=== PATIENT | male | born 1980 | race Asian ===

== ENCOUNTER 2023-12-14 16:35 | Inpatient (IN) | payer OTHER, MEDICARE, SELFPAY ==
[2023-12-10 12:20] VITALS: BMI 27.8
[2023-12-10 12:58] LABS: % Basophils 0.4 % (0-2); % Eosinophils 5.1 % (0-6); % Immature Granulocytes 0.3 % (0-0.5); % Lymphocytes 21.5 % (20.5-51.1); % Monocytes 7.7 % (1.7-9.3); Absolute Eosinophils 0.4 10^3/uL (0-0.7); Absolute Lymphocytes 1.6 10^3/uL (1.2-3.4); Absolute Monocytes 0.6 10^3/uL (0.1-0.6); Hematocrit 27.9 % (39.0-52.0); Hemoglobin 9.3 g/dL (13.0-18.0); Mean Corp Hgb Conc. 33.3 g/dL (33.0-37.0); Mean Corpuscular Hgb 30.5 pg (27.0-31.0); Mean Corpuscular Volume 91.5 fL (80.0-94.0); Mean Platelet Volume 9.8 fL (7.4-10.4); Nucleated Red Blood Cells % 0 % (-); Platelet Count 126 10^3/uL (130-400); Red Blood Cell Count 3.05 10^6/uL (4.70-6.10); White Blood Cell Count 7.6 10^3/uL (4.8-10.8)
[2023-12-10 13:13] LABS: INR 1.16; PT 14.9 Sec (11.4-14.6)
[2023-12-10 13:39] LABS: ALT (SGPT) 23 U/L (0-50); AST (SGOT) 29 U/L (17-59); Albumin 4.3 g/dl (3.5-5.0); Alkaline Phosphatase 75 U/L (38-126); Blood Urea Nitrogen 45 mg/dl (9-20); Calcium 8.8 mg/dl (8.4-10.2); Carbon Dioxide 34 mmol/L (22-30); Chloride 93 mmol/L (98-107); Direct Bilirubin 0.4 mg/dl (0.0-0.4); Estimated Creatinine Clearance 11 ml/min; Glucose 148 mg/dl (70-99); Potassium 4.8 mmol/L (3.5-5.1); Sodium 139 mmol/L (135-145); Total Bilirubin 1.2 mg/dl (0.2-1.3); Total Protein 7.8 g/dl (6.3-8.2); eGFR 7.13
[2023-12-10 14:04] LABS: Urine Albumin 2+ (Neg - Trace); Urine Bilirubin Negative (Negative); Urine Character Clear (Clear); Urine Color Yellow; Urine Glucose Trace (Negative); Urine Ketone Negative (Negative); Urine Leukocyte Negative (Negative); Urine Nitrite Negative (Negative); Urine Occult Blood 1+ (Negative); Urine Urobilinogen Negative (Neg - 1+)
[2023-12-10 14:35] LABS: Urine Amorphous Seen
[2023-12-10 14:37] LABS: Urine Red Blood Cell 0-2 /HPF (0-2)
--- NOTE | 2023-12-10 15:32 | CM ---
spoke with pt in PAT's we discussed preop CABG teaching including sternal and driving restrictions, heis pre vindep, lives with his and 2 daughters (7,8) in an apt with 10 steps to enter. he denies any dme's. he goes to hemodialysis at
[facility] MWF @ 1045am. he has the cardiac educ book, soap and instructions. he is agreeable to a f/u visit form the ct transtional care nurse after dc. cm role explained and all questions answered. plan is for CABG 12/16.
[2023-12-11 09:11] LABS: Glycohemoglobin (HgbA1c) 6.1 % (4.0-5.6)
[2023-12-14] VITALS (10 sets, daily range): BP systolic 153–180; BP diastolic 84–102; BMI 27.6
--- NOTE | 2023-12-14 13:39 | ED.GENMED ---
History of Present Illness
<LYNETTE Shea - Last Filed: 12/14/23 14:50>
General
Chief Complaint: Fainting/Passed Out
Source: patient
Exam Limitations: none
Time Seen by Provider: 12/14/23 13:08
Nursing documentation reviewed up to this point in time: agreed with
Travel History
Have you had any contact with someone who has COVID-19?: No
Do you have any symptoms of coronavirus? Fever > 100 degrees, chills, cough, shortness of breath, sore throat, loss of taste or smell, muscle aches, or headache?: No
History of Present Illness
History of Present Illness:
Patient is a 43-year-old male with past medical history of diabetes(not currently being treated as his hemoglobin A1c was good last time., History of hypertension hyperlipidemia chronic kidney failure end-stage renal disease with dialysis Thursday
Thursday CAD with stents due for bypass surgery next week by Dr. Chacon presents today for evaluation of fall. Patient reports he was walking outside and had not eaten since yesterday afternoon and dropped to his knees. He felt weak. He
reports this is likely because he has not eaten. He denies actually syncope he denies hitting his head he scraped his knees.
Review of Systems
<LYNETTE Shea - Last Filed: 12/14/23 14:50>
Review of Systems
Allergies reviewed?: Yes
All Other Systems: ROS reviewed and negative except as documented in HPI and ROS
Constitutional: Reports no symptoms; Denies fever
Respiratory: Reports cough; Denies trouble breathing
Cardiac: Reports no symptoms
ABD/GI: Reports no symptoms; Denies nausea, vomiting, diarrhea or black stools
: Reports no symptoms
Musculoskeletal: Reports no symptoms
Skin: Reports other (scrape to knees )
Phy Exam
<LYNETTE Shea - Last Filed: 12/14/23 14:50>
General Physical Exam
General Presentation: no apparent distress
General age: appears stated age
General Skin: warm and dry
General Habitus: normal
General Mental: alert
General Hydration: appears well hydrated
Cardiovascular Exam
Cardiovascular Exam: regular rate/rhythm, no murmur and normal peripheral pulses
Pulmonary Exam
Pulmonary Exam: lungs clear and no respiratory distress
Gastrointestinal Exam
Gastrointestinal Exam: non tender, soft and other (brown stool heme neg )
Neurological Exam
Neurological Exam: alert and oriented x3
Musculoskeletal Exam
Musculoskeletal Exam: full ROM
Skin Exam
Skin Exam: normal color
Course
<LYNETTE Shea - Last Filed: 12/14/23 14:50>
Orders/Labs/Results
Orders:
Orders
12/14/23 11:57
Electrocardiogram (*1) Urgent
Reason for Study: Syncope
EKG- Treatment ONCE
12/14/23 13:55
Complete Blood Count/With Diff Urgent
Comprehensive Metabolic Panel Urgent
12/14/23 15:02
CR Chest Portable - 1 View Urgent
Comment:
Reason For Exam: sob
Reason Study Needs to be Portable: Patient Unstable
12/14/23 15:03
Cardiac Monitoring- Treatment ONCE
Dextrose 50%-Water [Dextrose 50% Syringe] 12.5 grams IV [id number] PRN
Dextrose 50%-Water [Dextrose 50% Syringe] 25 grams IV NOW STA
Insulin Human Regular [Novolin R] 5 units IV NOW STA
Sodium Bicarbonate 50 meq IV NOW STA
Sodium Zirconium Cyclosilicate [Lokelma] 5 gram PO NOW STA
12/14/23 15:09
NEPHROLOGY CONSULT Routine
Consulting Provider: Sameera Girard
Was physician already notified: Yes
12/14/23 15:12
Cardiothoracic Surgery Consult Routine
Consulting Provider: Sharan Chacon
Was physician already notified: Yes
12/14/23 17:35
Potassium Urgent
Comment: draw 2 hours after regular insulin IV administration
Abnormal Lab Results
12/14/23
13:55
RBC 2.77 L 10^6/uL
(4.70-6.10)
Hgb 8.2 L g/dL
(13.0-18.0)
Hct 25.2 L %
(39.0-52.0)
MCHC 32.5 L g/dL
(33.0-37.0)
RDW 15.3 H %
(11.5-14.5)
Plt Count 122 L 10^3/uL
(130-400)
Absolute Neuts (auto) 7.4 H 10^3/uL
(1.4-6.5)
Absolute Monos (auto) 0.8 H 10^3/uL
(0.1-0.6)
Neutrophils % 76.6 H %
(42.2-75.2)
Lymphocytes % 12.6 L %
(20.5-51.1)
Potassium 5.5 H mmol/L
(3.5-5.1)
BUN 98 H mg/dl
(9-20)
Creatinine 13.4 H* mg/dL
(0.7-1.3)
Glucose 130 H mg/dl
(70-99)
12/14/23 13:55
Vital Signs
Initial and Last Documented VS:
Initial Vital Signs
Temp Pulse Resp BP Pulse Ox
98.6 F 90 18 179/101 94
12/14/23 11:54 12/14/23 11:54 12/14/23 11:54 12/14/23 11:54 12/14/23 11:54
Last Documented Vital Signs
Temp Pulse Resp BP Pulse Ox
98.6 F 90 18 179/101 94
12/14/23 11:54 12/14/23 11:54 12/14/23 11:54 12/14/23 11:54 12/14/23 11:54
<Krishna Vicente, - Last Filed: 12/14/23 15:28>
Orders/Labs/Results
Orders:
Orders
12/14/23 11:57
Electrocardiogram (*1) Urgent
Reason for Study: Syncope
EKG- Treatment ONCE
12/14/23 13:55
Complete Blood Count/With Diff Urgent
Comprehensive Metabolic Panel Urgent
12/14/23 15:02
CR Chest Portable - 1 View Urgent
Comment:
Reason For Exam: sob
Reason Study Needs to be Portable: Patient Unstable
12/14/23 15:03
Cardiac Monitoring- Treatment ONCE
Dextrose 50%-Water [Dextrose 50% Syringe] 12.5 grams IV [id number] PRN
Dextrose 50%-Water [Dextrose 50% Syringe] 25 grams IV NOW STA
Insulin Human Regular [Novolin R] 5 units IV NOW STA
Sodium Bicarbonate 50 meq IV NOW STA
Sodium Zirconium Cyclosilicate [Lokelma] 5 gram PO NOW STA
12/14/23 15:09
NEPHROLOGY CONSULT Routine
Consulting Provider: Sameera Girard
Was physician already notified: Yes
12/14/23 15:12
Cardiothoracic Surgery Consult Routine
Consulting Provider: Sharan Chacon
Was physician already notified: Yes
12/14/23 17:35
Potassium Urgent
Comment: draw 2 hours after regular insulin IV administration
Abnormal Lab Results
12/14/23
13:55
RBC 2.77 L 10^6/uL
(4.70-6.10)
Hgb 8.2 L g/dL
(13.0-18.0)
Hct 25.2 L %
(39.0-52.0)
MCHC 32.5 L g/dL
(33.0-37.0)
RDW 15.3 H %
(11.5-14.5)
Plt Count 122 L 10^3/uL
(130-400)
Absolute Neuts (auto) 7.4 H 10^3/uL
(1.4-6.5)
Absolute Monos (auto) 0.8 H 10^3/uL
(0.1-0.6)
Neutrophils % 76.6 H %
(42.2-75.2)
Lymphocytes % 12.6 L %
(20.5-51.1)
Potassium 5.5 H mmol/L
(3.5-5.1)
BUN 98 H mg/dl
(9-20)
Creatinine 13.4 H* mg/dL
(0.7-1.3)
Glucose 130 H mg/dl
(70-99)
12/14/23 13:55
Vital Signs
Initial and Last Documented VS:
Initial Vital Signs
Temp Pulse Resp BP Pulse Ox
98.6 F 90 18 179/101 94
12/14/23 11:54 12/14/23 11:54 12/14/23 11:54 12/14/23 11:54 12/14/23 11:54
Last Documented Vital Signs
Temp Pulse Resp BP Pulse Ox
98.6 F 90 18 179/101 94
12/14/23 11:54 12/14/23 11:54 12/14/23 11:54 12/14/23 11:54 12/14/23 11:54
<LYNETTE Shea - Last Filed: 12/14/23 14:50>
MDM/Problems Addressed
MDM/Problems Addressed:
43 yr old male ESRD , CAD on hemodialysis was walking his dog today and fell to his knees. He felt weak. He believes it is from the fact that he did not eat since yesterday afternoon. He presents to the ER awake alert has no complaints except
that he is hungry. He is due for dialysis today. He reports that he previously was a diabetic but his hemoglobin A1c was around 5 and therefore they stopped his medication. He presents with a hemoglobin of 8.2. He recently had blood work December 09
as an outpatient and had a hemoglobin 9.3. This was done because he is scheduled to have bypass surgery next week. He denies any black or dark stools. On exam he has brown stool heme-negative. He has a normal white count of 9.7 is afebrile.
Potassium 5.5 BUN/creatinine obviously elevated 98 and 2.4. Glucose 130. He has abrasions to bilateral knees and reports tetanus is up-to-date. On exam he denies shortness of breath does have some x-ray wheezing and did go down to the high 80s on
room air though he denies shortness of breath. He denies any recent fevers but has had a mild cough recently. Will check chest x-ray
Chronic conditions affecting care:
Hemodialysis
<Krishna Vicente DO - Last Filed: 12/14/23 15:28>
*Critical Care Note
Total Time (30-74mins, 75-104mins- exclusive of procedures): 32
ED Attending Note
<LYNETTE Shea - Last Filed: 12/14/23 14:50>
-
Portions of this chart may have been created with voice recognition software.� Occasional wrong word or��sound alike� substitutions may have occurred due to the inherent limitations of voice recognition software.
<Krishna Vicente DO - Last Filed: 12/14/23 15:28>
ED Attending Note
Patient seen and examined by attending physician: Yes
I performed the substantive portion of visit, reviewed & personally made and approve the management plan that is documented in note by myself or ADEEL.: Yes
ED Attending Note:
Seen with INSTRUCTIONAL DESIGNER examined independently briefly 43-year male ESRD followed at [facility] scheduled for bypass surgery this at [facility] Dr. Chacon's outside walking passed out scratched his knees
Here he is currently ill-appearing, sats in the high 80s comes up on oxygen EKG noted potassium and labs noted chest x-ray pending believe however situation would be prudent to keep him here at [facility] message sent to hospitalist CT surgery and
nephrology
Discharge Plan
Departure
Patient Disposition: Admit
Date of Disposition: 12/14/23
Time of Disposition: 15:13
Admit to: Telemetry
Presentation/result/management discussed w/ accepting MD/DO: Hospitalist
Patient with high blood pressure during this ER visit?: Yes
Condition: Fair
Discharge Problem:
Syncope and collapse, Anemia in ESRD (end-stage renal disease), Hypoxemia
Prescriptions:
No Action
atorvastatin 40 mg Tablet
40 mg PO DAILY
carvedilol 25 mg Tablet
25 mg PO BID
Dialyvite 800 0.8 mg Tablet
1 tab PO DAILY
losartan 100 mg Tablet
100 mg PO DAILY
amoxicillin-pot clavulanate 875-125 mg Tablet
1 tab PO BID
cholecalciferol (vitamin D3) [Vitamin D3] 25 mcg (1,000 unit) Tablet
25 mcg PO DAILY
sevelamer carbonate 800 mg Tablet
800 mg PO TID
prasugrel 10 mg Tablet
10 mg PO DAILY
aspirin 81 mg Tablet,Delayed Release (/Ec)
81 mg PO DAILY
lidocaine-prilocaine 2.5-2.5 % Cream
1 applic TOPICAL DAILYPRN PRN (Reason: before hemodialysis)
Medical Marijuana
2 tab PO DAILYPRN PRN (Reason: mild pain)
Referrals:
eGrman Borrero MD [Family Provider] -
Interventions
Interventions:
*Risk Screen - Suicide Last Done: 12/14/23 11:54
*General Assessment Last Done: 12/14/23 11:54
*Neglect/Abuse Screening Last Done: 12/14/23 11:54
*ED COVID-19 Vaccine History Last Done: 12/14/23 11:54
Discharge Date and Time
Print Language: SLOVAK
[2023-12-14 14:24] LABS: % Basophils 0.3 % (0-2); % Eosinophils 1.5 % (0-6); % Immature Granulocytes 0.4 % (0-0.5); % Lymphocytes 12.6 % (20.5-51.1); % Monocytes 8.6 % (1.7-9.3); % Neutrophils 76.6 % (42.2-75.2); Absolute Eosinophils 0.2 10^3/uL (0-0.7); Absolute Lymphocytes 1.2 10^3/uL (1.2-3.4); Absolute Monocytes 0.8 10^3/uL (0.1-0.6); Absolute Neutrophils 7.4 10^3/uL (1.4-6.5); Hematocrit 25.2 % (39.0-52.0); Hemoglobin 8.2 g/dL (13.0-18.0); Mean Corp Hgb Conc. 32.5 g/dL (33.0-37.0); Mean Corpuscular Hgb 29.6 pg (27.0-31.0); Mean Platelet Volume 10.3 fL (7.4-10.4); Nucleated Red Blood Cells % 0 % (-); Platelet Count 122 10^3/uL (130-400); Red Blood Cell Count 2.77 10^6/uL (4.70-6.10); Red Cell Dist. Width 15.3 % (11.5-14.5); White Blood Cell Count 9.7 10^3/uL (4.8-10.8)
[2023-12-14 14:40] LABS: ALT (SGPT) 21 U/L (0-50); AST (SGOT) 27 U/L (17-59); Albumin 4.1 g/dl (3.5-5.0); Alkaline Phosphatase 76 U/L (38-126); Blood Urea Nitrogen 98 mg/dl (9-20); Calcium 9.1 mg/dl (8.4-10.2); Carbon Dioxide 23 mmol/L (22-30); Chloride 102 mmol/L (98-107); Glucose 130 mg/dl (70-99); Potassium 5.5 mmol/L (3.5-5.1); Sodium 140 mmol/L (135-145); Total Protein 7.5 g/dl (6.3-8.2); eGFR 4.31
[2023-12-14] MEDS: NOVOLIN R 5 UNITS IV (15:19)
[2023-12-14] MEDS: DEXTROSE 50% SYRINGE 25 GRAMS IV (15:20)
[2023-12-14] MEDS: SODIUM BICARBONATE 50 MEQ IV (15:24)
[2023-12-14] MEDS: LOKELMA 5 GRAM PO (15:24)
--- NOTE | 2023-12-14 15:30 | HPS.HSE ---
Family Physician
-
Family Physician: German Borrero MD
Chief Complaint
-
Dizziness, fall, knee abrasions, chest pain with productive yellow cough
History of Present Illness
43-year-old male states he was walking outside when he felt weak dropping to his knees where he sustained some abrasions. He reports he had not eaten since yesterday afternoon and felt it was due to this. He does report some chest pain with
coughing yesterday. He missed dialysis this a.m. at [facility] [place] for end-stage renal disease. He typically gets dialysis Thursday and Fridays. He has history of CAD with cardiac stents and is due for CABG on
12/17/[address] Chacon. The patient reports he has been under the care of a machine pecan picker at [place] for osteomyelitis of his left heel. He wanted to do debridement, but needed cardiac clearance first. He currently has a nickel sized wound to
the left heel with no active drainage no surrounding erythema. He reports he has been on Augmentin for the past 2 months but has not taken it in the last week and a half due to cost of it at the pharmacy. He is unsure of his cardiothoracic surgeon
is aware of his osteomyelitis to the heel. Patient denies headache, LOC, neck pain, palpitations, shortness breath, abdominal pain, nausea, vomit, diarrhea, urinary symptoms. He has medical history of CAD/cardiac stents, HTN, HLD, ESRD dialysis
Thursday, anemia of chronic disease/CKD, chronic thrombocytopenia, DM2�controlled, HLD, osteomyelitis left heel
Medical History
Past Medical History
Past Medical History: Reports Other
Additional Past Medical History:
CAD/cardiac stents
HTN,
HLD
ESRD dialysis Thursday
anemia of chronic disease/CKD
chronic thrombocytopenia
DM2�controlled
HLD
Osteomyelitis left heel
Past Surgical History: Reports Other
Additional Past Surgical History:
CAD with cardiac stents
Left forearm dialysis fistula
Left toe first and fifth amputation
bilateral cataract extraction
Social History
Tobacco: Non-smoker
Alcohol: None
Drug: None
Employment: Disabled
Family History
Family History: Not pertinent
Allergies / Home Medications
Allergies reflects when Allergies were last updated in [employer].
Home Medications with original date entered in [employer]
Allergy/Medication List:
Allergies
Allergy/AdvReac Type Severity Reaction Status Date / Time
vancomycin Allergy chills Verified 12/14/23 11:57
Home Medications
amoxicillin 875 mg-potassium clavulanate 125 mg tablet 1 tab PO BID 12/08/23
atorvastatin 40 mg tablet 40 mg PO DAILY 12/08/23
carvedilol 25 mg tablet 25 mg PO BID 12/08/23
cholecalciferol (vitamin D3) 25 mcg (1,000 unit) tablet (Vitamin D3) 25 mcg PO DAILY 12/08/23
losartan 100 mg tablet 100 mg PO DAILY 12/08/23
prasugrel 10 mg tablet 10 mg PO DAILY 12/08/23
sevelamer carbonate 800 mg tablet 800 mg PO TID 12/08/23
vitamin B complex-vitamin C-folic acid 0.8 mg tablet (Dialyvite 800) 1 tab PO DAILY 12/08/23
Medical Marijuana 2 tab PO DAILYPRN PRN mild pain 12/14/23
aspirin 81 mg tablet,delayed release 81 mg PO DAILY 12/14/23
lidocaine-prilocaine 2.5 %-2.5 % topical cream 1 applic topical DAILYPRN PRN before hemodialysis 12/14/23
Review of Systems
-
History Source: Patient
A 12 point ROS was completed and negative except as noted: Yes
Constitutional: Denies Fever or Chills
EENT: Denies Sore Throat or Runny Nose
Respiratory: Reports Cough (Productive yellow in color); Denies Trouble Breathing
Cardiac: Reports Chest Pain and Other (Near syncope with lightheadedness); Denies Diaphoresis or Palpitations
Abdomen/GI: Reports Nausea; Denies Abdominal Pain, Vomiting, Diarrhea, Constipated or Bloody Stools
: Denies Dysuria, Frequency, Flank Pain or Incontinence
Musculoskeletal: Reports Other (Chronic left heel open wound nondraining); Denies Joint Pain, Joint Swelling or Edema
Skin: Reports Other (Abrasions bilateral knees secondary to fall); Denies Itching or Rash
Neurological: Reports Dizzy and Weakness (Generalized); Denies Headache
Endocrine: Reports No Symptoms
Hematologic/Lymphatic: Reports No Symptoms
Psych: Reports Calm
Physical Exam
Vital Signs
Vital Signs
Temp Pulse Resp BP Pulse Ox
98.6 F 90 18 179/101 94
12/14/23 11:54 12/14/23 11:54 12/14/23 11:54 12/14/23 11:54 12/14/23 11:54
Physical Exam
General: Comfortable and Conversant; No Pain, Fever or Chills
HEENT: NormoCephalic, Anicteric, Moist mucous membranes, PERRLA, [place] Conjunctivae, No Ptosis and Neck Nontender
Respiratory: Clear; No Wheezes, Rales or Rhonchi
Cardiac: S1/S2 and Regular Rhythm; No Murmur, Rub, Gallop or Peripheral Edema
Breast: Deferred by me
GI: Non Tender, Non Distended, Normal Bowel Sounds and No Hepatosplenomegaly
Rectal: Deferred by Provider
Genito-urinary: Deferred by me
Musculoskeletal: No Clubbing, No Cyanosis and No Edema
Skin: Warm, Dry, Ulcers (Chronic left heel wound approximately 2.5 cm, dry, no drainage, negative surrounding erythema, history of chronic osteomyelitis in this area) and Other (Dialysis fistula left forearm with positive thrill); No Rash or Jaundice
Neuro: AO x 3, No Motor Deficits, Cranial Nerves Intact and No Sensory Deficits; No Slurred Speech, Tremors or Sedated
Psych: Calm
Laboratory Results
-
12/14/23 13:55
Laboratory Results
Total Bilirubin 1.0 mg/dl (0.2-1.3) 12/14/23 13:55
AST 27 U/L (17-59) 12/14/23 13:55
ALT 21 U/L (0-50) 12/14/23 13:55
Alkaline Phosphatase 76 U/L (38-126) 12/14/23 13:55
Impression/Plan
-
Impression/plan:
Admit to telemetry
#Acute near syncope unclear etiology
Abrasions bilateral knees
-Check orthostatics
-Check COVID swab
-PT/OT/case management
CXR: No acute disease of the chest. Mild cardiomegaly
#Chest pain
#Prolonged QTc
-Hold prolonged QTc agents
-Consult cardiology CBC - follows at [facility]
-Check troponins
EKG: NSR 90 bpm, QTc 455 MS
# Acute hyperkalemia secondary to missed dialysis
Patient given Lokelma 5 g in ER, finding an insulin IV with dextrose and bicarb
-Follow BMP
#Chronic osteomyelitis left heel
-Is on chronic Augmentin has not taken the last week and a half due to cost we will resume
-Patient follows with machine pecan picker at [place] was due for debridement but needed cardiac clearance first
-Consult wound care for left heel open wound
#HTN�benign
BP 179/101
-Continue carvedilol 25 mg p.o. twice daily with hold parameters, losartan 100 mg daily
-Will give Coreg 25 mg now
-IV hydralazine 5 mg every 6 as needed SBP>160
#ESRD on dialysis Thursday
Missed dialysis at [facility]
-Consult Nephro
-Follow BMP
-Continue sevelamer 800 mg 3 times daily
#Anemia chronic disease/CKD
Creatinine 8.2 was 9.3 on 12/10/2023
-Continue B complex, vitamin D supplement
#Chronic thrombocytopenia
PLT 122 appears baseline
-Follow CBC
#CAD/cardiac stents
-Patient due for CABG by Dr. Chacon next week he was made aware and will possibly be pushed to later date
-Continue carvedilol, aspirin, statin
-Continue Effient 10 mg daily
-Consult cardiothoracic surgery
#DM2-controlled
Will check A1c
#HLD
-Continue statin
DVT prophylaxis
Subcu heparin
Full code
--- NOTE | 2023-12-14 15:31 | W.PN.UPDATE ---
Update Note
Progress Note Update
I saw and examined the patient.
The CANDY STARCH MOLD PRINTER or PA's note was reviewed and I agree with the note.
Comment: 43-year-old male with past medical history of diabetes, CAD with stents due for bypass, hypertension, hyperlipidemia, ESRD on hemodialysis came to the hospital with near syncope and fall. Per patient he has not eaten since yesterday and
then dropped to his knees when he was walking his dog. Denies any chest pain, shortness of breath. He missed his dialysis today. Consult nephrology, CT surgery. Monitor for any arrhythmia.check trop. cardiology. will need HD. CXR without any
PNA.
General: No Apparent Distress and Obese
HEENT: PERRLA
Respiratory: Clear to Auscultation and Rales; Negative Wheezes
Cardiac: Regular Rhythm and S1/S2
GI: Soft and Nontender
Musculoskeletal: No Edema
Skin: Warm and Dry; Negative Rash
Neuro: AO x 3
Psych: Calm
I spent a total of 77 minutes with the patient or on the floor. More than 50% of this time involved counseling and coordination of care.
--- NOTE | 2023-12-14 16:00 | W.CON.NEPH ---
Consultation
-
Date/Time Consultation Requested: 12/14/2023 15:09
Date/Time Consultation Performed: 12/14/2023 4:00PM
Requesting Provider: Krishna Vicente
Performing Provider: Sameera Girard
Reason for Consultation: ESRD on HD
Medical History
-
Chief Complaint: ESRD on HD
History of Present Illness:
Mr. Parr is a 43YOM with PMH of CAD, HTN, DLD, ESRD on HD (MWF) anemia, thrombocytoepnia, T2DM, DLD who presents to the [facility] after a feeling of weakness.
He states he was walking his dog and fell down to his knees. He did not lose consciousness. He informed his dialysis unit who told him to present to the nearest ER. States that he feels fine, he is breathing well. Tries to be compliant with a renal
diet but not always.
He is due for CABG in [address] Chacon.
He dialyzes in [place]. He goes MWF. Performs through [facility]. No issues recently.
Past Medical History
CAD/cardiac stents, HTN, HLD, ESRD dialysis Thursday, anemia of chronic disease/CKD, chronic thrombocytopenia, DM2�controlled, HLD
Past Surgical History: Other
Social History
Tobacco: Non-Smoker
Alcohol: None
Drug: None
Personal:
Living: With Family
Family History
Family History: Not Pertinent
Allergies / Home Medications
Allergy/AdvReac Type Severity Reaction Status Date / Time
vancomycin Allergy chills Verified 12/14/23 11:57
�Medication �Instructions �Recorded �Confirmed �Type
amoxicillin 875 mg-potassium 1 tab PO BID 12/08/23 12/14/23 History
clavulanate 125 mg tablet
atorvastatin 40 mg tablet 40 mg PO DAILY 12/08/23 12/14/23 History
carvedilol 25 mg tablet 25 mg PO BID 12/08/23 12/14/23 History
cholecalciferol (vitamin D3) 25 25 mcg PO DAILY 12/08/23 12/14/23 History
mcg (1,000 unit) tablet (Vitamin
D3)
losartan 100 mg tablet 100 mg PO DAILY 12/08/23 12/14/23 History
prasugrel 10 mg tablet 10 mg PO DAILY 12/08/23 12/14/23 History
sevelamer carbonate 800 mg tablet 800 mg PO TID 12/08/23 12/14/23 History
vitamin B complex-vitamin C-folic 1 tab PO DAILY 12/08/23 12/14/23 History
acid 0.8 mg tablet (Dialyvite 800)
Medical Marijuana 2 tab PO DAILYPRN PRN mild pain 12/14/23 12/14/23 History
aspirin 81 mg tablet,delayed 81 mg PO DAILY 12/14/23 12/14/23 History
release
lidocaine-prilocaine 2.5 %-2.5 % 1 applic topical DAILYPRN PRN 12/14/23 12/14/23 History
topical cream before hemodialysis
Review of Systems
-
History Source: Patient
All other systems: Negative unless noted
Constitutional: Weight Gain
Physical Exam
Vital Signs
Vital Signs
Temp Pulse Resp BP Pulse Ox
98.6 F 90 18 179/101 94
12/14/23 11:54 12/14/23 11:54 12/14/23 11:54 12/14/23 11:54 12/14/23 11:54
Lab Results
WBC 9.7 10^3/uL (4.8-10.8) 12/14/23 13:55
RBC 2.77 10^6/uL (4.70-6.10) L 12/14/23 13:55
Hgb 8.2 g/dL (13.0-18.0) L 12/14/23 13:55
Hct 25.2 % (39.0-52.0) L 12/14/23 13:55
Plt Count 122 10^3/uL (130-400) L 12/14/23 13:55
Sodium 140 mmol/L (135-145) 12/14/23 13:55
Chloride 102 mmol/L (98-107) 12/14/23 13:55
Carbon Dioxide 23 mmol/L (22-30) 12/14/23 13:55
BUN 98 mg/dl (9-20) H 12/14/23 13:55
Creatinine 13.4 mg/dL (0.7-1.3) H* 12/14/23 13:55
eGFR 4.31 12/14/23 13:55
Glucose 130 mg/dl (70-99) H 12/14/23 13:55
Calcium 9.1 mg/dl (8.4-10.2) 12/14/23 13:55
Albumin 4.1 g/dl (3.5-5.0) 12/14/23 13:55
Physical Exam
General: AOx3, No Distress and Nontoxic
HEENT: PERRL, EOMI, Anicteric, Conjunctivae Clear, Ear/Nose Intact, Hearing Normal, Oropharynx Clear/Moist, Dentition Intact, Facial Symmetry, Neck Supple, Trachea Midline, No JVD and No Thyromegaly
Respiratory: Clear
Cardiac: S1/S2 and Regular Rate/Rhythm
Breast: N/A
Abdomen: Soft, Nontender, Nondistended and Normal Bowel Sounds
Rectal: Deferred by Provider
Genito-urinary: No Costovertebral Tender
Musculoskeletal: No Clubbing, No Cyanosis and No Edema
Skin: No Rash, Warm, Dry, No Clubbing, No Cyanosis, Normal Turgor and No Bruising
Neuro: Nonfocal/Grossly Intact
Hematologic/Lymphatic: No Cervical Lymphadenopathy
Psych: Mood/afflect pleasant, Insight/judgement good and Appropriate
Data Reviewed
-
Radiology: Image Personally Visualized and interpreted (no acute cardiopulmonary process)
Labs: Labs Reviewed by me and Discussed with Patient
Old Records: Reviewed
Assessment/Plan
-
Assessment:
ESRD on HD (~2 years, via [facility])
T2DM
HTN
CAD
osteomyelitis of heel
DLD
anemia
Plan:
- plan for HD tomorrow due to scheduling issues
- awaiting cardiothoracic consult
- plan for [facility] with HD
--- NOTE | 2023-12-14 16:09 | CON.CAR ---
Addendum entered and electronically signed by Wing Kendall MD 12/14/23 19:19:
I saw and examined the patient.
The ALL TERRAIN VEHICLE TECHNICIAN's note was reviewed and I agree with the note.
43-year-old male with a history of prior history of LAD stenting who was noted to have multivessel coronary artery disease on catheterization in October and is scheduled for coronary artery bypass grafting by Dr. Chacon. Patient's history is also
notable for end-stage renal disease on hemodialysis, hypertension, diabetes, hypercholesterolemia diabetic retinopathy diabetic neuropathy and a history of osteomyelitis patient was walking his dog and felt weak/lightheaded and had a drop to his
knees note he said he was able to get up quickly and then get back home. No complaints of chest pain or palpitations. No complaints of increased shortness of breath. Patient had not eaten today before the event. He also did not have his dialysis
today now currently comfortable. He states he has had a cough for weeks or months.
#Weakness/lightheadedness. Possible presyncopal episode exact etiology unclear multiple factors may contribute including the fact that he had nothing to eat and drink today. Possibility of arrhythmia is also a consideration or symptoms related to
exertional ischemia patient with known multivessel coronary disease.
-Monitor on telemetry
-Serial troponins
-Optimize treatment of anemia
# Multivessel coronary disease. Patient is scheduled for coronary artery bypass grafting.
- Consult CT surgery
- continue ASA-
- Prasugrel on hold for CABG - He says his last dose was 12/09/23
# ESRD. Few crackles at bases. Missed dialysis today. Plan for dialysis tomorrow. Monitor respiratory status.
Original Note:
Consultation
Consultation Request
Date/Time Consultation Requested: 12/14/2023 16:00
Date/Time Consultation Performed: 12/14/2023 16:10
Requesting Provider: LYNETTE Prince
Performing Provider: LYNETTE Knowles for Dr. Kendall
Reason for Consultation: CAD
Medical History
-
Chief Complaint: Syncope
History of Present Illness:
Mr. Lukasz Parr is an extremely pleasant 43 year old [place] male with past medical history of coronary artery disease status post mid LAD stent from 08/2022 and 05/2023, hypertension, diabetes type 2, dyslipidemia, diabetic neuropathy, diabetic
retinopathy, osteomyelitis to the heel, and end-stage renal disease on dialysis presents with presyncope. He had a sudden onset of weakness while walking his dog. He was unsure if it was related to not having anything to eat yet today. He missed
dialysis this morning. He was referred to the emergency department. He is not having any chest pain. He is not having any shortness of breath. He reports no loss of consciousness. He is not having any palpitations. His EKG is stable. His
troponin is pending.
Past Medical History
Past Medical History: CAD, HTN, Hypercholesterolemia, NIDDM and Renal Failure (ESRD on HD)
Social History
Tobacco: Former Smoker
Drug: Marijuana (medical)
Personal:
Living: With Family
Employment: Disabled
Family History
Family History: Reviewed & Not Pertinent
Allergies / Home Medications
Allergy/AdvReac Type Severity Reaction Status Date / Time
vancomycin Allergy chills Verified 12/14/23 11:57
�Medication �Instructions �Recorded �Confirmed �Type
amoxicillin 875 mg-potassium 1 tab PO BID 12/08/23 12/14/23 History
clavulanate 125 mg tablet
atorvastatin 40 mg tablet 40 mg PO DAILY 12/08/23 12/14/23 History
carvedilol 25 mg tablet 25 mg PO BID 12/08/23 12/14/23 History
cholecalciferol (vitamin D3) 25 25 mcg PO DAILY 12/08/23 12/14/23 History
mcg (1,000 unit) tablet (Vitamin
D3)
losartan 100 mg tablet 100 mg PO DAILY 12/08/23 12/14/23 History
prasugrel 10 mg tablet 10 mg PO DAILY 12/08/23 12/14/23 History
sevelamer carbonate 800 mg tablet 800 mg PO TID 12/08/23 12/14/23 History
vitamin B complex-vitamin C-folic 1 tab PO DAILY 12/08/23 12/14/23 History
acid 0.8 mg tablet (Dialyvite 800)
Medical Marijuana 2 tab PO DAILYPRN PRN mild pain 12/14/23 12/14/23 History
aspirin 81 mg tablet,delayed 81 mg PO DAILY 12/14/23 12/14/23 History
release
lidocaine-prilocaine 2.5 %-2.5 % 1 applic topical DAILYPRN PRN 12/14/23 12/14/23 History
topical cream before hemodialysis
Review of Systems
-
History Source: Patient
All other systems: Negative unless noted
Constitutional: Fatigue
EENT: No Symptoms
Respiratory: No Symptoms
Cardiac: No Symptoms
: No Symptoms
Musculoskeletal: No Symptoms
Skin: No Symptoms
Neurological: No Symptoms
Endocrine: No Symptoms
Hematologic/Lymphatic: No Symptoms
Physical Exam
Vital Signs
Temp Pulse Resp BP Pulse Ox
98.6 F 90 18 179/101 94
12/14/23 11:54 12/14/23 11:54 12/14/23 11:54 12/14/23 11:54 12/14/23 11:54
Lab Results
12/14/23 13:55
Physical Exam
General: Well Developed, Well Nourished, No Apparent Distress and Comfortable
HEENT: Normocephalic and Anicteric
Respiratory: Non Labored Respirations
Cardiac: S1/S2 and Regular Rhythm
Breast: Deferred by me
GI: Soft, Non Tender, Non Distended and Normal Bowel Sounds
Rectal: Deferred by Provider
Genito-urinary: No Costovertebral Tender
Musculoskeletal: No Clubbing, No Cyanosis and No Edema
Skin: Warm and Dry
Neuro: AO x 3
Psych: Calm
Impression / Plan
-
Pre syncope, weakness
-Troponin pending
-No LOC
-Follow telemetry
MVCAD
-Plans for CABG with Dr. Chacon on , 12/17/2023
-CT Surg consult
HTN, BP elevated, resume medical therapy
ESRD on HD, missed HD today, Nephrology following
HLD, continue statin
Type II DM, Hgba1c 6.1%
Anemia of chronic disease
Chronic thrombocytopenia
Osteomyelitis, some non-adherence to amoxicillin
Former smoker, continued cessation recommended
Data Reviewed
-
EKG: Report Reviewed by me (Sinus rhythm, rate 90)
Radiology: Report Reviewed by me (CXR: No acute disease of the chest. Mild cardiomegaly)
Labs: Labs Reviewed by me
Old Records: Reviewed
[2023-12-14] MEDS: COREG 25 MG PO (16:38)
[2023-12-14 16:47] LABS: COVID-19 Antigen Negative (Negative)
[2023-12-14 17:08] LABS: Magnesium 2.5 mg/dl (1.6-2.3); Phosphorus 4.3 mg/dl (2.5-4.5)
--- NOTE | 2023-12-14 18:15 | CONSULT.CT ---
Consultation
-
Date/Time Consultation Requested: 12/13
Date/Time Consultation Performed: 12/13
Performing Provider: Zandra Parra for Dr. Sharan Chacon
Reason for Consultation: pre-op for CABG, weak & missed HD treatment 12/13
Patient History
Physicians
Family Physician: Emil Smith
Outpatient Covered Button Maker: Dr Weiss ([facility])
Inpatient Covered Button Maker: [facility] Cardiology
History of Present Illness
Lukasz Parr is a 43-year-old -[place] male with known CAD an drior LAD stent, was scheduled for elective CABG on 12/17/[address] Sharan Chacon. Patient was admitted via the ED on 12/13 with weakness (reports last meal 12/12 lunch) and
fall causing him to miss regularly scheduled dialysis treatment today at [facility]. Patient denies syncope but has abrasions on B/L knees. Denies nausea/vomiting/abdominal pain as cause for not eating. Denies food insecurity. Denies
chest discomfort or shortness of breath. Initial troponin 1.1-serial troponin pending. ECG with NSR and no ST abnormalities.
Cath 11/26/23:
LAD: mid LAD stent stenosis>ALEX, distal D2 occ
CX: ok
RCA: sev mid RCA
Past Medical History
Past Medical History: CAD (s/p LAD stent 09/18 & 06/20), HTN, Hypercholesterolemia, NIDDM (with neuropathy and retinopathy (R eye injections [id number])-no meds as A1C 5-6 ), Renal Failure (CKD stage 5 on HD qM-W-F @ [facility]) and Other
(chronic left foot wound, anemia of chronic disease, chronic thrombocytopenia)
Past Surgical History
Past Surgical History: PCI/Stent (LAD 09/18 & 06/20, Left foot 1st & 2nd toe amputations)
Family History
Mother: at Age (60) and Cause of (DM, HTN)
Father: at Age (80) and Cause of (asthma, dementia)
Social History
Alcohol: Occasional
Drug: None and Marijuana (medical)
Tobacco: Former Smoker (1pk/yr; quit 2 years ago)
Personal:
Living: With Spouse
Employment: Disabled ([employer])
Allergies
Allergy/AdvReac Type Severity Reaction Status Date / Time
vancomycin Allergy chills Verified 12/14/23 11:57
Home Medications
�Medication �Instructions �Recorded �Confirmed �Type
amoxicillin 875 mg-potassium 1 tab PO BID 12/08/23 12/14/23 History
clavulanate 125 mg tablet
atorvastatin 40 mg tablet 40 mg PO DAILY 12/08/23 12/14/23 History
carvedilol 25 mg tablet 25 mg PO BID 12/08/23 12/14/23 History
cholecalciferol (vitamin D3) 25 25 mcg PO DAILY 12/08/23 12/14/23 History
mcg (1,000 unit) tablet (Vitamin
D3)
losartan 100 mg tablet 100 mg PO DAILY 12/08/23 12/14/23 History
prasugrel 10 mg tablet 10 mg PO DAILY 12/08/23 12/14/23 History
sevelamer carbonate 800 mg tablet 800 mg PO TID 12/08/23 12/14/23 History
vitamin B complex-vitamin C-folic 1 tab PO DAILY 12/08/23 12/14/23 History
acid 0.8 mg tablet (Dialyvite 800)
Medical Marijuana 2 tab PO DAILYPRN PRN mild pain 12/14/23 12/14/23 History
aspirin 81 mg tablet,delayed 81 mg PO DAILY 12/14/23 12/14/23 History
release
lidocaine-prilocaine 2.5 %-2.5 % 1 applic topical DAILYPRN PRN 12/14/23 12/14/23 History
topical cream before hemodialysis
Review of Systems
-
History Source: Patient
General: Reports No Symptoms
HEENT: Reports Visual Changes (chronic R eye blurriness)
Respiratory: Reports No Symptoms
Cardiac: Reports No Symptoms
Abdomen/GI: Reports No Symptoms
: Reports No Symptoms
Musculoskeletal: Reports No Symptoms
Skin: Reports No Symptoms
Neurological: Reports No Symptoms
Vascular: Reports No Symptoms
Physical Exam
Vital Signs
Temp 98.2 F 12/14/23 17:37
Temp route: Oral 12/14/23 17:37
Pulse 92 12/14/23 17:37
Resp Rate 16 12/14/23 17:37
Blood pressure 172/102 12/14/23 17:37
Blood pressure extremity used: Right upper arm 12/14/23 17:37
Position: Lying 12/14/23 17:37
MAP (cuff-Coral Monitor) 121 12/14/23 17:00
SaO2 93 12/14/23 17:37
Nasal Cannula flow liters per minute 2 12/14/23 17:37
Oxygen Mode of Delivery Room air 12/14/23 11:54
Can the patient verbally communicate their pain? Yes 12/14/23 17:20
Actual Weight 87.2 kg 12/14/23 15:07
Body Mass Index (BMI) 27.6 12/14/23 15:07
Labs
12/14/23 13:55
Troponin I 1.190 ng/ml H* 12/14/23 16:19
Exam
General: Well Developed, Well Nourished and No Apparent Distress
HEENT: Normocephalic, Anicteric, Moist Mucous Membranes and PERRLA
Respiratory: Clear
Cardiac: S1/S2 and Regular Rhythm
GI: Soft, Non Tender, Non Distended and Normal Bowel Sounds
Rectal: Deferred by Provider
Skin: Warm and Dry
Extremities: Pulses (+2/4 B/L) and Other (left heel chronic wound-dry; L forearm AV fistula w/palpable thrill)
Lymph: No Lymphadenopathy
Psych: Calm
Assessment / Plan
-
43-year-old male with two-vessel coronary disease, admitted with nonsyncopal fall and missed dialysis appointment today
-Trend serial troponin
- Plan for HD tomorrow per nephrology
- Follow-up on non-contrast CT chest from [facility]
- HOLD prasugrel x 72 hours prior to CABG
- routine pre-op diagnostics (B/L LE vein mapping)
- tentative CABG 12/16
Data Reviewed
-
EKG: Report Reviewed by me and Discussed with Physician
Orthopedic Cast Specialist: Report Reviewed by me and Discussed with Physician
Echo: Report Reviewed by me and Discussed with Physician
Radiology: Report Reviewed by me and Discussed with Physician
Labs: Labs Reviewed by me and Discussed with Physician
[2023-12-14] MEDS: RENVELA 800 MG PO (18:31)
[2023-12-14 20:26] LABS: Potassium 5.2 mmol/L (3.5-5.1)
[2023-12-14] MEDS: MELATONIN 5 MG PO (21:45)
[2023-12-14] MEDS: AUGMENTIN 875 MG/125 MG 1 TABLET PO (21:46)
[2023-12-14] MEDS: HEPARIN 5000 UNITS SC (21:49)
--- NOTE | 2023-12-14 22:58 | PTCARENOTE ---
Pt with a LUE restriction secondary to L forearm fistula. Order received from cardiology for b/l UE blood pressures. D/w ordering cardiology COMPETITIVE SHOPPER, order placed for 'okay to use LUE' for blood pressure this time only. LUE BP 165/96, RUE 166/95. Pt
remains with pink band to LUE.
[2023-12-15] VITALS (8 sets, daily range): BP systolic 134–199; BP diastolic 79–100; BMI 27.5
[2023-12-15 06:12] LABS: % Basophils 0.3 % (0-2); % Eosinophils 1.5 % (0-6); % Immature Granulocytes 0.3 % (0-0.5); % Lymphocytes 10.5 % (20.5-51.1); % Monocytes 6.5 % (1.7-9.3); % Neutrophils 80.9 % (42.2-75.2); Absolute Eosinophils 0.1 10^3/uL (0-0.7); Absolute Monocytes 0.6 10^3/uL (0.1-0.6); Absolute Neutrophils 7.7 10^3/uL (1.4-6.5); Hematocrit 25.8 % (39.0-52.0); Hemoglobin 8.4 g/dL (13.0-18.0); Mean Corp Hgb Conc. 32.6 g/dL (33.0-37.0); Mean Corpuscular Hgb 30.1 pg (27.0-31.0); Mean Corpuscular Volume 92.5 fL (80.0-94.0); Mean Platelet Volume 10.2 fL (7.4-10.4); Nucleated Red Blood Cells % 0 % (-); Platelet Count 120 10^3/uL (130-400); Red Blood Cell Count 2.79 10^6/uL (4.70-6.10); Red Cell Dist. Width 15.4 % (11.5-14.5); White Blood Cell Count 9.6 10^3/uL (4.8-10.8)
[2023-12-15 06:42] LABS: ALT (SGPT) 18 U/L (0-50); AST (SGOT) 28 U/L (17-59); Albumin 3.9 g/dl (3.5-5.0); Alkaline Phosphatase 73 U/L (38-126); Blood Urea Nitrogen 99 mg/dl (9-20); Carbon Dioxide 22 mmol/L (22-30); Chloride 101 mmol/L (98-107); Glucose 116 mg/dl (70-99); HDL Cholesterol 40 mg/dl; LDL Cholesterol, Calculated 41 mg/dl; Potassium 5.3 mmol/L (3.5-5.1); Sodium 140 mmol/L (135-145); Total Bilirubin 1.3 mg/dl (0.2-1.3); Total Cholesterol 103 mg/dl (50-199); Total Protein 7.4 g/dl (6.3-8.2); Triglyceride 112 mg/dl (10-149); Very Low Density Lipoprotein 22 mg/dl (0-30)
[2023-12-15 06:53] LABS: Estimated Creatinine Clearance 7 ml/min
[2023-12-15] MEDS: RENVELA PO (08:15)
[2023-12-15] MEDS: COREG PO (08:19)
--- NOTE | 2023-12-15 08:19 | PTCARENOTE ---
Addendum entered by Debbie Adamson RN 12/15/23 17:52:
3 kilos taken off pt during HD. pt still hypertensive this AM Nephrology and Md made aware. coreg stat order placed. pt follow up bp 137/79. pt with elevated troponin. MD made aware. pt started on heparin gtt this evening by this nurse with a
cosign. gtt started at 10ml/hr and pt given a bolus ordered prior to administration. See MAR for proper documentation. wound care completed by this nurse. pt to be transferred per Cardio prior to CABG on
Original Note:
AM derick held this AM for HD. pt receiving through LUE fistula at this time. started at 0700.
[2023-12-15] MEDS: HEPARIN SC (08:20)
[2023-12-15] MEDS: ASPIR LOW (ENTERIC COATED) 81 MG PO (08:21)
[2023-12-15] MEDS: AUGMENTIN 875 MG/125 MG 1 TABLET PO ×2 (08:21→20:24)
[2023-12-15] MEDS: NEPHROCAP 1 CAPSULE PO (08:21)
[2023-12-15] MEDS: LIPITOR 40 MG PO (08:22)
[2023-12-15] MEDS: VITAMIN D3 (cholecalciferol) 25 MCG PO (08:22)
[2023-12-15] MEDS: RETACRIT 10000 UNITS IV (09:13)
--- NOTE | 2023-12-15 10:43 | W.PN.NEPH.HD ---
Assessment
-
feeling well
planning for HD tomorrow per MWF schedule
CABG on Thrusday
Progress Note - Hemodialysis
-
Date of Service: December 15, 2023
Duration: 45 minutes and 3 hours
Potassium Bath: 3
Calcium Bath: 2.5
Opti-Dialyzer: 160
Ultrafiltration: Other
Blood Flow: 400
Dialysate Flow: 600
EPO: 10K
--- NOTE | 2023-12-15 10:47 | W.PN.CD ---
Addendum entered and electronically signed by Rudy Sharp MD 12/15/23 11:18:
I saw and examined the patient.
The ELECTROMEDICAL EQUIPMENT REPAIRER's note was reviewed and I agree with the note.
Comment: He is without complaint on HD. rrr no m/r/g, his lungs are CTA. Interestingly his Trop is rising. He is awaiting CAB and bp has been markedly elevated. Will get bp undercontrol, and then add hep gtt once improved. Will update echo. Will
follow.
Original Note:
Today's Communication / Plan
-
Echocardiogram
EKG
Trend troponin to peak
Consider heparin gtt with prasugrel hold when BP is closer to normotensive
Start standing hydralazine (PRN not being utilized)
Impression / Plan
-
BACKGROUND: 43 [place] male with past medical history of coronary artery disease status post mid LAD stent from 08/2022 and 05/2023, hypertension, diabetes type 2, dyslipidemia, diabetic neuropathy, diabetic retinopathy, osteomyelitis to the
heel, and end-stage renal disease on dialysis presents with presyncope.
Pre syncope, weakness
-No LOC
-Telemetry stable
Abnormal troponin, type unknown
-Non ishemic k[place] injury versus CAD versus HTN urgency with ESRD on HD
-Troponin being trended, currently 3.120
-EKG
-Echocardiogram
-Treat BP
MVCAD
-Plans for CABG with Dr. Chacon on , 12/17/2023
-Chest CT scheduled for tomorrow at [facility]
-CT Surg consult
HTN Urgency
-BP well above goal
-Hydralazine 25mg TID
ESRD on HD currently, missed HD yesterday, Nephrology following
HLD, continue statin, LDL 41
Type II DM, Hgba1c 6.1%
Anemia of chronic disease
Chronic thrombocytopenia
Osteomyelitis, some non-adherence to amoxicillin due to cost
Former smoker, continued cessation recommended
SUBJECTIVE:
Denies CP, SANTANA, and dizziness
Physical Exam
Vital Signs/Labs
Vital Signs
Temp Pulse Resp BP Pulse Ox
98.0 F 77 18 199/92 99
12/15/23 07:15 12/15/23 07:15 12/15/23 07:15 12/15/23 08:19 12/15/23 07:15
12/14/23 12/15/23 12/16/23
06:59 06:59 06:59
Actual Weight 86.999 kg
12/15/23 05:03
12/15/23 05:03
Magnesium 2.5 mg/dl (1.6-2.3) H 12/14/23 13:55
Triglycerides 112 mg/dl (10-149) 12/15/23 05:03
LDL Cholesterol, Calc 41 mg/dl 12/15/23 05:03
VLDL Cholesterol, Calc 22 mg/dl (0-30) 12/15/23 05:03
HDL Cholesterol 40 mg/dl 12/15/23 05:03
LAB Results
12/14/23 12/14/23 12/15/23
16:19 20:04 08:03
Troponin I 1.190 H* 2.070 H* D 3.120 H*
Physical Exam
Constitutional: No acute distress and Comfortable
EENT: Anicteric and Moist mucous membranes
Cardiovascular: Rhythm & rate is regular, Pedal edema is absent and S1S2 is normal
Respiratory: Respiratory effort normal and Lungs clear to auscul.
GI: Soft, Distention absent, Flat, Non tender and Normal bowel sounds
Neuro/Psych: AO x 3
Other: Skin (warm and dry)
Data Reviewed
-
Date of Service: December 15, 2023
EKG: Ordered by me
Echo: Ordered by me
Labs: Labs Reviewed by me and Labs Ordered by me
Old Records: Reviewed
[2023-12-15 11:10] LABS: Hepatitis B Surface Antigen Negative (Negative)
--- NOTE | 2023-12-15 11:13 | W.PN.HOSP.TC ---
Addendum entered and electronically signed by Michael Boyd MD 12/16/23 11:38:
General: No Apparent Distress
HEENT: PERRLA
Respiratory: Clear to Auscultation
Cardiac: Regular Rhythm and S1/S2
Musculoskeletal: No Edema
Neuro: AO x 3
Psych: Calm
Original Note:
Today's Communication/Plan
-
monitor vitals
see plan
HD today and tomorrow
trop elevated; trend
control BP better
agree with hep gtt once BP better per cardiology
echo
Assessment / Plan
Assessment / Plan
Acute near syncope
Abrasions bilateral knees
-orthostatics
-PT/OT/case management
CXR: No acute disease of the chest. Mild cardiomegaly
#Prolonged QTc
-Hold prolonged QTc agents
-Cardiology following- follows at [facility]
-trop uptrending; denies chest pain. likely NSTEMI. with known CAD, agree that would start IV heparin when BP better
check echo
#CAD/cardiac stents
-Patient due for CABG by Dr. Chacon 12/16
-Continue carvedilol, aspirin, statin
hold prasugrel per cards and CT surgery
cardiothoracic surgery following
# Acute hyperkalemia secondary to missed dialysis
-Follow BMP
#Chronic osteomyelitis left heel
-Is on chronic Augmentin has not taken the last week and a half due to cost we will resume
-Patient follows with hose sprayer at [place] was due for debridement but needed cardiac clearance first
-Consult wound care for left heel open wound
#Hypertensive emergency
start standing hydralazine
-Continue carvedilol 25 mg p.o. twice daily with hold parameters, losartan 100 mg daily
#ESRD on dialysis Thursday
Missed dialysis at [facility]
nephro following
HD nurse rec to hold BP meds pre HD
-Continue sevelamer 800 mg 3 times daily
#Anemia chronic disease 2/2 CKD
monitor
#Chronic thrombocytopenia
monitor
#DM2-controlled
check A1c 6.1
#HLD
-Continue statin
DVT prophylaxis
Subcu heparin
Full code
I spent a total of 52 minutes with the patient or on the floor. More than 50% of this time involved counseling and coordination of care.
Anticipated Discharge: > 48 hours
Subjective/Interval History
-
Date of Service: December 15, 2023
denies chest pain
Objective Data
-
Labs:
Laboratory Results
12/15/23
05:03
WBC 9.6
Hgb 8.4 L
Hct 25.8 L
Plt Count 120 L
Sodium 140
Potassium 5.3 H
Chloride 101
Carbon Dioxide 22
BUN 99 H
Creatinine 15.2 H*
Glucose 116 H
Calcium 9.0
Total Bilirubin 1.3
AST 28
ALT 18
Alkaline Phosphatase 73
Vital Signs:
Vital Signs
Temp Pulse Resp BP Pulse Ox
98.0 F 77 18 199/92 99
12/15/23 07:15 12/15/23 07:15 12/15/23 07:15 12/15/23 08:19 12/15/23 07:15
I&O
12/14/23 12/15/23 12/16/23
06:59 06:59 06:59
Intake Total 520 / 520
Balance 520 / 520
[2023-12-15] MEDS: COREG 25 MG PO ×2 (11:22→20:24)
[2023-12-15 11:27] LABS: Hepatitis B Surface Antibody Positive
[2023-12-15] MEDS: RENVELA 800 MG PO ×2 (13:43→16:11)
[2023-12-15] MEDS: APRESOLINE 25 MG PO ×2 (16:11→22:09)
[2023-12-15 16:23] LABS: APTT 35.6 Sec (23.4-35.0)
--- NOTE | 2023-12-15 16:26 | CM ---
Initial assessment completed with patient who lives with his in a 2nd floor apartment with no elevator, 12 steps to enter, 1 step to enter building. Patient does not have any DME or in-home services. 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
No history of psychiatric hospitalizations. He has been on HD at [facility] since February 2022 and has a -W- schedule. Patient has a L heel ulcer with osteo. He sees a customer service rep and was to have a debridement. wanted cardiac
clearance which resulted in scheduling a CABG for 12/17/23. Cardiac CM also following patient. Patient was taken off his PO diabetic medicine approximately 6 months ago because his A1C was 5.8. In ER patient said he fell to his knees because he was
lightheaded from not eating since the day before. When questioned, patient said he did not eat because he could not stop coughing. He denies having difficulty buying food. In fact he said, absolutely not. [facility]acy is [facility] in [place] and
PCP is Dr. German Borrero. Discharge Plan of Care: TBD based on S/P CABG.
[2023-12-15] MEDS: HEPARIN 25000 UNITS/250 ML IV (17:03)
[2023-12-15] MEDS: HEPARIN 4000 UNITS IV (17:04)
[2023-12-15] MEDS: LIPITOR PO (17:07)
[2023-12-15] MEDS: MELATONIN 5 MG PO (22:10)
[2023-12-15 22:43] LABS: APTT 43.1 Sec (23.4-35.0)
[2023-12-16] VITALS (9 sets, daily range): BP systolic 107–164; BP diastolic 67–82; BMI 26.4
--- NOTE | 2023-12-16 03:57 | DOWNTIME ---
There was a [employer] Client Military Personnel Specialist Downtime on 12/16/2023 from 0100 to 12/16/2023 at 0337. Downtime documentation of patient's care, including medication administrations, has been reconciled in the electronic record per guidelines. Refer to the
patient's paper chart under the miscellaneous tab to see printed paper medication records and downtime forms.
--- NOTE | 2023-12-16 06:37 | W.PN.UPDATE ---
Update Note
Progress Note Update
patient with MVCAD, NSTEMI
-hemodynamically stable
-planned for HD today
-subesquently planned for CABG tomorrow, 12/[address] Chacon
Vital Signs / Labs
-
Vital Signs and Labs:
Temp Pulse Resp BP Pulse Ox
98.0 F 69 19 149/79 95
12/16/23 03:27 12/16/23 03:27 12/16/23 03:27 12/16/23 03:27 12/16/23 03:27
12/10/23 12/10/23 12/15/23
12:33 13:39 05:03
RBC 3.05 L 2.79 L
Hgb 9.3 L 8.4 L
Hct 27.9 L 25.8 L
MCHC 32.6 L
RDW 15.0 H 15.4 H
Plt Count 126 L 120 L
Absolute Neuts (auto) 7.7 H
Absolute Lymphs (auto) 1.0 L
Neutrophils % 80.9 H
Lymphocytes % 10.5 L
PT 14.9 H
APTT
Potassium 5.3 H
Chloride 93 L
Carbon Dioxide 34 H
BUN 45 H 99 H
Creatinine 8.8 H* 15.2 H*
Glucose 148 H 116 H
Hemoglobin A1c 6.1 H
Troponin I
Ur Occult Blood Reflex 1+ A
Urine Glucose Trace A
Urine Albumin (Reflex) 2+ A
12/15/23 12/15/23 12/15/23
08:03 13:55 16:03
RBC
Hgb
Hct
MCHC
RDW
Plt Count
Absolute Neuts (auto)
Absolute Lymphs (auto)
Neutrophils %
Lymphocytes %
PT
APTT 35.6 H
Potassium
Chloride
Carbon Dioxide
BUN
Creatinine
Glucose
Hemoglobin A1c
Troponin I 3.120 H* 3.720 H*
Ur Occult Blood Reflex
Urine Glucose
Urine Albumin (Reflex)
12/15/23
22:25
RBC
Hgb
Hct
MCHC
RDW
Plt Count
Absolute Neuts (auto)
Absolute Lymphs (auto)
Neutrophils %
Lymphocytes %
PT
APTT 43.1 H
Potassium
Chloride
Carbon Dioxide
BUN
Creatinine
Glucose
Hemoglobin A1c
Troponin I 2.950 H*
Ur Occult Blood Reflex
Urine Glucose
Urine Albumin (Reflex)
[2023-12-16 07:00] LABS: % Basophils 0.6 % (0-2); % Eosinophils 5.9 % (0-6); % Immature Granulocytes 0.4 % (0-0.5); % Lymphocytes 22.6 % (20.5-51.1); % Monocytes 10.1 % (1.7-9.3); % Neutrophils 60.4 % (42.2-75.2); Absolute Eosinophils 0.4 10^3/uL (0-0.7); Absolute Lymphocytes 1.5 10^3/uL (1.2-3.4); Absolute Monocytes 0.7 10^3/uL (0.1-0.6); Absolute Neutrophils 4.1 10^3/uL (1.4-6.5); Hematocrit 26.7 % (39.0-52.0); Mean Corp Hgb Conc. 33.7 g/dL (33.0-37.0); Mean Corpuscular Hgb 30.2 pg (27.0-31.0); Mean Corpuscular Volume 89.6 fL (80.0-94.0); Mean Platelet Volume 10.4 fL (7.4-10.4); Nucleated Red Blood Cells % 0 % (-); Platelet Count 168 10^3/uL (130-400); Red Blood Cell Count 2.98 10^6/uL (4.70-6.10); Red Cell Dist. Width 15.4 % (11.5-14.5); White Blood Cell Count 6.8 10^3/uL (4.8-10.8)
[2023-12-16 07:10] LABS: APTT 45.9 Sec (23.4-35.0)
[2023-12-16 07:35] LABS: ALT (SGPT) 17 U/L (0-50); AST (SGOT) 26 U/L (17-59); Albumin 3.9 g/dl (3.5-5.0); Alkaline Phosphatase 72 U/L (38-126); Blood Urea Nitrogen 52 mg/dl (9-20); Calcium 8.9 mg/dl (8.4-10.2); Carbon Dioxide 27 mmol/L (22-30); Chloride 95 mmol/L (98-107); Estimated Creatinine Clearance 10 ml/min; Glucose 112 mg/dl (70-99); Potassium 4.4 mmol/L (3.5-5.1); Sodium 136 mmol/L (135-145); Total Bilirubin 1.9 mg/dl (0.2-1.3); Total Protein 7.3 g/dl (6.3-8.2); eGFR 6.35
[2023-12-16] MEDS: EMLA CREAM 5 GRAM TOPICAL (07:56)
[2023-12-16] MEDS: RENVELA PO (08:59)
--- NOTE | 2023-12-16 09:30 | W.PN.CD ---
Addendum entered and electronically signed by Wing Kendall MD 12/16/23 13:28:
I saw and examined the patient.
The ASSISTANT PROFESSOR OF BIOLOGY's note was reviewed and I agree with the note.
Comfortable and hemodynamically stable while getting HD. No CP. troponin trending down.
continue current therapy . CABG as scheduled
Original Note:
Today's Communication / Plan
-
-continue hydralazine and monitor BP's
-continue heparin drip
-plan is for surgery tomorrow
Impression / Plan
-
BACKGROUND: 43 [place] male with past medical history of coronary artery disease status post mid LAD stent from 08/2022 and 05/2023, hypertension, diabetes type 2, dyslipidemia, diabetic neuropathy, diabetic retinopathy, osteomyelitis to the
heel, and end-stage renal disease on dialysis presents with presyncope.
Pre syncope, weakness
-No LOC
-Telemetry stable
Abnormal troponin, type unknown:
-echo 12/15/23: Normal biventricular size and systolic function without regional wall motion abnormality. Asymmetric left ventricular hypertrophy. LVPW measuring 1.5 cm. No significant valvular disease. Moderate pulmonary hypertension.
-Non ischemic [place] injury versus CAD versus HTN urgency with ESRD on HD
-Troponin peak 3.120
-continue heparin drip
MVCAD:
-Plans for CABG with Dr. Chacon on , 12/17/2023
HTN Urgency:
-improved today
-continue Coreg. Hydralazine added- can increase as indicated.
ESRD on HD currently- Nephrology following
HLD, continue statin, LDL 41
Type II DM, Hgba1c 6.1%
Anemia of chronic disease
Chronic thrombocytopenia
Osteomyelitis, some non-adherence to amoxicillin due to cost
Former smoker, continued cessation recommended
SUBJECTIVE:
Feels well. Denies any CP or SOB.
Physical Exam
Vital Signs/Labs
Vital Signs
Temp Pulse Resp BP Pulse Ox
97.8 F 72 14 152/82 96
12/16/23 07:15 12/16/23 07:15 12/16/23 07:15 12/16/23 07:15 12/16/23 07:15
12/15/23 12/16/23 12/17/23
06:59 06:59 06:59
Actual Weight 86.999 kg 83.506 kg
12/16/23 05:50
12/16/23 05:50
PT 14.9 Sec (11.4-14.6) H 12/10/23 12:33
INR 1.16 12/10/23 12:33
APTT 45.9 Sec (23.4-35.0) H 12/16/23 05:50
Magnesium 2.5 mg/dl (1.6-2.3) H 12/14/23 13:55
Triglycerides 112 mg/dl (10-149) 12/15/23 05:03
LDL Cholesterol, Calc 41 mg/dl 12/15/23 05:03
VLDL Cholesterol, Calc 22 mg/dl (0-30) 12/15/23 05:03
HDL Cholesterol 40 mg/dl 12/15/23 05:03
LAB Results
12/14/23 12/14/23 12/15/23
16:19 20:04 08:03
Troponin I 1.190 H* 2.070 H* D 3.120 H*
12/15/23 12/15/23
13:55 22:25
Troponin I 3.720 H* 2.950 H*
Physical Exam
Constitutional: No acute distress
EENT: Anicteric
Cardiovascular: Rhythm & rate is regular
Respiratory: Respiratory effort normal and Lungs clear to auscul.
Neuro/Psych: AO x 3
Other: Skin (warm and dry)
Data Reviewed
-
Date of Service: December 16, 2023
EKG: Other (tele SR)
Labs: Labs Reviewed by me
[2023-12-16] MEDS: NEPHROCAP PO (09:35)
[2023-12-16] MEDS: AUGMENTIN 875 MG/125 MG 1 TABLET PO ×2 (09:36→21:00)
[2023-12-16] MEDS: ASPIR LOW (ENTERIC COATED) 81 MG PO (09:36)
[2023-12-16] MEDS: VITAMIN D3 (cholecalciferol) 25 MCG PO (09:36)
[2023-12-16] MEDS: COREG 25 MG PO ×2 (09:41→21:01)
--- NOTE | 2023-12-16 09:46 | WOUNDNOTE ---
BREN RN note: Patient admitted with syncope/collapse and hypoxemia.
See H&P for complete history.
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
Wound Location and type/assessment: Patient admitted with: Chronic L heel callus with crack in center, 0.2cm depth, no drainage, odor or signs of infection. Patient states he follows with a Animal Nutrition Consultant q few weeks and has callus shaved down. +
palpable pedal pulses. Wears sketchers sneakers, not diabetic shoes. Patient had fallen down on knees during collapse at home. Superficial abrasions on knees, clean base. Currently getting dialysis, nurse Debbie confirms that sacrum is intact. R
foot and heel intact, pillow in use under calves.
Appetite: Good.
Pressure redistribution devices in place: On Versa care air, ad janeth. Pillow under calves.
Plan: Silicone foam to L lateral heel. Adhesive foam to protect R heel. Honey gel dressing to knees q other day.
Will confirm orders with hospitalist and updated nurse Lewis. Updated care plan and will follow as needed.
Note to case management of equipment requested for discharge: None.
Recommend follow up with Animal Nutrition Consultant.
--- NOTE | 2023-12-16 09:47 | W.PN.NEPH.HD ---
Assessment
-
Patient seen on dialysis, no complaints
Systolic blood pressure 199
A.m. carvedilol to be provided, of note patient is normally hypertensive pre-HD at outpatient unit per patient
UF 2 kg
For CABG procedure in a.m.
Progress Note - Hemodialysis
-
Date of Service: December 16, 2023
Duration: 30 minutes and 3 hours
Potassium Bath: 2
Calcium Bath: 2.5
Opti-Dialyzer: 160
Ultrafiltration: Other (2 kg)
Blood Flow: 400
Dialysate Flow: 600
Heparin: On heparin drip
EPO: 2000
[2023-12-16] MEDS: APRESOLINE PO (09:48)
--- NOTE | 2023-12-16 11:14 | PN.CDI ---
CDI
- -
CDI:
Physician Documentation Request
Admit Date: 12/14/23 16:35
Dear Doctor Oliver,
Patient presented to ED after near syncopal episode. Pt is scheduled for cagb 12/16 . Patient has recently missed his HD.
12/14 cardiology notes 'trop is rising' and refers to the hypertension as 'hypertensive urgency'
12/14 hospitalist note list a diagnosis of 'hypertensive emergency, start standing hydralazine...'
Some of the samples of the recorded Blood pressures:
Selected Entries
12/14/23
11:54 12/14/23
15:00 12/14/23
17:00
Blood pressure 179/101 180/97 179/97
12/14/23
17:37 12/15/23
07:15 12/15/23
11:22
Blood pressure 172/102 199/92 214/102
12/15/23
13:41 12/16/23
09:41
Blood pressure 181/100 199/105
In an attempt to clarify potentially conflicting documentation, please clarify the hypertension:
Hypertensive Urgency - B/P is severely elevated (systolic > or = to 180 or diastolic > or = to 110) but there is no associated organ damage. Symptoms may include: headache, shortness of breath, nosebleeds, severe anxiety. Treatment usually consists
of addition to or adjusting of oral medications and does not generally necessitate hospitalization.
Hypertensive Emergency - B/P is severely elevated (systolic > or = to 180 or diastolic > or = to 110) but can occur at lower levels especially in patients who did not previously have high B/P. There is usually associated organ damage. Symptoms may
include: memory loss, LOC, CVA, FL, angina, renal failure, pulmonary edema. Generally requires more aggressive treatment and a hospitalization.
Other (please specify)
Use of terms such as suspected, likely, concern for, or probable (associated with a specific diagnosis that is being evaluated, monitored, or treated as if it exists) are acceptable and can be coded in the inpatient setting, when documented at the
time of discharge.
Thank you,
Merced Rodriguez RN, BSN
CDI Specialist
tiger text
Please use your independent medical judgment in providing your response.
[2023-12-16] MEDS: RETACRIT 10000 UNITS IV (11:25)
--- NOTE | 2023-12-16 11:27 | W.PN.HOSP.TC ---
Today's Communication/Plan
-
monitor vitals
see plan
another HD today
plan for CABG tomorrow
monitor hgb
Assessment / Plan
Assessment / Plan
Acute near syncope
Abrasions bilateral knees
-orthostatics
-PT/OT/case management
CXR: No acute disease of the chest. Mild cardiomegaly
#Prolonged QTc
-Hold prolonged QTc agents
-Cardiology following- follows at [facility]
-trop uptrending; unknown type. denies chest pain. Could be CAD or nonischemic myocardial injury or hypertensive urgency with underlying ESRD on hemodialysis
echo noted
#CAD/cardiac stents
-Patient due for CABG by Dr. Chacon 12/16
-Continue carvedilol, aspirin, statin
hold prasugrel per cards and CT surgery
cardiothoracic surgery following; plan for CABG 12/16
# Acute hyperkalemia secondary to missed dialysis
-Follow BMP
#Chronic osteomyelitis left heel
-Is on chronic Augmentin has not taken the last week and a half due to cost we will resume
-Patient follows with associate editor at [place] was due for debridement but needed cardiac clearance first
-wound care for left heel open wound
#Hypertensive urgency
cw standing hydralazine
-Continue carvedilol 25 mg p.o. twice daily with hold parameters, losartan 100 mg daily
#ESRD on dialysis Thursday
Missed dialysis at [facility]
nephro following
-Continue sevelamer 800 mg 3 times daily
another HD session 12/15
#Anemia chronic disease 2/2 CKD
monitor
#Chronic thrombocytopenia
monitor
#DM2-controlled
check A1c 6.1
#HLD
-Continue statin
DVT prophylaxis
Subcu heparin
Full code
General: No Apparent Distress and Obese
HEENT: PERRLA
Respiratory: Clear to Auscultation and Rales; Negative Wheezes
Cardiac: Regular Rhythm and S1/S2
GI: Soft and Nontender
Musculoskeletal: No Edema
Skin: Warm and Dry; Negative Rash
Neuro: AO x 3
Psych: Calm
Anticipated Discharge: > 48 hours
Subjective/Interval History
-
Date of Service: December 16, 2023
denies pain
Objective Data
-
Labs:
Laboratory Results
12/16/23 12/16/23
05:50 13:45
WBC 6.8
Hgb 9.0 L
Hct 26.7 L
Plt Count 168 D
APTT 45.9 H Pending
Sodium 136
Potassium 4.4
Chloride 95 L
Carbon Dioxide 27
BUN 52 H
Creatinine 9.7 H*
Glucose 112 H
Calcium 8.9
Total Bilirubin 1.9 H
AST 26
ALT 17
Alkaline Phosphatase 72
Vital Signs:
Vital Signs
Temp Pulse Resp BP Pulse Ox
97.8 F 72 14 199/105 96
12/16/23 07:15 12/16/23 07:15 12/16/23 07:15 12/16/23 09:41 12/16/23 07:15
I&O
12/15/23 12/16/23 12/17/23
06:59 06:59 06:59
Intake Total 520 / 520 590 / 590
Balance 520 / 520 590 / 590
[2023-12-16] MEDS: HEPARIN 25000 UNITS/250 ML IV (13:54)
[2023-12-16] MEDS: RENVELA 800 MG PO ×2 (13:56→16:56)
[2023-12-16 15:05] LABS: APTT 51.5 Sec (23.4-35.0)
[2023-12-16] MEDS: APRESOLINE 25 MG PO ×2 (16:56→23:27)
[2023-12-16] MEDS: LIPITOR 40 MG PO (17:00)
--- NOTE | 2023-12-16 19:30 | PTCARENOTE ---
Patient ordered tx to IVU level of care, report called and given to Dusty KAUR. Patient and all belongings transferred via wheelchair to room 2263.
[2023-12-16] MEDS: MELATONIN 3 MG PO (23:26)
[2023-12-17] VITALS (19 sets, daily range): BP systolic 80–162; BP diastolic 52–82; BMI 25.6
[2023-12-17 00:33] LABS: Glucose - Point of Care 174 mg/dl (70-99)
--- NOTE | 2023-12-17 00:55 | PTCARENOTE ---
Assumed care of patient at 1930. Patient transferred from to CVICU for preop prep for CABG in AM. Patient is AOx4, follows commands appropriately, assistx1 in room. Lung sounds are clear and equal bilaterally patient is on RA with saO2 at 97%.
Heart sounds have a regular rate and rhythm. Patient has normal palpable pulses and no edema is noted. Patient has active BS throughout all four quadrants and voids without difficulty, but reports oliguria 2/2 HD. Patient has bilateral knee
abrasions with dressings that is CDI. A L heel diabetic wound reportedly with OM that has a dressing that is CDI. A R AC 18G PIV through which patient is receiving heparin gtt. Education provided to patient regarding preop procedures to which they
verbalized understanding. Patient is stable.
[2023-12-17 04:20] LABS: % Basophils 0.7 % (0-2); % Immature Granulocytes 0.3 % (0-0.5); % Lymphocytes 21.2 % (20.5-51.1); % Monocytes 12.6 % (1.7-9.3); % Neutrophils 60.2 % (42.2-75.2); Absolute Basophils 0.1 10^3/uL (0-0.2); Absolute Eosinophils 0.4 10^3/uL (0-0.7); Absolute Lymphocytes 1.6 10^3/uL (1.2-3.4); Absolute Neutrophils 4.5 10^3/uL (1.4-6.5); Hematocrit 26.4 % (39.0-52.0); Hemoglobin 8.9 g/dL (13.0-18.0); Mean Corp Hgb Conc. 33.7 g/dL (33.0-37.0); Mean Corpuscular Hgb 30.2 pg (27.0-31.0); Mean Corpuscular Volume 89.5 fL (80.0-94.0); Mean Platelet Volume 9.4 fL (7.4-10.4); Nucleated Red Blood Cells % 0.3 % (-); Platelet Count 176 10^3/uL (130-400); Red Blood Cell Count 2.95 10^6/uL (4.70-6.10); Red Cell Dist. Width 15.6 % (11.5-14.5); White Blood Cell Count 7.5 10^3/uL (4.8-10.8)
[2023-12-17 04:43] LABS: APTT 67.2 Sec (23.4-35.0)
[2023-12-17 04:58] LABS: ALT (SGPT) 17 U/L (0-50); AST (SGOT) 26 U/L (17-59); Albumin 3.8 g/dl (3.5-5.0); Alkaline Phosphatase 63 U/L (38-126); Blood Urea Nitrogen 31 mg/dl (9-20); Calcium 8.8 mg/dl (8.4-10.2); Carbon Dioxide 29 mmol/L (22-30); Chloride 96 mmol/L (98-107); Estimated Creatinine Clearance 13 ml/min; Glucose 123 mg/dl (70-99); Potassium 4.1 mmol/L (3.5-5.1); Sodium 137 mmol/L (135-145); Total Protein 7.4 g/dl (6.3-8.2); eGFR 8.78
[2023-12-17] MEDS: MAGNESIUM OXIDE 500 MG PO (05:32)
[2023-12-17] MEDS: LOPRESSOR 25 MG PO (05:32)
[2023-12-17] MEDS: PROTONIX 40 MG PO (05:33)
[2023-12-17] MEDS: BACTROBAN 2% OINTMENT 1 APPLIC NASAL ×2 (05:33→21:10)
--- NOTE | 2023-12-17 05:59 | W.PN.UPDATE ---
Update Note
Progress Note Update
43yr Male scheduled for cabg today with Dr Chacon.
received HD yesterday as planned.
vital signs & labs appropriate
Vital Signs / Labs
-
Vital Signs and Labs:
Temp Pulse Resp BP Pulse Ox
98.4 F 71 18 162/82 97
12/16/23 23:00 12/17/23 05:32 12/16/23 19:54 12/17/23 05:32 12/16/23 23:00
12/17/23 04:11
12/17/23 04:11
12/16/23 12/16/23 12/16/23
05:50 09:56 11:31
RBC 2.98 L
Hgb 9.0 L
Hct 26.7 L
RDW 15.4 H
Absolute Monos (auto) 0.7 H
Monocytes % 10.1 H
APTT 45.9 H
Chloride 95 L
BUN 52 H
Creatinine 9.7 H*
Glucose 112 H
Total Bilirubin 1.9 H
POC Glucose
Crossmatch IS Only See Detail See Detail
12/16/23 12/16/23 12/17/23
14:44 21:17 00:31
RBC
Hgb
Hct
RDW
Absolute Monos (auto)
Monocytes %
APTT 51.5 H 58.0 H
Chloride
BUN
Creatinine
Glucose
Total Bilirubin
POC Glucose 174 H
Crossmatch IS Only
12/17/23
04:11
RBC 2.95 L
Hgb 8.9 L
Hct 26.4 L
RDW 15.6 H
Absolute Monos (auto) 1.0 H
Monocytes % 12.6 H
APTT 67.2 H
Chloride 96 L
BUN 31 H
Creatinine 7.4 H*
Glucose 123 H
Total Bilirubin 2.0 H
POC Glucose
Crossmatch IS Only
--- NOTE | 2023-12-17 07:25 | PTCARENOTE ---
Patient stable overnight. VSS. NPO PMN. CHG bathsx2 and CHG wipes for prep. Linens changed. Education provided. AM labs obtained. Heparin gtt discontinued at approx 0630. Patient transferred to CVOR at approx 0635 for surgery.
[2023-12-17 07:28] LABS: Urine Albumin 3+ (Neg - Trace); Urine Bilirubin Negative (Negative); Urine Character Clear (Clear); Urine Color Yellow; Urine Glucose Trace (Negative); Urine Ketone Negative (Negative); Urine Leukocyte Trace (Negative); Urine Nitrite Negative (Negative); Urine Occult Blood 1+ (Negative); Urine Specific Gravity 1.005 (<1.030); Urine Urobilinogen Negative (Neg - 1+)
[2023-12-17 07:40] LABS: ACT+ - POC 104 Seconds (82-134)
[2023-12-17 07:44] LABS: B.E. - POC 3.2 mmol/L; Glucose - POC 134 mg/dl (65-99); HCO3 - POC 27 mmol/L (21-29); Hematocrit - POC 28 % PCV (42-52); Hemodilution- POC No; Hemoglobin Calculated - POC 9.4; Ionized Calcium - POC 1.14 mmol/L (1.12-1.27); O2 Saturation %Calculated-POC 98.6 5 (92-96); PCO2 - POC 34 mmHg (35-45); PO2 - POC 108 mmHg (80-100); POC Comment BASELINE; Sodium - POC 137 mmol/L (135-145); pH - POC 7.49 (7.35-7.45)
[2023-12-17 07:57] LABS: Urine Urothelial Cell 0-2 /LPF (FEW)
[2023-12-17 08:01] LABS: Urine Amorphous Seen; Urine Bacteria Few (Negative)
--- NOTE | 2023-12-17 08:11 | CM ---
Reviewed chart. Mr. Parr is in the operating room today. Prior to admission he resides with his spouse and two daughters in an apartment with ten steps to enter. Prior to admission he was independent with ambulation and adls. He does not have any
DME in the home. He goes to outpatient Dialysis [facility] - at 10:45 a.m. Medical work-up in progress. The discharge plan is to return home with his spouse, outpatient dialysis at [facility] and a home visit by the
Cardiothoracic Transitional Care Nurse when medically stable.
[2023-12-17 09:28] LABS: ACT+ - POC 513 Seconds (82-134)
[2023-12-17 10:01] LABS: B.E. - POC 9.1 mmol/L; Glucose - POC 111 mg/dl (65-99); HCO3 - POC 32 mmol/L (21-29); Hematocrit - POC 23 % PCV (42-52); Hemodilution- POC Yes; Hemoglobin Calculated - POC 7.7; Ionized Calcium - POC 1.03 mmol/L (1.12-1.27); O2 Saturation %Calculated-POC 99.8 5 (92-96); PCO2 - POC 37 mmHg (35-45); PO2 - POC 210 mmHg (80-100); POC Comment CPB; Potassium - POC 4.3 mmol/L (3.6-5.0); Sodium - POC 138 mmol/L (135-145); pH - POC 7.55 (7.35-7.45)
[2023-12-17 10:03] LABS: ACT+ - POC 539 Seconds (82-134)
--- NOTE | 2023-12-17 10:14 | W.PN.UPDATE ---
Update Note
Progress Note Update
Patient underwent CABG. Patient is now on CT surgery service. Will sign off. Please call if any questions.
[2023-12-17 10:32] LABS: Glucose - POC 93 mg/dl (65-99); HCO3 - POC 30 mmol/L (21-29); Hematocrit - POC 27 % PCV (42-52); Hemodilution- POC Yes; Hemoglobin Calculated - POC 9.1; Ionized Calcium - POC 1.11 mmol/L (1.12-1.27); O2 Saturation %Calculated-POC 99.9 5 (92-96); PCO2 - POC 44 mmHg (35-45); PO2 - POC 275 mmHg (80-100); POC Comment CPB; Potassium - POC 3.8 mmol/L (3.6-5.0); Sodium - POC 138 mmol/L (135-145); pH - POC 7.44 (7.35-7.45)
[2023-12-17 10:34] LABS: ACT+ - POC 509 Seconds (82-134)
--- NOTE | 2023-12-17 10:57 | CON.INTV ---
Consultation
Consultation Request
Date/Time Consultation Requested: 12-17-23
Date/Time Consultation Performed: 12-17-23
Requesting Provider: Dr Chacon
Performing Provider: Dr Morrison
Reason for Consultation: S/p CABG MV
Medical History
-
Chief Complaint: s/p CABG MV
History of Present Illness:
Mr Lukasz MCARTHUR is a 43/M adm 12-13 (first adm) for presyncopal event on DOA
Known h/o LAD stenting August and May 2023, MVD on [facility] October 2023, followed by cards and CTSx, already scheduled for CABG 12-16 (hold prasugrel as outpatient).
On DOA, while walking his dog felt weak and lightheaded and fell to his knees but was able to quickly stand up and returned home, denied CP/palpitation/SANTANA, missed schedule HD, rec to come to ER. On adm, hemodyn and resp bardales stable, troponins
trended up.
Seen by Cards and CTSx, prepared for CABG
Seen at CVICU after surgery, well synchronized to SIMV, sedated
Past Medical History
Past Medical History: Other (see A&P for PMH/PSH)
Social History
Tobacco: Former Smoker
Alcohol: None
Drug: Marijuana (medical)
Personal:
Living: With Family
Employment: Disabled
Family History
Family History: Reviewed & Not Pertinent
Allergies / Home Medications
Allergies
Allergy/AdvReac Type Severity Reaction Status Date / Time
vancomycin Allergy chills Verified 12/14/23 11:57
Home Medications
�Medication �Instructions �Recorded �Confirmed �Last Taken �Type
amoxicillin 875 mg-potassium 1 tab PO BID Infection 12/08/23 12/08/23 Unknown History
clavulanate 125 mg tablet
atorvastatin 40 mg tablet 40 mg PO DAILY High Cholesterol 12/08/23 12/08/23 Unknown History
carvedilol 25 mg tablet 25 mg PO BID Blood Pressure 12/08/23 12/08/23 Unknown History
cholecalciferol (vitamin D3) 25 25 mcg PO DAILY Supplement 12/08/23 12/08/23 Unknown History
mcg (1,000 unit) tablet (Vitamin
D3)
losartan 100 mg tablet 100 mg PO DAILY Blood Pressure 12/08/23 12/08/23 Unknown History
prasugrel 10 mg tablet 10 mg PO DAILY Blood Clot 12/08/23 12/08/23 Unknown History
Prevention/Tx
sevelamer carbonate 800 mg tablet 800 mg PO TID REDUCE PHOSPHATE 12/08/23 12/08/23 Unknown History
vitamin B complex-vitamin C-folic 1 tab PO DAILY Supplement 12/08/23 12/08/23 Unknown History
acid 0.8 mg tablet (Dialyvite 800)
Medical Marijuana 2 tab PO DAILYPRN PRN mild pain 12/14/23 12/14/23 Unknown History
aspirin 81 mg tablet,delayed 81 mg PO DAILY Blood Clot 12/14/23 12/14/23 12/13/23 History
release Prevention/Tx
lidocaine-prilocaine 2.5 %-2.5 % 1 applic topical DAILYPRN PRN 12/14/23 12/14/23 12/14/23 History
topical cream before hemodialysis
Review of Systems
-
Unable to Obtain full review of systems at this time due to: Patient Intubation
Vitals / Labs / Diagnostic Testing
Vital Signs
Temp Pulse Resp BP Pulse Ox
98.4 F 71 18 162/82 97
12/16/23 23:00 12/17/23 05:32 12/16/23 19:54 12/17/23 05:32 12/16/23 23:00
Lab Data
12/17/23 04:11
12/17/23 04:11
Laboratory Results
12/16/23 12/16/23 12/16/23
14:44 20:54 21:17
APTT 51.5 H Cancelled 58.0 H
12/17/23
04:11
APTT 67.2 H
Microbiology
12/10/23 12:33 Nose MRSA Screen - Final
Staph aureus MRSA
Diagnostic Testing:
Physical Exam
-
HEENT: Normocephalic and Moist Mucous Membranes
Cardiovascular: Regular Rhythm and Peripheral Edema (n)
Respiratory: Clear and Non-Labored Respirations
GI: Soft and Non Distended
Neurology: Other (sedated)
Skin: Warm
General: Respiratory Distress (n)
Assessment
-
Assessment:
Mr Lukasz MCARTHUR is a 43/M adm 12-13 (first adm) with presyncopal event. Known h/o LAD stenting August and May 2023, MVD on C October 2023, followed by cards and CTSx, already scheduled for CABG 12-16 (hold prasugrel as outpatient). On DOA, while
walking his dog felt weak and lightheaded and fell to his knees but was able to quickly stand up and returned home, denied CP/palpitation/SANTANA, missed schedule HD, rec to come to ER. On adm, hemody and resp bardales stable, troponins trended up. Seen by
Cards and CTSx, prepared for CABG
Impression:
Multivessel CAD
S/p CABG
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
CAD as mentioned above
HTN
HLD
NIDDM
Chronic L heel OM, on chronic augmentin
ESRD on HD MWF
Former Smoker
Plan:
Ventilator settings reviewed
SIMV: 14-550-5-0.4 (POx 97%)
FiO2 will be weaned
Minute ventilation will be adjusted
Arterial blood gases will be monitored
Spontaneous breathing trial will be attempted with hopeful extubation after anesthesia/sedation wear off
Pulmonary artery catheter parameters will be followed
Pressors/antihypertensive/inotropes/diuretics will be provided as needed
Monitor chest tube output
Monitor hemoglobin
Monitor platelet count and coags
Transfuse blood product if needed
CT surgery following chest tubes
Monitor blood sugar
Insulin drip per protocol
Former smoker:
Not on home O2 or BDs
No h/o chronic resp symptoms
Pre CABG CT s/c - with trace mosaic pattern and small R ant basilar inflammatory change: no need for further work up at this juncture. No indication for atbs or systemic CS for pulm reasons
Aspiration precautions
VAP prevention protocol
DVT prophylaxis
Early nutrition
Early mobilization
Critical care time: 35 min
[2023-12-17 11:00] LABS: B.E. - POC 4.5 mmol/L; Glucose - POC 101 mg/dl (65-99); HCO3 - POC 29 mmol/L (21-29); Hematocrit - POC 27 % PCV (42-52); Hemodilution- POC Yes; Hemoglobin Calculated - POC 9.2; Ionized Calcium - POC 1.08 mmol/L (1.12-1.27); O2 Saturation %Calculated-POC 99.9 5 (92-96); PCO2 - POC 41 mmHg (35-45); PO2 - POC 264 mmHg (80-100); POC Comment WARM; Potassium - POC 4.5 mmol/L (3.6-5.0); Sodium - POC 138 mmol/L (135-145); pH - POC 7.45 (7.35-7.45)
[2023-12-17 11:05] LABS: ACT+ - POC 543 Seconds (82-134)
[2023-12-17 11:26] LABS: ACT+ - POC 494 Seconds (82-134)
[2023-12-17 11:41] LABS: ACT+ - POC 109 Seconds (82-134)
[2023-12-17 11:47] LABS: B.E. - POC 2.1 mmol/L; Glucose - POC 120 mg/dl (65-99); HCO3 - POC 27 mmol/L (21-29); Hematocrit - POC 24 % PCV (42-52); Hemodilution- POC Yes; Hemoglobin Calculated - POC 8.1; Ionized Calcium - POC 1.32 mmol/L (1.12-1.27); PCO2 - POC 41 mmHg (35-45); PO2 - POC 396 mmHg (80-100); POC Comment POST; Potassium - POC 3.7 mmol/L (3.6-5.0); Sodium - POC 140 mmol/L (135-145); pH - POC 7.43 (7.35-7.45)
[2023-12-17] MEDS: COREG PO (12:34)
[2023-12-17] MEDS: AUGMENTIN 875 MG/125 MG PO (12:34)
[2023-12-17] MEDS: APRESOLINE PO (12:34)
[2023-12-17] MEDS: RENVELA PO ×2 (12:34)
[2023-12-17] MEDS: ASPIR LOW (ENTERIC COATED) PO (12:34)
[2023-12-17] MEDS: NEPHROCAP PO (12:35)
[2023-12-17] MEDS: VITAMIN D3 (cholecalciferol) PO (12:35)
--- NOTE | 2023-12-17 12:36 | W.CVOR.SURPR ---
CVOR Surgeon Immed Pre Op
-
I have examined this patient prior to performance of the scheduled procedure.
The patient's condition is unchanged from the time of the dictated/written History and
Physical and the patient is able to undergo the scheduled procedure.
--- NOTE | 2023-12-17 12:36 | W.IMMPOSTOP ---
Addendum entered and electronically signed by Sharan Chacon MD 12/17/23 14:39:
[id number]
Original Note:
Surgical Immed Post Op Note
-
CARDIAC SURGERY OPERATIVE NOTE:
Preoperative Dx:
MVCAD
Postoperative Dx:
Same
Procedures:
1) Median sternotomy
2) Takedown of JASON
3) Endoscopic harvest/prep of LLE GSV
4) CABG x 3 (JASON to LAD, GSV to D, GSV to RPDA)
Surgeon:
Sharan Chacon M.D.
Assistants:
Sherry OchoaACatie-Medina; first grade teacher
Ren Chris PCatieA.-CCatie; endoscopic harvest/prep of LLE GSV
Anesthesia:
Hardik Almendarez M.D. and Amelia C.R.N.A.
Perfusion:
Amanda Burrell, C.C.P.; XC: 69min, CPB: 102min
Transfusion:
1U PRBC
Findings:
1) JASON was healthy appearing artery w/ brisk blood flow; ELD 2.5mm
2) GSV was healthy appearing conduit w/ ELD 3.5mm
3) LAD was visible on the epicardial surface, dense scattered calcifications, ELD 2.75mm
4) D was visible on the epicardial suface, very dense calcifications necessitating distal anastomosis, ELD 1.25mm
5) Prior OM stent was visible, upper branch of OM was evaluated, but was a profoundly small branch not amenable to bypass
6) PDA was visible on the epicardial surface, dense scattered calcificaitons, ELD 2.75mm
7) Excellent flow through JASON and GSV to PDA
8) Marginal flow through GSV to D [expected given small coronary target w/ limited runoff]
9) Normal biventricular function w/o RWMA
Implants:
CT x 4 (B/L pleural, inferior mediastinal, superior mediastinal)
Sternal wires x 7
Sternal 'X' plate w/ 8 - 16mm screws and sternal 'square' plate w/ 4 - 12mm screws
Complications:
None
Condition:
Stable/guarded to CVICU
70 sinus w/ isoelectric STs; 125/75; 33/19; CVP 13; CO/CI: 4.6/2.3
GTTS: levophed 4, precedex 0.5, insulin 0.5
[2023-12-17 13:05] LABS: Glucose - Point of Care 128 mg/dl (70-99)
[2023-12-17 13:22] LABS: Hematocrit 24.9 % (39.0-52.0); Hemoglobin 8.3 g/dL (13.0-18.0); Platelet Count 114 10^3/uL (130-400)
[2023-12-17 13:25] LABS: B.E. 2.5 mmol/L; HCO3 25.9 mmol/L (21-28); Ionized Calcium 1.17 mMOL/L (1.15-1.33); O2 Saturation % 98.3 % (94-98); PCO2 34 mmHg (35-48); PO2 166 mmHg (83-108); Potassium 3.9 mMOL/L (3.5-5.1); Sodium 135 mMOL/L (136-145); pH 7.49 (7.35-7.45)
[2023-12-17 13:32] LABS: APTT 33.7 Sec (23.4-35.0); INR 1.52; O2 Therapy vent; PT 18.4 Sec (11.4-14.6)
--- NOTE | 2023-12-17 13:32 | PTCARENOTE ---
assumed care of pt from CVOR into 2263, sinus rhythm on tele, w HR 75 bpm, right radial michael leveled and zeroed, BP 100/55 (70) + peripheral pulses, no edema noted. Lungs diminished, #8 ETT/ 22cm at right lip, pox 100% on SIMV 60%, 16, 550, +5
PEEP. RR decreased to 14 and Fi02 decreased to 40% based on ABG result. Right IJ cordis w swan floated to 45, CO 4.52 CI 2.27 CVP 8 PAP 30/14. CT x4 w minimal amount of drainage, berger draining scant yellow. CPOT 0 RASS -3. Pt did wake up, remained
calm, followed simple commands, fell back asleep. Routine post op labs, ekg and cxr completed.
DRIPS: Precedex 0.5 mcg/kg/hr
Insulin titrated per glycemic protocol
[2023-12-17 14:09] LABS: Blood Urea Nitrogen 30 mg/dl (9-20); Estimated Creatinine Clearance 13 ml/min; Glucose 121 mg/dl (70-99); Magnesium 2.8 mg/dl (1.6-2.3)
[2023-12-17 14:11] LABS: Glucose - Point of Care 141 mg/dl (70-99)
[2023-12-17] MEDS: CALCIUM CHLORIDE 10% SYRINGE 50 MG IV (14:13)
[2023-12-17] MEDS: CALCIUM CHLORIDE 10% SYRINGE 50 ML IV (14:13)
[2023-12-17] MEDS: NSS 500 IV (14:14)
[2023-12-17] MEDS: ANCEF 10 IV ×2 (14:14)
[2023-12-17] MEDS: TYLENOL PO (14:15)
--- NOTE | 2023-12-17 14:53 | PTCARENOTE ---
family at bedside, updated
--- NOTE | 2023-12-17 14:56 | W.PN.CD ---
Addendum entered and electronically signed by Wing Kendall MD 12/17/23 17:42:
I saw and examined the patient.
The SHINGLE WEAVER's note was reviewed and I agree with the note.
Patient is postop. Extubated. Remains on Levophed. In sinus rhythm.
Continue postop care as directed by CT surgery
Wean pressors as per protocol
Original Note:
Today's Communication / Plan
-
Close post-op monitoring and care with weaning of drips and vent per CT surgery/CVICU protocol
Impression / Plan
-
BACKGROUND: 43 South male with past medical history of coronary artery disease status post mid LAD stent from 08/2022 and 05/2023, hypertension, diabetes type 2, dyslipidemia, diabetic neuropathy, diabetic retinopathy, osteomyelitis to the
heel, and end-stage renal disease on dialysis presents with presyncope.
Multivessel coronary artery disease:
-now s/p CABG x 3 (JASON to LAD, GSV to D, GSV to RPDA), Dr. Chacon 12/17/23
-intubated/sedated
-CT's and berger in place
-s/p 1 unit PRBC
-post-op EKG SR with nonspecific ST abnormalities, tele stable in SR
-post-op CXR stable
-intra-op ALIX: Overall LVEF is approximately 55% with no RWMA. Mild concentric left ventricular hypertrophy. Stage II Diastolic dysfunction. Mildly dilated left atrium. All valves appear normal. Aorta is normal size without significant atheroma.
-ASA, statin, BB
Abnormal troponin, type unknown:
-echo 12/15/23: Normal biventricular size and systolic function without regional wall motion abnormality. Asymmetric left ventricular hypertrophy. LVPW measuring 1.5 cm. No significant valvular disease. Moderate pulmonary hypertension.
-Non ischemic ken[place] injury versus CAD versus HTN urgency with ESRD on HD
-Troponin peak 3.120
HTN Urgency:
-improved with med adjustment pre-op
-monitor post-op
ESRD on HD currently- Nephrology following
HLD, continue statin, LDL 41
Type II DM, Hgba1c 6.1%
Anemia of chronic disease
Chronic thrombocytopenia
Osteomyelitis, some non-adherence to amoxicillin due to cost
Former smoker, continued cessation recommended
SUBJECTIVE:
intubated/sedated, appears comfortable
Physical Exam
Vital Signs/Labs
Vital Signs
Temp Pulse Resp BP Pulse Ox
97.9 F 76 14 103/73 100
12/17/23 14:00 12/17/23 14:00 12/17/23 14:00 12/17/23 14:00 12/17/23 14:08
12/16/23 12/17/23 12/18/23
06:59 06:59 06:59
Actual Weight 83.506 kg 80.9 kg
12/17/23 13:04
12/17/23 13:04
PT 18.4 Sec (11.4-14.6) H 12/17/23 13:04
INR 1.52 12/17/23 13:04
APTT 33.7 Sec (23.4-35.0) 12/17/23 13:04
Magnesium 2.8 mg/dl (1.6-2.3) H 12/17/23 13:04
Triglycerides 112 mg/dl (10-149) 12/15/23 05:03
LDL Cholesterol, Calc 41 mg/dl 12/15/23 05:03
VLDL Cholesterol, Calc 22 mg/dl (0-30) 12/15/23 05:03
HDL Cholesterol 40 mg/dl 12/15/23 05:03
LAB Results
12/14/23 12/14/23 12/15/23
16:19 20:04 08:03
Troponin I 1.190 H* 2.070 H* D 3.120 H*
12/15/23 12/15/23
13:55 22:25
Troponin I 3.720 H* 2.950 H*
Physical Exam
Constitutional: No acute distress
Cardiovascular: Rhythm & rate is regular
Respiratory: Other (intubated ventilated)
Neuro/Psych: Other (sedated)
Other: Skin (midsternal incision CDI)
Data Reviewed
-
Date of Service: December 17, 2023
EKG: Tracing Personally Visualized and interpreted (SR with nonspecific ST abnormalities) and Other (tele NSR)
Echo: Other (ALIX as noted)
Labs: Labs Reviewed by me
[2023-12-17 15:00] LABS: Glucose - Point of Care 136 mg/dl (70-99)
[2023-12-17] MEDS: PACERONE PO (15:41)
[2023-12-17] MEDS: NEURONTIN PO (15:41)
[2023-12-17 16:03] LABS: Glucose - Point of Care 133 mg/dl (70-99)
--- NOTE | 2023-12-17 16:15 | PTCARENOTE ---
CPAP labs drawn and sent, CT ADEEL made aware of increasing Levophed requirement.
[2023-12-17 16:28] LABS: B.E. 0.9 mmol/L; HCO3 26.6 mmol/L (21-28); Ionized Calcium 1.35 mMOL/L (1.15-1.33); O2 Saturation % 98.5 % (94-98); PCO2 47 mmHg (35-48); PO2 142 mmHg (83-108); Potassium 4.8 mMOL/L (3.5-5.1); Sodium 137 mMOL/L (136-145); pH 7.36 (7.35-7.45)
[2023-12-17 16:31] LABS: Hematocrit 25.2 % (39.0-52.0); Hemoglobin 8.6 g/dL (13.0-18.0); Platelet Count 161 10^3/uL (130-400)
--- NOTE | 2023-12-17 16:55 | W.PN.NEPH.PH ---
Today's Communication / Plan
-
Dialysis in the morning
Assessment/Plan
-
Assessment:
ESRD on HD (~2 years, via [facility] [facility], [facility])
T2DM
HTN
CAD
osteomyelitis of heel
DLD
anemia
Plan:
- plan for HD tomorrow due to scheduling issues
- s/p CABG today
-Extubated
-Currently hypotensive postoperatively
- plan for ALINA with HD
-
-
Date of Service: December 17, 2023
CC / HPI / ROS
-
Chief Complaint:
End-stage renal disease
History of Present Illness:
End-stage renal disease Thursday
Hemodynamically labile on low-dose pressor
Status post CABG on 12/17/2023
Review of Systems:
Extubated
Postsurgical chest discomfort
Labs
-
Labs:
WBC 7.5 10^3/uL (4.8-10.8) 12/17/23 04:11
RBC 2.95 10^6/uL (4.70-6.10) L 12/17/23 04:11
Hgb 8.6 g/dL (13.0-18.0) L 12/17/23 16:19
Hct 25.2 % (39.0-52.0) L 12/17/23 16:19
Plt Count 161 10^3/uL (130-400) D 12/17/23 16:19
Sodium 137 mmol/L (135-145) 12/17/23 04:11
Potassium 4.1 mmol/L (3.5-5.1) 12/17/23 04:11
Chloride 96 mmol/L (98-107) L 12/17/23 04:11
Carbon Dioxide 29 mmol/L (22-30) 12/17/23 04:11
BUN 30 mg/dl (9-20) H 12/17/23 13:04
Creatinine 7.5 mg/dL (0.7-1.3) H* 12/17/23 13:04
eGFR 8.78 12/17/23 04:11
Glucose 121 mg/dl (70-99) H 12/17/23 13:04
Calcium 8.8 mg/dl (8.4-10.2) 12/17/23 04:11
Phosphorus 4.3 mg/dl (2.5-4.5) 12/14/23 13:55
Albumin 3.8 g/dl (3.5-5.0) 12/17/23 04:11
Physical Exam
-
Vital Signs:
Vital Signs
Temp Pulse Resp BP Pulse Ox
100.6 F H 78 10 84/56 100
12/17/23 16:00 12/17/23 16:15 12/17/23 16:15 12/17/23 16:11 12/17/23 16:15
Cardiovascular:: Regular rate and rhythm
Respiratory:: Bilateral: Coarse
Lung Excursion:: Normal
Abdomen:: Nontender and Soft
Bowel Sounds:: Normal
Extremity Edema:: +1: Bilateral: (trace)
Yeager Catheter: No
Other Findings::
Bilateral chest tube
Awake alert interactive
--- NOTE | 2023-12-17 16:56 | PTCARENOTE ---
pt extubated to 6L NC at 1635. pox 100%. achieved 500 on IS
[2023-12-17 17:19] LABS: Glucose - Point of Care 111 mg/dl (70-99)
[2023-12-17] MEDS: OFIRMEV 100 IV (18:08)
[2023-12-17] MEDS: LOW STRENGTH ASPIRIN 81 MG PO (18:08)
[2023-12-17 19:00] LABS: Glucose - Point of Care 115 mg/dl (70-99)
[2023-12-17] MEDS: DILAUDID 0.25 MG IV (19:54)
[2023-12-17] MEDS: ANCEF 5 IV (20:00)
--- NOTE | 2023-12-17 20:28 | PTCARENOTE ---
Assumed care of patient at 1900. Patient found resting in bed at time of assessment. Patient is AOx4, follows commands appropriately, moves all extremities, c/o pain in back at this time. Lung sounds are diminished throughout, respirations are
shallow, patient is on 4L O2 via NC with saO2 at 100%. Patient has CTx4: R/L pleural to one atrium and medsx2 to one atrium both with red sanguineous drainage. Heart sounds have a regular rate and rhythm, +rub on auscultation, patient has normal
palpable pulses with no apparent edema. Patient is SR on the monitor HR in the 70s. Patient has L FA fistula with +bruit and +thrill a LUE restriction is in effect. Patient has soft nontender abdomen with hypo BS and an indwelling berger catheter in
place with minimal UOP patient receives MWF HD. Patient has sternal incision with aquacell dressing that is CDI, bilateral knee abrasions with honey gel adaptic and dry ABD dressing that is CDI, and L heel diabetic wound that has a foam adhesive
dressing that is CDI. Patient has the following lines: R IJ cordis with swan at 45, R radial Amanda, R AC PIV. Patient has the following gtts: Levo@7, Cordis KVO, VIP KVO, Insulin gtt. Patient received 0.25 dilaudidx1 for pain at 1954. VSS at this
time.
[2023-12-17] MEDS: SENOKOT-S 1 TABLET PO (21:08)
[2023-12-17] MEDS: PACERONE 200 MG PO (21:08)
[2023-12-17] MEDS: NEURONTIN 100 MG PO (21:08)
[2023-12-17] MEDS: AUGMENTIN 875 MG/125 MG 1 TABLET PO (21:08)
[2023-12-17] MEDS: TYLENOL 1000 MG PO (21:09)
[2023-12-17 21:40] LABS: Glucose - Point of Care 115 mg/dl (70-99)
[2023-12-17] MEDS: LEVOPHED 250 IV (22:39)
[2023-12-17] MEDS: ROXICODONE 5 MG PO (23:04)
[2023-12-17 23:11] LABS: Glucose - Point of Care 112 mg/dl (70-99)
--- NOTE | 2023-12-17 23:20 | PTCARENOTE ---
Patient with 28 beats Vtach while sleeping. Patient asymptomatic at the time. Patient resumed SR without intervention. CT INSOLE COVERER notified. Received orders to obtain BMP and Mag. Awaiting results.
[2023-12-17 23:50] LABS: Magnesium 2.7 mg/dl (1.6-2.3)
[2023-12-17 23:59] LABS: Blood Urea Nitrogen 30 mg/dl (9-20); Calcium 7.6 mg/dl (8.4-10.2); Carbon Dioxide 20 mmol/L (22-30); Chloride 108 mmol/L (98-107); Estimated Creatinine Clearance 14 ml/min; Glucose 93 mg/dl (70-99); Potassium 4.2 mmol/L (3.5-5.1); Sodium 137 mmol/L (135-145); eGFR 9.07
[2023-12-18] VITALS (39 sets, daily range): BP systolic 83–139; BP diastolic 47–71; BMI 26.6
--- NOTE | 2023-12-18 | PTCARENOTE ---
Patient reassessed. Mary 5 for pain. Remains in SR on the monitor. Lab work resulted no repletion required. Patient with frequent productive coughs requiring suction with thick clear secretion. Patient appears to vagal during these coughing episodes
CT RAISIN SEPARATOR OPERATOR aware. Levo increased to 8 mcg given low BP and MAP during most recent coughing episode. O2 weaned to 2L saO2 remains at 100%. This RN will continue to monitor.
--- NOTE | 2023-12-18 00:03 | W.PN.CT ---
Today's Communication / Plan
-
Extubated = 5pm on 12/16�
ERSD= HD (MWF) = plan for HD today�
Hypotension = requiring Levophed @ 10, limit fluid intake�
Output CT output MS* 2 = 190 PL*2 = 110 UOP = 35�
Cont. Current meds = (Amiodarone, ASA, Lipitor, Plavix)�
Chronic osteomyelitis left heel�= Amoxicillin �
DM =�insulin drip�
CO = 4.35, CI =2.19. [place] Dc
Maintain michael, cordis, and chest tubes�
Encourage IS and OOB�
Assessment / Plan
-
s/p CABG x 3 (JASON to LAD, GSV to D, GSV to RPDA) POD # 1�
PMH:�
NTEMI/CHF 06/20 �
CAD�
s/p PCI 23�
ERSD on HD (MWF)�
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
L 1 and 2nd toe amputation�
HTN�
HLD�
Cat ext W/IOL�
Subjective
Procedure
s/p CABG x 3 (JASON to LAD, GSV to D, GSV to RPDA) POD # 1�
-
Date of Service: December 18, 2023
Objective Data
-
PT 18.4 Sec (11.4-14.6) H 12/17/23 13:04
INR 1.52 12/17/23 13:04
APTT 33.7 Sec (23.4-35.0) 12/17/23 13:04
Vital Signs
Vital Signs
Temp Pulse Resp BP Pulse Ox
98.5 F 68 24 86/60 100
12/17/23 23:00 12/17/23 23:00 12/17/23 23:00 12/17/23 23:00 12/17/23 23:00
CT Intake/Output/Weight
12/17/23 12/17/23 12/18/23
06:59 18:59 06:59
Intake Total 364.9 / 587.1 222.2 / 587.1
Output Total 200 / 260 60 / 260
Balance 164.9 / 327.1 162.2 / 327.1
SaO2: 100
Physical Exam
-
General: Awake and Oriented
Cardiovascular: Regular rate & rhythm
Respiratory: Clear and Equal
Sternum: Stable
Incision: Clean, Dry and Intact
Extremities: Edema +1
[2023-12-18 00:16] LABS: Glucose - Point of Care 95 mg/dl (70-99)
[2023-12-18] MEDS: FLEXERIL 5 MG PO ×2 (00:16→20:58)
[2023-12-18 01:16] LABS: Glucose - Point of Care 95 mg/dl (70-99)
[2023-12-18 02:08] LABS: Glucose - Point of Care 93 mg/dl (70-99)
[2023-12-18 03:20] LABS: Hematocrit 25.8 % (39.0-52.0); Hemoglobin 8.4 g/dL (13.0-18.0); Mean Corp Hgb Conc. 32.6 g/dL (33.0-37.0); Mean Corpuscular Hgb 30.5 pg (27.0-31.0); Mean Corpuscular Volume 93.8 fL (80.0-94.0); Mean Platelet Volume 9.9 fL (7.4-10.4); Platelet Count 172 10^3/uL (130-400); Red Blood Cell Count 2.75 10^6/uL (4.70-6.10); Red Cell Dist. Width 15.9 % (11.5-14.5); White Blood Cell Count 13.7 10^3/uL (4.8-10.8)
[2023-12-18] MEDS: ANCEF 5 IV ×2 (03:37→12:25)
[2023-12-18 03:56] LABS: Blood Urea Nitrogen 31 mg/dl (9-20); Calcium 7.8 mg/dl (8.4-10.2); Carbon Dioxide 19 mmol/L (22-30); Chloride 107 mmol/L (98-107); Estimated Creatinine Clearance 13 ml/min; Glucose 96 mg/dl (70-99); Magnesium 2.4 mg/dl (1.6-2.3); Potassium 4.3 mmol/L (3.5-5.1); Sodium 138 mmol/L (135-145); eGFR 8.24
--- NOTE | 2023-12-18 04:00 | PTCARENOTE ---
Pt transferred to this RN from Dusty Gray RN; Pt resting comfortably in bed; VSS, NSR on monitor; Heart sounds audible, radial and DP pulses palpable; lung sounds diminished at bases, spo2 100% on 2 LNC, X2MS and rught/left pleural CT to -20 wall
suction, no air leaks, no tidaling, no crepitus; abdomen soft non tender, hypoactive BSx4 quadrants; pt is oliguric and on hemodialyses; LFA fistula + bruit and thrill, right IJ cordis, swan, right A-line and PIV; insulin and levophed gtt infusing;
swan was d/c and removed; pt to remain in be until HD; pt's weight was delayed until after HD; 5 Mary given for pain, see MAR; call joiner within reach; will continue to monitor.
[2023-12-18 04:15] LABS: Glucose - Point of Care 111 mg/dl (70-99)
[2023-12-18] MEDS: ROXICODONE 5 MG PO (04:36)
[2023-12-18] MEDS: TYLENOL 1000 MG PO ×3 (05:15→20:58)
[2023-12-18] MEDS: LEVOPHED 250 IV (05:30)
[2023-12-18 06:14] LABS: Glucose - Point of Care 100 mg/dl (70-99)
--- NOTE | 2023-12-18 07:00 | PTCARENOTE ---
Pt became hypotensive. CVPA at bedside. titrated levo as needed. pt now normotensive, VSS, on 6mcg of Levo. will continue to monitor.
[2023-12-18 08:02] LABS: Glucose - Point of Care 91 mg/dl (70-99)
--- NOTE | 2023-12-18 08:02 | W.PN.INTV ---
Documented by User: Amber Kelly, Resident, 12/18/23 11:06
Today's Communication / Plan
Recommendations
HD today
Assessment
-
Assessment:
Mr Lukasz MCARTHUR is a 43/M adm 12-13 (first adm) with presyncopal event. Known h/o LAD stenting August and May 2023, MVD on C October 2023, followed by cards and CTSx, already scheduled for CABG 12-16 (hold prasugrel as outpatient). On DOA, while
walking his dog felt weak and lightheaded and fell to his knees but was able to quickly stand up and returned home, denied CP/palpitation/SANTANA, missed schedule HD, rec to come to ER. On adm, hemody and resp bardales stable, troponins trended up. Seen by
Cards and CTSx, prepared for CABG
Impression:
Multivessel CAD
S/p CABG
Conditions PUBLIC SPEAKING INSTRUCTOR:
CAD as mentioned above
HTN
HLD
NIDDM
Chronic L heel OM, on chronic augmentin
ESRD on HD MWF
Former Smoker
Plan:
Ventilator settings reviewed
SIMV: [id number] (POx 97%)
FiO2 will be weaned
Minute ventilation will be adjusted
Arterial blood gases will be monitored
Spontaneous breathing trial will be attempted with hopeful extubation after anesthesia/sedation wear off
Pulmonary artery catheter parameters will be followed
Pressors/antihypertensive/inotropes/diuretics will be provided as needed
Monitor chest tube output
Monitor hemoglobin
Monitor platelet count and coags
Transfuse blood product if needed
CT surgery following chest tubes
Monitor blood sugar
Insulin drip per protocol
Former smoker:
Not on home O2 or BDs
No h/o chronic resp symptoms
Pre CABG CT s/c 12-15 with trace mosaic pattern and small R ant basilar inflammatory change: no need for further work up at this juncture. No indication for atbs or systemic CS for pulm reasons
Aspiration precautions
VAP prevention protocol
DVT prophylaxis
Early nutrition
Early mobilization
Critical care time: 35 min
Subjective Dataa
Subjective Data
Date of Service:
Date of Service: December 18, 2023
Chief Complaint: Shearer Helper Follow Up
Subjective:
Patient seen at bedside.
Hypotensive episode earlier in the morning
Review of Systems
General: Other (Negative unless otherwise stated)
Objective Data
Data Reviewed
Vital Signs / I&O / Oxygen:
Vital Signs
Temp Pulse Resp BP Pulse Ox
98.1 F 67 18 109/71 100
12/18/23 07:57 12/18/23 07:30 12/18/23 07:57 12/18/23 07:30 12/18/23 07:57
Intake and Output
12/17/23 12/18/23 12/19/23
06:59 06:59 06:59
Intake Total 480 / 480 984.8 / 984.8 33.8 / 33.8
Output Total 370 / 370
Balance 480 / 480 614.8 / 614.8 13.8 / 13.8
SaO2 [SIMV] 100
SaO2 100
Nasal Cannula flow liters per 4
minute
Labs/Micro/Reports
Lab Data
12/18/23 03:10
12/18/23 03:10
Laboratory Results
12/17/23 12/17/23
13:04 16:19
PT 18.4 H
INR 1.52
APTT 33.7
pH 7.49 H 7.36
pCO2 34 L 47
pO2 166 H 142 H
HCO3 25.9 26.6
O2 Delivery Level vent
Microbiology
12/10/23 12:33 Nose MRSA Screen - Final
Staph aureus MRSA

Documented by User: Niko Morrison MD 12/18/23 11:11
Today's Communication / Plan
Recommendations
HD today
IS
O2 protocol
Chest tube mgmt, R pneumothorax mgmt by CTSx
Reconsult prn
Assessment
-
Assessment:
Mr Lukasz MCARTHUR is a 43/M adm 12-13 (first adm) with presyncopal event. Known h/o LAD stenting August and May 2023, MVD on [facility] October 2023, followed by cards and CTSx, already scheduled for CABG 12-16 (hold prasugrel as outpatient). On DOA, while
walking his dog felt weak and lightheaded and fell to his knees but was able to quickly stand up and returned home, denied CP/palpitation/SANTANA, missed schedule HD, rec to come to ER. On adm, hemody and resp bardales stable, troponins trended up. Seen by
Cards and CTSx, prepared for CABG
Impression:
Multivessel CAD
S/p CABG 12-16
Conditions PUBLIC SPEAKING INSTRUCTOR:
CAD as mentioned above
HTN
HLD
NIDDM
Chronic L heel OM, on chronic augmentin
ESRD on HD MWF
Former Smoker
Plan:
Extubated post surgery with no issue
CXR today with no gross infiltrates. RIJ SG, chest/med tubes in place, interim small R pntx
Pulmonary artery catheter parameters will be followed
Pressors/antihypertensive/inotropes/diuretics will be provided as needed
Monitor chest tube output
Monitor hemoglobin
Monitor platelet count and coags
Transfuse blood product if needed
CT surgery following chest tubes and small R postop pntx
Monitor blood sugar
Insulin drip per protocol
Continue chronic HD
On HD session at time of visit 12-17
Former smoker:
Not on home O2 or BDs
No h/o chronic resp symptoms
Pre CABG CT s/c 12-15 with trace mosaic pattern and small R ant basilar inflammatory change: no need for further work up at this juncture. No indication for atbs or systemic CS for pulm reasons
Aspiration precautions
DVT prophylaxis
Early nutrition
Early mobilization
Reconsult prn
ATTENDING PHYSICIAN ATTESTATION:
(Follow-up Visit:)
I personally saw and evaluated the patient along with the Resident Dr Kelly.
Discussed with Resident and discussed in rounds with MDT.
I agree with Resident�s findings and plan as documented in the resident�s note, which was edited by myself.
Subjective Dataa
Subjective Data
Subjective:
Patient seen at bedside.
Hypotensive episode earlier in the morning
On hemodialysis
Not on home O2 or bronchodilators, has history of smoking
Objective Data
Physical Exam
General: Comfortable
HEENT: Normocephalic and Moist Mucous Membranes
Cardiovascular: Regular Rhythm, Peripheral Edema (mild pedal) and Other (LUE AVF)
Respiratory: Clear, Non-Labored Respirations and Stridor (n)
GI: Soft, Non Distended and Non Tender
Neurology: Awake, AO x 3 and No Motor Deficits
Skin: Warm
--- NOTE | 2023-12-18 08:05 | W.PN.ANS.POP ---
Anesthesia Post Operative
- Anesthesia Post Op Note
Vital Signs Stable-See Nursing Note: Yes
Airway Patent: Yes
Adequate Pain Control: Yes
Change in Mental Status: No
Current Postoperative Nausea & Vomiting: No
Anesthesia Complications: No
General Anesthetic Recall: No
Unplanned Admission: No
Post Op Hydration Adequate: Yes
--- NOTE | 2023-12-18 08:32 | PTCARENOTE ---
assumed care of pt from previous shift RN, sinus rhythm on tele w HR 70's, right radial michael leveled and zeroed, + peripheral pulses, no edema. Lungs diminished, pox 100% on 2L NC. +hypoactive BS, tolerating PO medications. Pt is oliguric. Sternal
aquacell intact, dressings maintained to bilateral knees and right heel. Right IJ cordis w KVO and Levophed infusing, PIV w insulin being titrated per glycemic protocol. Dialysis in progress. Pt medicated for pain and updated with plan of care.
--- NOTE | 2023-12-18 08:38 | PN.CDI ---
CDI
- -
CDI:
Physician Documentation Request
Admit Date: 12/14/23 16:35
Dear Doctor Oswaldo,
Patient presented to ED after feeling weak and dropping to his knees. Patient was already scheduled on 12/16 for CABG.
Troponin prior to CABG resulted as follows:
Laboratory Tests
12/14/23 12/14/23 12/15/23
16:19 20:04 08:03
Troponin I 1.190 H* 2.070 H* D 3.120 H*
12/15/23 12/15/23
13:55 22:25
Troponin I 3.720 H* 2.950 H*
Could you please provide a diagnosis that supports the above lab abnormalities and additional evaluation/monitoring:
Nonischemic myocardial injury
Type II demand ischemia
NSTEMI
Other
Use of terms such as suspected, likely, concern for, or probable (associated with a specific diagnosis that is being evaluated, monitored, or treated as if it exists) are acceptable and can be coded in the inpatient setting, when documented at the
time of discharge.
Thank you,
Merced Rodriguez RN, BSN
CDI Specialist
tiger text
Please use your independent medical judgment in providing your response.
[2023-12-18] MEDS: RETACRIT 6000 UNITS IV (09:15)
--- NOTE | 2023-12-18 09:28 | W.PN.CD ---
Today's Communication / Plan
-
geting HD currently
wean levo as tolerated after HD
Impression / Plan
-
BACKGROUND: 43 [place] male with past medical history of coronary artery disease status post mid LAD stent from 08/2022 and 05/2023, hypertension, diabetes type 2, dyslipidemia, diabetic neuropathy, diabetic retinopathy, osteomyelitis to the
heel, and end-stage renal disease on dialysis presents with presyncope.
Multivessel coronary artery disease:
-now s/p CABG x 3 (JASON to LAD, GSV to D, GSV to RPDA), Dr. Chacon 12/17/23
-intubated/sedated
-CT's and berger in place
-s/p 1 unit PRBC
-post-op EKG SR with nonspecific ST abnormalities, tele stable in SR
-reaminson levo
- rub on exam with chest tubes in plac
ESRD on HD currently- Nephrology following
HLD, continue statin, LDL 41
Type II DM, Hgba1c 6.1%
Anemia of chronic disease and post op anemia- monitor
Chronic thrombocytopenia
Osteomyelitis, some non-adherence to amoxicillin due to cost
Former smoker, continued cessation recommended
SUBJECTIVE:
awake comfortable on HD
Physical Exam
Vital Signs/Labs
Vital Signs
Temp Pulse Resp BP Pulse Ox
98.1 F 67 18 109/71 100
12/18/23 07:57 12/18/23 07:30 12/18/23 07:57 12/18/23 07:30 12/18/23 07:57
12/17/23 12/18/23 12/19/23
06:59 06:59 06:59
Actual Weight 80.9 kg 84.1 kg
12/18/23 03:10
12/18/23 03:10
PT 18.4 Sec (11.4-14.6) H 12/17/23 13:04
INR 1.52 12/17/23 13:04
APTT 33.7 Sec (23.4-35.0) 12/17/23 13:04
Magnesium 2.4 mg/dl (1.6-2.3) H 12/18/23 03:10
Triglycerides 112 mg/dl (10-149) 12/15/23 05:03
LDL Cholesterol, Calc 41 mg/dl 12/15/23 05:03
VLDL Cholesterol, Calc 22 mg/dl (0-30) 12/15/23 05:03
HDL Cholesterol 40 mg/dl 12/15/23 05:03
LAB Results
12/15/23 12/15/23
13:55 22:25
Troponin I 3.720 H* 2.950 H*
Physical Exam
Constitutional: No acute distress
EENT: Anicteric
Cardiovascular: Rhythm & rate is regular, Rub present and Other (note chest tubesin place)
Respiratory: Respiratory effort normal and Other
GI: Soft, Non tender and Other
Neuro/Psych: Alert and AO x 3
Data Reviewed
-
Date of Service: December 18, 2023
Medical Decision Making: Reviewed Test Results
EKG: Report Reviewed by me
Medical Tests (PFT, Pathology etc): Image Personally Visualized and interpreted
Labs: Labs Reviewed by me
--- NOTE | 2023-12-18 09:52 | W.PN.UPDATE ---
Update Note
Progress Note Update
CDI QUERY RESPONSE
Hypertensive Urgency
Type II demand ischemia
[2023-12-18] MEDS: DILAUDID 0.5 MG IV (10:01)
[2023-12-18 10:08] LABS: Glucose - Point of Care 94 mg/dl (70-99)
[2023-12-18] MEDS: MANNITOL 25% 12.5 GRAMS IV (10:40)
[2023-12-18] MEDS: PACERONE PO ×2 (11:53→17:10)
[2023-12-18] MEDS: LIPITOR 40 MG PO (12:24)
[2023-12-18] MEDS: PLAVIX 75 MG PO (12:24)
[2023-12-18] MEDS: B COMPLEX w/VITAMIN C 1 CAPLET PO (12:24)
[2023-12-18] MEDS: PROTONIX 40 MG PO (12:24)
[2023-12-18] MEDS: NEPHROCAP 1 CAPSULE PO (12:24)
[2023-12-18] MEDS: SENOKOT-S 1 TABLET PO ×2 (12:24→20:11)
[2023-12-18] MEDS: AUGMENTIN 875 MG/125 MG 1 TABLET PO ×2 (12:24→20:11)
[2023-12-18] MEDS: LOW STRENGTH ASPIRIN 81 MG PO (12:24)
[2023-12-18] MEDS: VITAMIN D3 (cholecalciferol) 25 MCG PO (12:25)
[2023-12-18] MEDS: BACTROBAN 2% OINTMENT 1 APPLIC NASAL ×2 (12:29→20:12)
[2023-12-18] MEDS: NEURONTIN PO ×2 (12:29→17:41)
[2023-12-18] MEDS: LIDOCAINE 4% PATCH TOPICAL (12:29)
[2023-12-18 12:35] LABS: Glucose - Point of Care 91 mg/dl (70-99)
[2023-12-18] MEDS: NSS IV (12:45)
--- NOTE | 2023-12-18 12:47 | PTCARENOTE ---
Dialysis tx completed, levo gtt being weaned as appropriate. Midodrine administered as ordered. Pt tolerated clear liquid meal tray, poor appetite. at bedside and updated on plan of care.
[2023-12-18] MEDS: ProAmatine 10 MG PO ×2 (13:11→17:52)
--- NOTE | 2023-12-18 14:31 | W.PN.NEPH.HD ---
Assessment
-
- resting comfortably on HD
- no complaints
Progress Note - Hemodialysis
-
Date of Service: December 18, 2023
Duration: 30 minutes and 3 hours
Potassium Bath: 3
Calcium Bath: 2.5
Opti-Dialyzer: 160
Ultrafiltration: Other
Blood Flow: 400
Dialysate Flow: 600
--- NOTE | 2023-12-18 15:11 | CM ---
Reviewed chart. Met with Mr. Parr and his sisters to review discharge plans. He states he is feeling okay. He states prior to admission he resides with his spouse in a second floor apartment with thirteen steps to enter. He states prior to
admission he was independent with ambulation and adls. He states he goes to outpatient dialysis at [facility]. He usually drives himself. He states his spouse or he will take an Uber to outpatient dialysis. He does not have any DME in
the home. Awaiting Physical and Occupational Therapy evaluations to see if he will have any skilled care needs. Medical work-up in progress. The discharge plan is to return home with his spouse, outpatient dialysis and a home visit by the
Cardiothoracic Transitional Care Nurse versus acute inpatient rehab. if indicated and approved for admission by Valentín and his insurance when medically stable.
[2023-12-18 15:47] LABS: Glucose - Point of Care 137 mg/dl (70-99)
--- NOTE | 2023-12-18 17:11 | PTCARENOTE ---
attempted to get pt OOB, elevated HOB. Did not even get to a seated position on the side of the bed- pt's BP dropped to 53/24, HR 60. Pt became unresponsive. CT ADEEL to beside, while this RN lowered the pt's HOB, titrated Levophed up. Pt regained
consciousness, BP improved. Pt to remain in bed and receive 1 unit of PRBC. PRBC transfusion in progress, CT dressing, abrasion dressings to bilateral knees and diabetic wound dressing on left heel changed.
[2023-12-18] MEDS: RENVELA PO (17:41)
[2023-12-18 17:56] LABS: Glucose - Point of Care 139 mg/dl (70-99)
--- NOTE | 2023-12-18 17:59 | PTCARENOTE ---
pt bladder scanned for 0ml s/p berger removal and dialysis treatment.
[2023-12-18] MEDS: ROXICODONE 2.5 MG PO (18:35)
--- NOTE | 2023-12-18 20:00 | PTCARENOTE ---
assumed care of patient @ 1900. received pt laying in bed, AOX3. NSR on tele, +pulses, AV fistula with bruit and thrill. BP labile on 4 of levo, systolic between 90-120. Lungs clear, diminished on 2L satting 100 percent. trialed on room air 02 89%.
IS ~ 1000. 4 CT to wall suction no air leak, tidaling or crepitus noted. no n.v, poor appetite reportedly. Anuric, will follow bladder scans. Surgical dressings CDI. b.l knee abrasions with dressing, R heel with protective foam, L heel wound with
foam. R IJ cordis patent, R AC # 20 patent. received with levo at 4 , insulin per protocol .
[2023-12-18 20:07] LABS: Glucose - Point of Care 142 mg/dl (70-99)
[2023-12-18] MEDS: CALCIUM CHLORIDE 10% SYRINGE 60 MG IV (20:10)
[2023-12-18] MEDS: SODIUM BICARBONATE 50 MEQ IV ×2 (20:11→21:36)
--- NOTE | 2023-12-18 20:20 | PTCARENOTE ---
1g calcium IVPB and 50 meq sodium bicarb given per order to try to get patient off levo - able to turn down levo from 4 to 2, systolics currently in the 90s- low 100s.
[2023-12-18] MEDS: NEURONTIN 100 MG PO (20:58)
[2023-12-18] MEDS: RENVELA 800 MG PO (20:59)
--- NOTE | 2023-12-18 21:30 | PTCARENOTE ---
BP dropped into 70s systolically, 500 mg calcium IVP and 50meq sodium bicarb given - BP back up in the 90s, now on 1 .
[2023-12-18] MEDS: CALCIUM CHLORIDE 10% SYRINGE 500 MG IV (21:36)
[2023-12-18 21:43] LABS: Glucose - Point of Care 134 mg/dl (70-99)
[2023-12-19] VITALS (31 sets, daily range): BP systolic 80–121; BP diastolic 44–68; PULSE 66; O2SAT 97; BMI 26.3
[2023-12-19 00:15] LABS: Glucose - Point of Care 97 mg/dl (70-99)
[2023-12-19 02:53] LABS: Glucose - Point of Care 87 mg/dl (70-99)
--- NOTE | 2023-12-19 03:00 | PTCARENOTE ---
labs drawn and sent, levo titrated off, no other change in assessment
[2023-12-19 03:06] LABS: Ionized Calcium 1.17 mMOL/L (1.15-1.33)
[2023-12-19 03:08] LABS: Hematocrit 25.3 % (39.0-52.0); Hemoglobin 8.7 g/dL (13.0-18.0); Mean Corp Hgb Conc. 34.4 g/dL (33.0-37.0); Mean Corpuscular Hgb 30.3 pg (27.0-31.0); Mean Corpuscular Volume 88.2 fL (80.0-94.0); Mean Platelet Volume 9.2 fL (7.4-10.4); Platelet Count 132 10^3/uL (130-400); Red Blood Cell Count 2.87 10^6/uL (4.70-6.10); Red Cell Dist. Width 17.7 % (11.5-14.5); White Blood Cell Count 11.1 10^3/uL (4.8-10.8)
[2023-12-19 03:35] LABS: Blood Urea Nitrogen 34 mg/dl (9-20); Calcium 9.2 mg/dl (8.4-10.2); Carbon Dioxide 25 mmol/L (22-30); Chloride 96 mmol/L (98-107); Estimated Creatinine Clearance 13 ml/min; Glucose 84 mg/dl (70-99); Magnesium 2.3 mg/dl (1.6-2.3); Potassium 4.6 mmol/L (3.5-5.1); Sodium 133 mmol/L (135-145); eGFR 8.24
--- NOTE | 2023-12-19 04:00 | PTCARENOTE ---
500 mg calcium given per order for replacement
[2023-12-19] MEDS: CALCIUM CHLORIDE 10% SYRINGE 500 MG IV (04:09)
[2023-12-19 04:15] LABS: Glucose - Point of Care 98 mg/dl (70-99)
[2023-12-19] MEDS: NOVOLIN R INSULIN INFUSION 100 IV (04:15)
[2023-12-19 05:56] LABS: Glucose - Point of Care 100 mg/dl (70-99)
[2023-12-19] MEDS: TYLENOL 1000 MG PO ×3 (06:15→20:22)
[2023-12-19] MEDS: CALCIUM CHLORIDE 10% SYRINGE 60 MG IV (06:15)
--- NOTE | 2023-12-19 06:42 | W.PN.CT ---
Today's Communication / Plan
-
Plan:
-No major issues overnight. Hemodynamically and neurologically intact
-Had orthostatic hypotension on POD#1. BP improving
-Weaned off of Levophed overnight, weaned from 10. On Midodrine as well
-Received HD yesterday 6/21, got 1u PRBC with HD. HD QMWF
-H/H 8.7/25.3, monitor
-Monitor electrolytes
-On ASA and Plavix, Augment for left heel osteomyelitis. Amiodarone and BB on hold
-Will transition to tele phase today, once off insulin gtt
-F/u small right apical ptx. No air leak noted, ptx appears tiny/unchanged on my assessment
-Monitor chest tubes for possible d/c: 2meds 40/70, R/L pls 55/115. Consider d/c of med and left pleural
-OOB into chair/Ambulate as tolerated
-Encourage use of IS
-No temporary PW
-Maintain cordis another day
-Had TTE yesterday 6/21 which showed improved LVEF from 55% intraop to 55-60%
Assessment / Plan
-
s/p CABG x 3 (JASON to LAD, GSV to D, GSV to RPDA) POD # 2�
Assessment:
NTEMI/systolic CHF 12/ �
Multivessel CAD
s/p PCI 23�
ERSD on HD (MWF)�
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
L 1 and 2nd toe amputation�
Left heel osteomyelitis (on chronic Augmentin)
HTN�
HLD�
Cat ext W/IOL�
Acute postop blood loss on chronic anemia (transfused 2u PRBC)
Acute on chronic thrombocytopenia (stable without active bleed)
Acute postop hypovolemia
Acute postop orthostatic hypotension
Acute postop small right apical ptx
Discussed patient care with: Cardiology, Nursing, Respiratory Therapy, Pharmacy and Care Team
Subjective
Procedure
CABG x 3 (JASON to LAD, GSV to D, GSV to RPDA) POD # 2�
-
Date of Service: December 19, 2023
Pt c/o pleuritic chest pain, otherwise feels well
Objective Data
-
Lab Results
12/19/23 03:00
12/19/23 02:59
PT 18.4 Sec (11.4-14.6) H 12/17/23 13:04
INR 1.52 12/17/23 13:04
APTT 33.7 Sec (23.4-35.0) 12/17/23 13:04
Vital Signs
Vital Signs
Temp Pulse Resp BP Pulse Ox
97.7 F 69 16 107/64 97
12/18/23 20:00 12/19/23 06:21 12/19/23 06:00 12/19/23 06:21 12/19/23 06:15
CT Intake/Output/Weight
12/18/23 12/18/23 12/19/23
06:59 18:59 06:59
Intake Total 619.9 / 984.8 647.1 / 844.6 197.5 / 844.6
Output Total 170 / 370 90 / 185 95 / 185
Balance 449.9 / 614.8 557.1 / 659.6 102.5 / 659.6
SaO2: 97
Physical Exam
-
General: Awake, Oriented and AOx3
Cardiovascular: Regular rate & rhythm, No Murmurs, Rub and No Gallop
Respiratory: Decreased Breath Sounds
Sternum: Stable
Incision: Clean, Dry, Intact and Dressing Intact
Extremities: Other (+trace edema)
Data Reviewed
-
Lab Results: Results Reviewed
Medications: Active Meds Reviewed
Chest X-Ray: Report Reviewed and Image Reviewed
ECG: Report Reviewed and Image Reviewed
--- NOTE | 2023-12-19 08:00 | PTCARENOTE ---
resumed care of patient from prev RN. walking rounds completed. pt resting in bed at time of assessment. AAOX3. SR on monitor HR 60s. +pulses,trace edema. VSS off levo. AV fistula present w/ +bruit/thrill. For HD MWF. Lungs diminished. 97% on 1L o2.
attempted to wean to RA. pulse ox dropping into the 80s. IS reaches 1250. CT x4 to -20 suction. no air leak/crepitus. for d/c this afternoon if no dumping once stood. appetite fair. +bs and passing gas. Anuric. All surgical sites CDI. R IJ cordis ,
PIVx1 and a line present. flattening a line noted. Order received to d/c. Cuff pressures accurate.insulin gtt infusing per protocol. no current complaints. will continue to monitor.
[2023-12-19 08:23] LABS: Glucose - Point of Care 107 mg/dl (70-99)
[2023-12-19] MEDS: BACTROBAN 2% OINTMENT 1 APPLIC NASAL ×2 (08:34→20:23)
[2023-12-19] MEDS: LIDOCAINE 4% PATCH TOPICAL (08:36)
[2023-12-19] MEDS: NEURONTIN 100 MG PO ×3 (08:43→20:23)
[2023-12-19] MEDS: RENVELA 800 MG PO ×3 (08:45→20:23)
[2023-12-19] MEDS: NEPHROCAP 1 CAPSULE PO (08:45)
[2023-12-19] MEDS: B COMPLEX w/VITAMIN C 1 CAPLET PO (08:45)
[2023-12-19] MEDS: SENOKOT-S 1 TABLET PO (08:45)
[2023-12-19] MEDS: LOW STRENGTH ASPIRIN 81 MG PO (08:45)
[2023-12-19] MEDS: ProAmatine 10 MG PO ×3 (08:46→18:12)
[2023-12-19] MEDS: PROTONIX 40 MG PO (08:46)
[2023-12-19] MEDS: PLAVIX 75 MG PO (08:47)
[2023-12-19] MEDS: VITAMIN D3 (cholecalciferol) 25 MCG PO (08:47)
[2023-12-19] MEDS: AUGMENTIN 875 MG/125 MG 1 TABLET PO ×2 (08:47→20:22)
[2023-12-19] MEDS: LIPITOR 40 MG PO (08:47)
[2023-12-19 10:44] LABS: Glucose - Point of Care 153 mg/dl (70-99)
--- NOTE | 2023-12-19 12:00 | PTCARENOTE ---
d/c chest tubes x4 and A line without issue. will continue to monitor.
[2023-12-19 13:30] LABS: Glucose - Point of Care 151 mg/dl (70-99)
[2023-12-19] MEDS: NOVOLOG FLEXPEN-MODERATE RESISTANCE 1 UNITS SC ×2 (13:32→17:58)
[2023-12-19] MEDS: NSS 500 IV (13:36)
--- NOTE | 2023-12-19 13:52 | PTCARENOTE ---
patient tolerated me getting him oob and into chair, but when PT OT worked with him he stood for 30 seconds and got light headed and dizzy. knees buckled and he went most unresponsive. BP 80s sys at this time. sat back into chair and recovered
quickly. BP back up into high 90s-[id number]. AAOx3 again. will continue to monitor.
--- NOTE | 2023-12-19 14:40 | W.PN.NEPH.PH ---
Today's Communication / Plan
-
- HD Thursday
Assessment/Plan
-
Assessment:
ESRD on HD (~2 years, via [facility])
T2DM
HTN
CAD
osteomyelitis of heel
DLD
anemia
Plan:
- s/p CABG on 12/16
- feeling well
- off pressors, on midodrine
- extubated
- plan for ALINA with HD. next HD on Thursday
-
-
Date of Service: December 19, 2023
CC / HPI / ROS
-
Chief Complaint:
End-stage renal disease
History of Present Illness:
End-stage renal disease Thursday
Hemodynamically labile on low-dose pressor
Status post CABG on 12/17/2023
Review of Systems:
Extubated
Postsurgical chest discomfort
Labs
-
Labs:
WBC 11.1 10^3/uL (4.8-10.8) H 12/19/23 03:00
RBC 2.87 10^6/uL (4.70-6.10) L 12/19/23 03:00
Hgb 8.7 g/dL (13.0-18.0) L 12/19/23 03:00
Hct 25.3 % (39.0-52.0) L 12/19/23 03:00
Plt Count 132 10^3/uL (130-400) D 12/19/23 03:00
Sodium 133 mmol/L (135-145) L 12/19/23 02:59
Potassium 4.6 mmol/L (3.5-5.1) 12/19/23 02:59
Chloride 96 mmol/L (98-107) L 12/19/23 02:59
Carbon Dioxide 25 mmol/L (22-30) 12/19/23 02:59
BUN 34 mg/dl (9-20) H 12/19/23 02:59
Creatinine 7.8 mg/dL (0.7-1.3) H* 12/19/23 02:59
eGFR 8.24 12/19/23 02:59
Glucose 84 mg/dl (70-99) 12/19/23 02:59
Calcium 9.2 mg/dl (8.4-10.2) 12/19/23 02:59
Phosphorus 4.3 mg/dl (2.5-4.5) 12/14/23 13:55
Albumin 3.8 g/dl (3.5-5.0) 12/17/23 04:11
Physical Exam
-
Vital Signs:
Vital Signs
Temp Pulse Resp BP Pulse Ox
98.2 F 66 16 105/60 98
12/19/23 12:00 12/19/23 13:36 12/19/23 06:00 12/19/23 13:36 12/19/23 13:15
Cardiovascular:: Regular rate and rhythm
Respiratory:: Bilateral: Coarse
Lung Excursion:: Normal
Abdomen:: Nontender and Soft
Bowel Sounds:: Normal
Extremity Edema:: None: Bilateral:
Yeager Catheter: No
--- NOTE | 2023-12-19 14:44 | W.PN.CD ---
Today's Communication / Plan
-
Monitor blood pressures on midodrine.
Remains off beta-melanie due to blood pressure
Impression / Plan
-
BACKGROUND: 43 [place] male with past medical history of coronary artery disease status post mid LAD stent from 08/2022 and 05/2023, hypertension, diabetes type 2, dyslipidemia, diabetic neuropathy, diabetic retinopathy, osteomyelitis to the
heel, and end-stage renal disease on dialysis presents with presyncope.
Multivessel coronary artery disease:
-now s/p CABG x 3 (JASON to LAD, GSV to D, GSV to RPDA), Dr. Chacon 12/17/23
-intubated/sedated
-CT's and berger in place
Hypotension. Now off pressors but he did have some lower blood pressures reported earlier today. Now maintained on midodrine. Continue to monitor on current therapy.
ESRD on HD currently- Nephrology following
HLD, continue statin, LDL 41
Type II DM, Hgba1c 6.1%
Anemia of chronic disease and post op anemia- monitor
Chronic thrombocytopenia
Osteomyelitis, some non-adherence to amoxicillin due to cost
Former smoker, continued cessation recommended
SUBJECTIVE:
awake comfortable in chair.
Physical Exam
Vital Signs/Labs
Vital Signs
Temp Pulse Resp BP Pulse Ox
98.2 F 66 16 105/60 98
12/19/23 12:00 12/19/23 13:36 12/19/23 06:00 12/19/23 13:36 12/19/23 13:15
12/18/23 12/19/23 12/20/23
06:59 06:59 06:59
Actual Weight 84.1 kg 83.1 kg
12/19/23 03:00
12/19/23 02:59
PT 18.4 Sec (11.4-14.6) H 12/17/23 13:04
INR 1.52 12/17/23 13:04
APTT 33.7 Sec (23.4-35.0) 12/17/23 13:04
Magnesium 2.3 mg/dl (1.6-2.3) 12/19/23 02:59
Triglycerides 112 mg/dl (10-149) 12/15/23 05:03
LDL Cholesterol, Calc 41 mg/dl 12/15/23 05:03
VLDL Cholesterol, Calc 22 mg/dl (0-30) 12/15/23 05:03
HDL Cholesterol 40 mg/dl 12/15/23 05:03
Physical Exam
Constitutional: No acute distress
Cardiovascular: Rhythm & rate is regular
Respiratory: Respiratory effort normal
GI: Soft
Neuro/Psych: Alert
Data Reviewed
-
Date of Service: December 19, 2023
[2023-12-19 17:57] LABS: Glucose - Point of Care 157 mg/dl (70-99)
[2023-12-19] MEDS: SENOKOT-S PO (20:23)
[2023-12-19] MEDS: FLEXERIL 5 MG PO (20:23)
[2023-12-19 20:35] LABS: Glucose - Point of Care 173 mg/dl (70-99)
--- NOTE | 2023-12-19 20:57 | PTCARENOTE ---
assumed care of patient @ 1900. received pt laying in bed, AOX3. VSS on 1l 02, BP stable. assisted pt to commode, had BM, returned back to bed without incident. pressure stable. NSR on monitor hr 60s. AV fistula L arm with good bruit and thrill. no
edema. Lungs clear, diminished on 1L satting mid 90s. belly soft normactive nontender. oliguric, did void 50 CCs in commode. All dressings and inscisions CDI. R IJ cordis with KVO patent . pt resting comfortably in bed with call joiner within reach .
--- NOTE | 2023-12-19 23:16 | PTCARENOTE ---
pt resting comfortably with call joiner within reach , no change in assessment
[2023-12-20] VITALS (20 sets, daily range): BP systolic 85–122; BP diastolic 42–77; PULSE 62–68; O2SAT 98; BMI 26.7
--- NOTE | 2023-12-20 03:58 | W.PN.CT ---
Today's Communication / Plan
-
Plan:
-No major issues overnight. Hemodynamically and neurologically intact
-Had orthostatic hypotension on POD#1. BP soft/labile postop
-Weaned off of Levophed @ 0300 on 12/18. Remains on Midodrine
-Received HD on Sunday 12/17, got 1u PRBC with HD. HD QMWF. Nephrology following
-H/H 7.7/22.8 this AM, was 8.7/25.3 yesterday, partly hemodilutional, but will benefit from 1-2u PRBC with HD tomorrow to help wean off midodrine
-Na+ 131 today, was 133 yesterday, likely d/t hypovolemia
-Monitor electrolytes
-On ASA and Plavix, Augment for left heel osteomyelitis. Amiodarone and BB on hold
-F/u small right apical ptx, appears tiny/unchanged on my assessment. F/U official report
-OOB into chair/Ambulate as tolerated
-Encourage use of IS
-No temporary PW
-Maintain cordis another day given ongoing labile BP
-Had TTE / which showed improved LVEF from 55% intraop to 55-60%
-Home likely in 1-2 days
Assessment / Plan
-
Assessment:
s/p CABG x 3 (JASON to LAD, GSV to D, GSV to RPDA) POD #3
NTEMI/systolic CHF 12/ �
Multivessel CAD
s/p PCI 23�
ERSD on HD (MWF)�
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
L 1 and 2nd toe amputation�
Left heel osteomyelitis (on chronic Augmentin)
HTN�
HLD�
Cat ext W/IOL�
Acute postop blood loss on chronic anemia (transfused 2u PRBC)
Acute on chronic thrombocytopenia (stable without active bleed)
Acute postop hypovolemia
Acute postop orthostatic hypotension
Acute postop small right apical ptx
Discussed patient care with: Cardiology, Nursing, Respiratory Therapy, Pharmacy and Care Team
Subjective
Procedure
CABG x 3 (JASON to LAD, GSV to D, GSV to RPDA)
-
Date of Service: December 20, 2023
Pt c/o mild incisional pain, otherwise feels well. Able to get OOB into chair yesterday without orthostasis
Objective Data
-
PT 18.4 Sec (11.4-14.6) H 12/17/23 13:04
INR 1.52 12/17/23 13:04
APTT 33.7 Sec (23.4-35.0) 12/17/23 13:04
Vital Signs
Vital Signs
Temp Pulse Resp BP Pulse Ox
98.4 F 64 16 93/44 95
12/19/23 20:00 12/19/23 23:00 12/19/23 06:00 12/19/23 23:00 12/19/23 23:15
CT Intake/Output/Weight
12/19/23 12/19/23 12/20/23
06:59 18:59 06:59
Intake Total 197.5 / 855.9 33.6 / 513.6 480 / 513.6
Output Total 95 / 185 50 / 50
Balance 102.5 / 670.9 33.6 / 463.6 430 / 463.6
SaO2: 95 (1L)
Physical Exam
-
General: Awake, Oriented and AOx3
Cardiovascular: Regular rate & rhythm, No Murmurs and No Gallop
Respiratory: Decreased Breath Sounds (at bases, otherwise clear)
Sternum: Stable
Incision: Clean, Dry, Intact and Dressing Intact
Extremities: No Edema
Data Reviewed
-
Lab Results: Results Reviewed
Medications: Active Meds Reviewed
Chest X-Ray: Report Reviewed and Image Reviewed
ECG: Report Reviewed and Image Reviewed
[2023-12-20 05:19] LABS: Hematocrit 22.8 % (39.0-52.0); Hemoglobin 7.7 g/dL (13.0-18.0); Mean Corp Hgb Conc. 33.8 g/dL (33.0-37.0); Mean Corpuscular Hgb 30.2 pg (27.0-31.0); Mean Corpuscular Volume 89.4 fL (80.0-94.0); Mean Platelet Volume 9.3 fL (7.4-10.4); Platelet Count 114 10^3/uL (130-400); Red Blood Cell Count 2.55 10^6/uL (4.70-6.10); Red Cell Dist. Width 18.1 % (11.5-14.5); White Blood Cell Count 10.3 10^3/uL (4.8-10.8)
[2023-12-20 05:40] LABS: Blood Urea Nitrogen 56 mg/dl (9-20); Calcium 8.1 mg/dl (8.4-10.2); Carbon Dioxide 26 mmol/L (22-30); Chloride 91 mmol/L (98-107); Estimated Creatinine Clearance 9 ml/min; Glucose 116 mg/dl (70-99); Magnesium 2.4 mg/dl (1.6-2.3); Potassium 4.8 mmol/L (3.5-5.1); Sodium 131 mmol/L (135-145); eGFR 5.58
[2023-12-20] MEDS: TYLENOL PO (08:01)
--- NOTE | 2023-12-20 08:43 | PTCARENOTE ---
Patient received from network intern resting oob in chair, dozing, denies pain. NSR via cm, SaO2 @ 97% on 0.5LNC - titrated off w/resultant SaO2 @ 93% on RA. RIJ Cordis w/kvo infusing. All procedural sites stable. Patient updated to plan of care, in
agreement. Breakfast ordered. See work list for full assessment and interventions performed.
[2023-12-20 09:01] LABS: Glucose - Point of Care 139 mg/dl (70-99)
[2023-12-20] MEDS: NOVOLOG FLEXPEN-MODERATE RESISTANCE SC (09:01)
[2023-12-20] MEDS: RENVELA 800 MG PO ×3 (09:15→21:04)
[2023-12-20] MEDS: PROTONIX 40 MG PO (09:15)
[2023-12-20] MEDS: ProAmatine 10 MG PO ×3 (09:15→18:22)
[2023-12-20] MEDS: VITAMIN D3 (cholecalciferol) 25 MCG PO (09:15)
[2023-12-20] MEDS: SENOKOT-S 1 TABLET PO ×2 (09:15→21:04)
[2023-12-20] MEDS: NEPHROCAP 1 CAPSULE PO (09:15)
[2023-12-20] MEDS: NEURONTIN 100 MG PO ×3 (09:16→21:04)
[2023-12-20] MEDS: LIDOCAINE 4% PATCH 1 PATCH TOPICAL (09:16)
[2023-12-20] MEDS: B COMPLEX w/VITAMIN C 1 CAPLET PO (09:16)
[2023-12-20] MEDS: LOW STRENGTH ASPIRIN 81 MG PO (09:16)
[2023-12-20] MEDS: LIPITOR 40 MG PO (09:16)
[2023-12-20] MEDS: PLAVIX 75 MG PO (09:16)
[2023-12-20] MEDS: BACTROBAN 2% OINTMENT 1 APPLIC NASAL ×2 (09:16→21:05)
[2023-12-20] MEDS: AUGMENTIN 875 MG/125 MG 1 TABLET PO ×2 (09:16→21:04)
[2023-12-20] MEDS: NSS IV (09:33)
[2023-12-20] MEDS: FLEXERIL 5 MG PO ×2 (09:49→23:50)
--- NOTE | 2023-12-20 12:15 | W.PN.NEPH.PH ---
Today's Communication / Plan
-
- HD tomorrow
Assessment/Plan
-
Assessment:
ESRD on HD (~2 years, via [facility])
T2DM
HTN
CAD
osteomyelitis of heel
DLD
anemia
Plan:
- s/p CABG on 12/16
- feeling well
- off pressors, on midodrine
- extubated
- plan for ALINA with HD. next HD on Thursday
-
-
Date of Service: December 20, 2023
CC / HPI / ROS
-
Chief Complaint:
End-stage renal disease
History of Present Illness:
End-stage renal disease Thursday
Hemodynamically labile on low-dose pressor
Status post CABG on 12/17/2023
Review of Systems:
Extubated
Postsurgical chest discomfort
Labs
-
Labs:
WBC 10.3 10^3/uL (4.8-10.8) 12/20/23 05:08
RBC 2.55 10^6/uL (4.70-6.10) L 12/20/23 05:08
Hgb 7.7 g/dL (13.0-18.0) L 12/20/23 05:08
Hct 22.8 % (39.0-52.0) L 12/20/23 05:08
Plt Count 114 10^3/uL (130-400) L 12/20/23 05:08
Sodium 131 mmol/L (135-145) L 12/20/23 05:08
Potassium 4.8 mmol/L (3.5-5.1) 12/20/23 05:08
Chloride 91 mmol/L (98-107) L 12/20/23 05:08
Carbon Dioxide 26 mmol/L (22-30) 12/20/23 05:08
BUN 56 mg/dl (9-20) H 12/20/23 05:08
Creatinine 10.8 mg/dL (0.7-1.3) H* 12/20/23 05:08
eGFR 5.58 12/20/23 05:08
Glucose 116 mg/dl (70-99) H 12/20/23 05:08
Calcium 8.1 mg/dl (8.4-10.2) L 12/20/23 05:08
Phosphorus 4.3 mg/dl (2.5-4.5) 12/14/23 13:55
Albumin 3.8 g/dl (3.5-5.0) 12/17/23 04:11
Physical Exam
-
Vital Signs:
Vital Signs
Temp Pulse Resp BP Pulse Ox
98.4 F 64 16 103/57 94
12/20/23 08:13 12/20/23 11:38 12/20/23 11:38 12/20/23 11:35 12/20/23 11:38
Cardiovascular:: Regular rate and rhythm
Respiratory:: Bilateral: Coarse
Lung Excursion:: Normal
Abdomen:: Nontender and Soft
Bowel Sounds:: Normal
Extremity Edema:: None: Bilateral:
Yeager Catheter: No
[2023-12-20 13:14] LABS: Glucose - Point of Care 198 mg/dl (70-99)
[2023-12-20] MEDS: NOVOLOG FLEXPEN-MODERATE RESISTANCE 1 UNITS SC ×2 (13:17→17:23)
[2023-12-20] MEDS: TYLENOL 1000 MG PO ×2 (13:18→21:03)
--- NOTE | 2023-12-20 13:43 | W.PN.CD ---
Today's Communication / Plan
-
post op anemia on top of chronic anemia
- consider PRBC with HD
monitor pressures
Impression / Plan
-
BACKGROUND: 43 [place] male with past medical history of coronary artery disease status post mid LAD stent from 08/2022 and 05/2023, hypertension, diabetes type 2, dyslipidemia, diabetic neuropathy, diabetic retinopathy, osteomyelitis to the
heel, and end-stage renal disease on dialysis presents with presyncope.
Multivessel coronary artery disease:
-now s/p CABG x 3 (JASON to LAD, GSV to D, GSV to RPDA), Dr. Chacon 12/17/23
-intubated/sedated
-CT's and berger in place
Hypotension. off pressors . Now maintained on midodrine. Continue to monitor on current therapy.
anemia - post op anemia on top of chronic anemia
- consider PRBC with HD
.
ESRD on HD currently- Nephrology following
HLD, continue statin, LDL 41
Type II DM, Hgba1c 6.1%
Anemia of chronic disease and post op anemia- monitor
Chronic thrombocytopenia
Osteomyelitis, some non-adherence to amoxicillin due to cost
Former smoker, continued cessation recommended
SUBJECTIVE:
awake comfortable in chair.
Physical Exam
Vital Signs/Labs
Vital Signs
Temp Pulse Resp BP Pulse Ox
98.4 F 65 16 108/65 94
12/20/23 08:13 12/20/23 13:18 12/20/23 11:38 12/20/23 13:18 12/20/23 11:38
12/19/23 12/20/23 12/21/23
06:59 06:59 06:59
Actual Weight 83.1 kg 84.4 kg
12/20/23 05:08
12/20/23 05:08
PT 18.4 Sec (11.4-14.6) H 12/17/23 13:04
INR 1.52 12/17/23 13:04
APTT 33.7 Sec (23.4-35.0) 12/17/23 13:04
Magnesium 2.4 mg/dl (1.6-2.3) H 12/20/23 05:08
Triglycerides 112 mg/dl (10-149) 12/15/23 05:03
LDL Cholesterol, Calc 41 mg/dl 12/15/23 05:03
VLDL Cholesterol, Calc 22 mg/dl (0-30) 12/15/23 05:03
HDL Cholesterol 40 mg/dl 12/15/23 05:03
Physical Exam
Constitutional: No acute distress
Cardiovascular: Rhythm & rate is regular
Respiratory: Wheeze Absent and Rhonchi Absent
GI: Soft
Neuro/Psych: Alert, Oriented and AO x 3
Data Reviewed
-
Date of Service: December 20, 2023
Medical Decision Making: Reviewed Test Results
EKG: Report Reviewed by me
Labs: Labs Reviewed by me
--- NOTE | 2023-12-20 16:06 | PTCARENOTE ---
VS obtained, assessment stable. Patient remains oob in chair, dozing intermittently.
[2023-12-20 17:23] LABS: Glucose - Point of Care 171 mg/dl (70-99)
[2023-12-20] MEDS: ROXICODONE 2.5 MG PO (17:26)
[2023-12-20 21:10] LABS: Glucose - Point of Care 181 mg/dl (70-99)
[2023-12-21] VITALS (44 sets, daily range): BP systolic 84–175; BP diastolic 49–85; PULSE 81–86; O2SAT 95; BMI 27.5
--- NOTE | 2023-12-21 | PTCARENOTE ---
pt having back pain and uncomfortable, flexiril given . no other change in assessment .
--- NOTE | 2023-12-21 00:26 | PTCARENOTE ---
assumed care of patient @ 1900. received pt sitting in chair, AOX3. VSS on RA. no c/o dizzyness/lightheaded. NSR on tele, +pulses -E. L arm AV fistula with good bruit and thrill. lungs clear, diminished on RA satting mid 90s. working with IS ~ 1000.
Belly soft, normactive, nontender. oliguric. surgical sites CDI. B/l knee and heel dressings changed per orders. pt resting comfortably with call joiner within reach .
[2023-12-21 03:17] LABS: Hematocrit 23.9 % (39.0-52.0); Hemoglobin 7.7 g/dL (13.0-18.0); Mean Corp Hgb Conc. 32.2 g/dL (33.0-37.0); Mean Corpuscular Hgb 29.7 pg (27.0-31.0); Mean Corpuscular Volume 92.3 fL (80.0-94.0); Mean Platelet Volume 9.9 fL (7.4-10.4); Platelet Count 136 10^3/uL (130-400); Red Blood Cell Count 2.59 10^6/uL (4.70-6.10); Red Cell Dist. Width 18.1 % (11.5-14.5); White Blood Cell Count 10.6 10^3/uL (4.8-10.8)
--- NOTE | 2023-12-21 03:47 | W.PN.CT ---
Documented by User: Hardik Cedeno PA-C 12/21/23 05:48
Today's Communication / Plan
-
Plan:
-No major issues overnight. Hemodynamically and neurologically intact
-Had orthostatic hypotension on POD#1. BP soft/labile postop
-Weaned off of Levophed @ 0300 on 12/18. Remains on Midodrine
-Received HD on Sunday 12/17, got 1u PRBC with HD. HD QMWF. Nephrology following
-HD today, will transfuse 1u PRBC with HD, h/h 7.7/23.9
-Wean off of Midodrine today if BP permits
-Na+ 128 today, was 131 yesterday, likely d/t hypervolemia
-Monitor electrolytes, replete ca++
-On ASA and Plavix; Augment for left heel osteomyelitis. Amiodarone and BB on hold
-F/u small right apical ptx, appears tiny and slightly improved on my assessment. F/U official report
-OOB into chair/Ambulate as tolerated
-Encourage use of IS
-No temporary PW
-D/C cordis after HD
-Home likely tomorrow
Assessment / Plan
-
Assessment:
s/p CABG x 3 (JASON to LAD, GSV to D, GSV to RPDA) by Dr. Denny, 12/17/23, POD #4
NTEMI/systolic CHF 06/20 �
Multivessel CAD
s/p PCI 23�
ERSD on HD (MWF)�
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
L 1 and 2nd toe amputation�
Left heel osteomyelitis (on chronic Augmentin)
HTN�
HLD�
Cat ext W/IOL�
Acute postop blood loss on chronic anemia (transfused 2u PRBC)
Acute on chronic thrombocytopenia (stable without active bleed)
Acute postop hypovolemia
Acute postop orthostatic hypotension
Acute postop small right apical ptx
Discussed patient care with: Cardiology, Nursing, Respiratory Therapy, Pharmacy and Care Team
Subjective
Procedure
CABG x 3 (JASON to LAD, GSV to D, GSV to RPDA) by Dr. Denny, 12/17/23
-
Date of Service: December 21, 2023
Pt c/o mild incisional pain, otherwise feels well
Objective Data
-
Lab Results
12/21/23 03:09
PT 18.4 Sec (11.4-14.6) H 12/17/23 13:04
INR 1.52 12/17/23 13:04
APTT 33.7 Sec (23.4-35.0) 12/17/23 13:04
Vital Signs
Vital Signs
Temp Pulse Resp BP Pulse Ox
98.9 F 75 16 109/66 92
12/20/23 23:00 12/20/23 23:31 12/20/23 23:00 12/20/23 23:05 12/20/23 23:00
CT Intake/Output/Weight
12/20/23 12/20/23 12/21/23
06:59 18:59 06:59
Intake Total 480 / 513.6 340 / 390 50 / 390
Output Total 50 / 50
Balance 430 / 463.6 340 / 390 50 / 390
SaO2: 92 (RA)
Physical Exam
-
General: Awake, Oriented and AOx3
Cardiovascular: Regular rate & rhythm, No Rub and No Gallop
Respiratory: Decreased Breath Sounds (at bases, otherwise clear)
Sternum: Stable
Incision: Clean, Dry, Intact and Dressing Intact
Extremities: Other (+trace edema)
Data Reviewed
-
Lab Results: Results Reviewed
Medications: Active Meds Reviewed
Chest X-Ray: Report Reviewed and Image Reviewed
ECG: Report Reviewed and Image Reviewed

Documented by User: LYNETTE Marquez 12/21/23 12:59
Assessment / Plan
-
Assessment:
s/p CABG x 3 (JASON to LAD, GSV to D, GSV to RPDA) by Dr. Denny, 12/17/23, POD #4
NTEMI/systolic CHF 06/20 �
Multivessel CAD
s/p PCI 23�
ERSD on HD (MWF)�
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
L 1 and 2nd toe amputation�
Left heel osteomyelitis (on chronic Augmentin)
HTN�
HLD�
Cat ext W/IOL�
hyponatermia
Hyperkalemia 2/2 ESRD
Acute postop blood loss on chronic anemia (transfused 2u PRBC)
Acute on chronic thrombocytopenia (stable without active bleed)
Acute postop hypovolemia
Acute postop orthostatic hypotension
Acute postop small right apical ptx
[2023-12-21 03:51] LABS: Blood Urea Nitrogen 77 mg/dl (9-20); Carbon Dioxide 23 mmol/L (22-30); Chloride 87 mmol/L (98-107); Estimated Creatinine Clearance 8 ml/min; Glucose 178 mg/dl (70-99); Magnesium 2.6 mg/dl (1.6-2.3); Potassium 6.6 mmol/L (3.5-5.1); Sodium 128 mmol/L (135-145); eGFR 4.73
--- NOTE | 2023-12-21 04:00 | PTCARENOTE ---
labs drawn and sent , pt resting comfortably, no change in assessment
[2023-12-21] MEDS: EMLA CREAM 5 GRAM TOPICAL (06:18)
[2023-12-21] MEDS: TYLENOL PO (06:22)
[2023-12-21] MEDS: ProAmatine 10 MG PO ×2 (07:45→13:45)
--- NOTE | 2023-12-21 08:15 | PTCARENOTE ---
Assumed care of patient. Walking rounds completed with previous RN. Pt assessed while he was lying in bed receiving HD. Pt alert and oriented x4. Pt rates sternal and neck pain 5/10. Denies nausea and shortness of breath. NSR on tele with rates in
the 70s. BP stable 135/78. Heart tones audible. Bilateral radial and DP pulses palpable. Lower extremity +1 edema. POX 100% on 1L NC, titrated to RA, 94%. Lungs diminished in the bases. IS encouraged-1000mL achieved. No cough noted. Abdomen soft,
nontender. +BS. Oliguric, on HD, no urine at this time. Left forearm fistula accessed for HD. Right IJ cordis intact. Right AC PIV intact. Sternal incision covered with Aquacel-CDI. Old chest tube sites with sutures intact, MANAGER COSTING. Left SVG harvest
NICHOLAS. B/L abrasions covered, dressings CDI. B/l heels covered, dressings CDI. See MAR for medication administration. See worklist for complete nursing assessment. Plan of care reviewed and patient in agreement. Pt excited to 'get moving' today.
[2023-12-21] MEDS: LIDOCAINE 4% PATCH TOPICAL ×2 (08:40→13:46)
[2023-12-21] MEDS: NEURONTIN 100 MG PO ×3 (08:40→21:14)
[2023-12-21] MEDS: PROTONIX 40 MG PO (08:40)
[2023-12-21] MEDS: LIPITOR 40 MG PO (08:40)
[2023-12-21] MEDS: VITAMIN D3 (cholecalciferol) 25 MCG PO (08:40)
[2023-12-21] MEDS: FLUSH (NSS) 1 FLUSH IV (08:41)
--- NOTE | 2023-12-21 09:38 | CM ---
dc plans remain home when medically stable with f/u visit fro the ct transitional care nurse
[2023-12-21] MEDS: RENVELA 800 MG PO ×3 (11:54→21:14)
[2023-12-21] MEDS: SENOKOT-S 1 TABLET PO (11:54)
[2023-12-21] MEDS: NEPHROCAP 1 CAPSULE PO (11:54)
[2023-12-21] MEDS: LOW STRENGTH ASPIRIN 81 MG PO (11:54)
[2023-12-21] MEDS: B COMPLEX w/VITAMIN C 1 CAPLET PO (11:54)
[2023-12-21] MEDS: CALCIUM CHLORIDE 10% SYRINGE 60 MG IV (11:54)
[2023-12-21] MEDS: BACTROBAN 2% OINTMENT 1 APPLIC NASAL (11:55)
[2023-12-21] MEDS: PLAVIX 75 MG PO (11:55)
[2023-12-21] MEDS: AUGMENTIN 875 MG/125 MG 1 TABLET PO ×2 (11:55→19:58)
--- NOTE | 2023-12-21 12:00 | PTCARENOTE ---
Pt reassessed. Pt resting in bed after dialysis. NSR on tele with rates in the 80s. BP stable 118/63. POX 94% on 0.5L. Surgical sites stable. Left forearm fistula dressing intact. No other acute changes from previous assessment.
[2023-12-21 12:05] LABS: Glucose - Point of Care 119 mg/dl (70-99)
--- NOTE | 2023-12-21 12:06 | W.PN.CD ---
Addendum entered and electronically signed by Rudy Sharp MD 12/21/23 14:23:
I saw and examined the patient.
The FRAME BUILDER's note was reviewed and I agree with the note.
Comment: He feels tired but improving. He denies sob and pain at incision improving. RRR, s1/2 no m/r/g lungs cta Continue post op care plan below.
Original Note:
Today's Communication / Plan
-
OOB to ambulate later today since just finished HD.
continue medical therapy.
Impression / Plan
-
BACKGROUND: 43 yo [place] male with coronary artery disease status post mid LAD stent from 08/2022 and 05/2023, hypertension, diabetes type 2, dyslipidemia, diabetic neuropathy, diabetic retinopathy, osteomyelitis to the heel, and end-stage
renal disease on dialysis, who presents with presyncope.
Multivessel coronary artery disease:
-now s/p CABG x 3 (JASON to LAD, GSV to D, GSV to RPDA), Dr. Chacon 12/17/23.
-hemodynamically stable.
-just finished HD now.
-PT/OT, ambulate.
Hypotension: off pressors.
-stable on midodrine, CTS attempting to ween.
Anemia: acute post op on chronic.
-consider PRBC with HD...
-also chronic thrombocytopenia.
ESRD on HD: per nephrology.
-just completed HD now.
HLD: continue statin, LDL 41.
Type II DM: Hgba1c 6.1%.
Osteomyelitis: heel.
-some non-adherence to amoxicillin due to cost.
Former smoker, continued cessation recommended
SUBJECTIVE:
awake, denies cardiac complaints.
just finished HD, fatigued.
Physical Exam
Vital Signs/Labs
Vital Signs
Temp Pulse Resp BP Pulse Ox
97.9 F 79 16 175/83 91
12/21/23 09:31 12/21/23 09:31 12/21/23 09:31 12/21/23 09:31 12/21/23 08:45
12/20/23 12/21/23 12/22/23
06:59 06:59 06:59
Actual Weight 84.4 kg 87 kg
12/21/23 03:09
12/21/23 03:09
PT 18.4 Sec (11.4-14.6) H 12/17/23 13:04
INR 1.52 12/17/23 13:04
APTT 33.7 Sec (23.4-35.0) 12/17/23 13:04
Magnesium 2.6 mg/dl (1.6-2.3) H 12/21/23 03:09
Triglycerides 112 mg/dl (10-149) 12/15/23 05:03
LDL Cholesterol, Calc 41 mg/dl 12/15/23 05:03
VLDL Cholesterol, Calc 22 mg/dl (0-30) 12/15/23 05:03
HDL Cholesterol 40 mg/dl 12/15/23 05:03
Physical Exam
Constitutional: No acute distress
EENT: Anicteric and Moist mucous membranes
Cardiovascular: Rhythm & rate is regular
Respiratory: Respiratory effort normal and Lungs clear to auscul.
GI: Soft, Non tender and Normal bowel sounds
Neuro/Psych: AO x 3
Other: Skin (warm, dry)
Data Reviewed
-
Date of Service: December 21, 2023
Medical Decision Making: Reviewed Test Results
EKG: Tracing Personally Visualized and interpreted
Echo: Report Reviewed by me
X-Ray/CT/US/MRI/NUC/PET: Report Reviewed by me
Labs: Labs Reviewed by me
[2023-12-21] MEDS: NOVOLOG FLEXPEN-MODERATE RESISTANCE SC ×2 (12:10)
--- NOTE | 2023-12-21 12:13 | W.PN.NEPH.HD ---
Assessment
-
seen on HD no complaints. VSS, access ok
transfused on HD
Progress Note - Hemodialysis
-
Date of Service: December 21, 2023
Duration: 30 minutes and 3 hours
Potassium Bath: 2
Calcium Bath: 2.5
Opti-Dialyzer: 160
Ultrafiltration: Other (3kg)
Blood Flow: 400
Dialysate Flow: 600
Heparin: no
EPO: no
--- NOTE | 2023-12-21 12:47 | PN.CDI ---
CDI
- -
CDI:
Physician Documentation Request
Admit Date: 12/14/23 16:35
Dear Doctor Oswaldo,
12/16 patient underwent CABG x 3.
Recent sodium results:
Laboratory Tests
12/18/23 12/19/23 12/20/23
03:10 02:59 05:08
Sodium 138 133 L 131 L
12/21/23
03:09
Sodium 128 L
Could you please provide a diagnosis that supports the above lab abnormalities and additional evaluation/ monitoring:
Hyponatremia
Abnormal lab value clinically insignificant
Other
Use of terms such as suspected, likely, concern for, or probable (associated with a specific diagnosis that is being evaluated, monitored, or treated as if it exists) are acceptable and can be coded in the inpatient setting, when documented at the
time of discharge.
Thank you,
Merced Rodriguez RN, BSN
CDI Specialist
tiger text
Please use your independent medical judgment in providing your response.
--- NOTE | 2023-12-21 12:51 | PN.CDI ---
CDI
- -
CDI:
Physician Documentation Request
Admit Date: 12/14/23 16:35
Dear Doctor Oswaldo,
12/16 patient underwent CABG x 3.
Recent potassium results:
Laboratory Tests
12/20/23 12/21/23
05:08 03:09
Potassium 4.8 6.6 H* D
Could you please provide a diagnosis that supports the above abnormalities and additional evaluation/ monitoring :
Hyperkalemia
Abnormal lab value clinically insignificant
Other
Use of terms such as suspected, likely, concern for, or probable (associated with a specific diagnosis that is being evaluated, monitored, or treated as if it exists) are acceptable and can be coded in the inpatient setting, when documented at the
time of discharge.
Thank you,
Merced Rodriguez RN, BSN
CDI Specialist
tiger text
Please use your independent medical judgment in providing your response.
[2023-12-21] MEDS: TYLENOL 1000 MG PO ×2 (13:45→21:14)
[2023-12-21] MEDS: NSS IV (13:45)
--- NOTE | 2023-12-21 16:25 | PTCARENOTE ---
Pt reassessed. VSS. NSR on tele with rates in the 80s. BP stable 111/63. POX 95% on RA. Surgical sites stable. Pt ambulated 40' in the liang, tolerated.
[2023-12-21] MEDS: NOVOLOG FLEXPEN-MODERATE RESISTANCE 3 UNITS SC (17:31)
[2023-12-21 17:32] LABS: Glucose - Point of Care 213 mg/dl (70-99)
[2023-12-21] MEDS: ProAmatine PO (17:47)
[2023-12-21] MEDS: SENOKOT-S PO (19:30)
--- NOTE | 2023-12-21 19:30 | PTCARENOTE ---
Assumed care of patient from day shift RN. AAO x 3 sitting up in chair. SR on monitor. Room air 97%, IS to 1000. Abdomen soft and non tender. Surgical sites c,d,i. Trace pedal edema appreciated. Ambulated in hallway and room with RN. Plan
for evening discussed
[2023-12-21 22:07] LABS: Glucose - Point of Care 251 mg/dl (70-99)
--- NOTE | 2023-12-21 22:28 | PTCARENOTE ---
HS blood sugar 251, pt admitted to snacking in room . Discussed with CT PA , no action at this time
[2023-12-21] MEDS: FLEXERIL 5 MG PO (22:39)
--- NOTE | 2023-12-21 23:09 | PTCARENOTE ---
Ambulated in room to bathroom to preform nightly ADLs . VSS. Assessment unchanged from prior. Muscle relaxer administered at patient request.
--- NOTE | 2023-12-21 23:45 | PTCARENOTE ---
Assumed care of pt from previous RN. Walking rounds completed. Pt resting OOB in the chair at this time. See worklist for full assessment. Call joiner within reach.
[2023-12-22] VITALS (7 sets, daily range): BP systolic 102–155; BP diastolic 52–81; PULSE 87; O2SAT 96; BMI 26.7
[2023-12-22 01:14] LABS: Glucose - Point of Care 304 mg/dl (70-99)
[2023-12-22] MEDS: NOVOLIN R 10 UNITS IV (01:43)
[2023-12-22 04:42] LABS: Ionized Calcium 1.09 mMOL/L (1.15-1.33)
--- NOTE | 2023-12-22 04:44 | W.PN.CT ---
Today's Communication / Plan
-
Plan:
-No major issues overnight. Hemodynamically and neurologically intact
-Had orthostatic hypotension on POD#1. BP soft/labile postop
-Weaned off of Levophed @ 0300 on 12/18
-Received dialysis with 1uPRBC yesterday 12/20. HD QMWF. Nephrology following
-Currently off Midodrine
-Na+ 133 up from 128 yesterday, likely d/t hypervolemia
-Monitor electrolytes, replete ca++
-On ASA and Plavix; Augment for left heel osteomyelitis. Amiodarone and BB on hold
-F/u small right apical ptx, F/U 2-view CXR
-OOB into chair/Ambulate/PT-OT F/U
-Encourage use of IS
-No temporary PW
-D/C cordis after repleting Ca++
-Home today
Assessment / Plan
-
Assessment:
s/p CABG x 3 (JASON to LAD, GSV to D, GSV to RPDA) by Dr. Denny, 12/17/23, POD #5
NTEMI/systolic CHF 06/20 �
Multivessel CAD
s/p PCI 23�
ERSD on HD (MWF)�
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
L 1 and 2nd toe amputation�
Left heel osteomyelitis (on chronic Augmentin)
HTN�
HLD�
Cat ext W/IOL�
hyponatermia
Hyperkalemia 2/2 ESRD
Acute postop blood loss on chronic anemia (transfused 2u PRBC)
Acute on chronic thrombocytopenia (stable without active bleed)
Acute postop hypovolemia
Acute postop orthostatic hypotension
Acute postop small right apical ptx
Discussed patient care with: Cardiology, Nursing, Respiratory Therapy, Pharmacy and Care Team
Subjective
Procedure
CABG x 3 (JASON to LAD, GSV to D, GSV to RPDA) by Dr. Denny, 12/17/23
-
Date of Service: December 22, 2023
Pt c/o mild incisional pain, otherwise feels well. Feels more energized since receiving 1u PRBC and dialysis
Objective Data
-
PT 18.4 Sec (11.4-14.6) H 12/17/23 13:04
INR 1.52 12/17/23 13:04
APTT 33.7 Sec (23.4-35.0) 12/17/23 13:04
Vital Signs
Vital Signs
Temp Pulse Resp BP Pulse Ox
98.8 F 83 16 155/81 95
12/22/23 04:30 12/22/23 04:30 12/22/23 04:30 12/22/23 04:30 12/22/23 04:30
CT Intake/Output/Weight
12/21/23 12/21/23 12/22/23
06:59 18:59 06:59
Intake Total 90 / 430 1100 / 1420 320 / 1420
Output Total 225 / 225
Balance 90 / 430 875 / 1195 320 / 1195
SaO2: 95 (RA)
Physical Exam
-
General: Awake, Oriented and AOx3
Cardiovascular: Regular rate & rhythm, No Murmurs, No Rub and No Gallop
Respiratory: Decreased Breath Sounds (at bases, otherwise clear)
Sternum: Stable
Incision: Clean, Dry, Intact and Dressing Intact
Extremities: Edema +1
Data Reviewed
-
Lab Results: Results Reviewed
Medications: Active Meds Reviewed
Chest X-Ray: Report Reviewed and Image Reviewed
ECG: Report Reviewed and Image Reviewed
[2023-12-22 04:46] LABS: Hemoglobin 8.5 g/dL (13.0-18.0); Mean Corp Hgb Conc. 32.7 g/dL (33.0-37.0); Mean Corpuscular Hgb 30.1 pg (27.0-31.0); Mean Corpuscular Volume 92.2 fL (80.0-94.0); Mean Platelet Volume 9.5 fL (7.4-10.4); Platelet Count 129 10^3/uL (130-400); Red Blood Cell Count 2.82 10^6/uL (4.70-6.10); Red Cell Dist. Width 17.2 % (11.5-14.5); White Blood Cell Count 9.4 10^3/uL (4.8-10.8)
--- NOTE | 2023-12-22 05:00 | PTCARENOTE ---
Previous assessment unchanged. Pt SR on the monitor. HR 70-80s. BP 155/81. Pt on RA. POX 95%. Denies pain at this time. Labs drawn and sent. Call joiner within reach.
[2023-12-22 05:29] LABS: Blood Urea Nitrogen 59 mg/dl (9-20); Calcium 8.8 mg/dl (8.4-10.2); Carbon Dioxide 26 mmol/L (22-30); Chloride 91 mmol/L (98-107); Estimated Creatinine Clearance 11 ml/min; Glucose 130 mg/dl (70-99); Magnesium 2.6 mg/dl (1.6-2.3); Potassium 4.7 mmol/L (3.5-5.1); Sodium 133 mmol/L (135-145); eGFR 6.94
[2023-12-22] MEDS: TYLENOL 1000 MG PO (06:27)
[2023-12-22] MEDS: CALCIUM CHLORIDE 10% SYRINGE 60 MG IV (07:33)
[2023-12-22] MEDS: NSS 500 IV (07:33)
--- NOTE | 2023-12-22 08:30 | PTCARENOTE ---
Addendum entered by Sia Pagan RN 12/22/23 10:11:
ABD bandages* not FRANK.
Original Note:
pt received from previous RN, oriented, OOB in chair. SR on the monitor, HR 80s. SBP 120s. trace LE edema, palpable pulses. pt on RA, 94% POX. lungs diminished. IS encouraged. pt abdomen s/n, denies n/v. diet tolerated well. per pt, voids in urinal
or bathroom. sternal Aquacel intact, chest tube dressing c/d/i. b/l Knee FRANK bandages in place. L knee incision NICHOLAS. L heel dressing c/d/i. RIJ cordis maintained. PIV. L arm fistula in place, +bruit, +thrill. see worklist for VS, I&O, and
assessment.
--- NOTE | 2023-12-22 08:47 | W.DCSUMMARY ---
Discharge Summary
Discharge Data
Date of Admission: 12/14/23
Date of Discharge: 12/22/23
Total time spent discharging patient (in min): 35
-
Pending Results: No
Hospital Course
Primary care physician:
Ginny Luis
Outpatient automatic oven operator:
Abhishek
Inpatient consultants:
cloth framer, CBC, anesthesia, nephrology
Procedures:
1. CABG x 3 (JASON to LAD, GSV to D, GSV to RPDA)
Primary Diagnosis:
1. multivessel coronary artery disease
Secondary Diagnoses:
1. End stage renal disease on hemodialysis
2. 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
3. Hypertension
4. Hyperlipidemia
5. Non-ST elevation myocardial infarction in 2011 and 2022
6. Acute postop blood loss on chronic anemia
7. Acute on chronic thrombocytopenia
8. Acute postop right apical pneumothorax
9. Left first and second toe amputation
10. Left heel osteomyelitis on chronic Augmentin
HPI: 43-year-old -Prydeinig male with known CAD an drior LAD stent, was scheduled for elective CABG on 12/17/[address] Sharan Chacon. Patient was admitted via the ED on 12/13 with weakness and fall causing him to miss regularly scheduled
dialysis treatment today at [facility].
Hospital course: Patient was admitted on 12/13 after weakness and a fall. He was taken to the CV OR 12/16 for a CABG with Dr. Chacno. He returned to the CVICU on Cardene insulin and Precedex. Cardene was weaned off and patient was started on
Levophed for hypotension. Precedex was weaned off and patient was extubated by 1700. On 12/17 postoperative day #1 patient was oliguric and Yeager was removed. On chest x-ray there was a small right apical pneumothorax that remained stable.
Patient was given 1 unit of packed red blood cells for hemoglobin of 8.4. Blood pressure was labile Levophed was weaned and midodrine was started, beta-blockers and Amio were initially held. On 12/18 postoperative day #2 chest tubes were removed
and post pull chest x-ray showed that the right apical pneumo was still stable. PT/OT was consulted. Midodrine continued for positive tilts. On 12/20 postoperative day #3 patient reported feeling better after dialysis. Beta-melanie still on hold.
On 12/20 patient received hemodialysis treatment and received an additional unit of packed red blood cells. Calcium was repleted beta-blockers were resumed and midodrine was weaned off. Patient ambulated with physical therapy. On 12/21
postoperative day #5, 2 view chest x-ray was performed and no ptx was observed. He was resumed on 25 mg of losartan along with his Lopressor. He was deemed stable for discharge and all his prescriptions were sent to his preferred pharmacy.
Home medication changes:
See below
Discharge Plan
-
Patient Disposition: Home (Routine Discharge)
Discharge Diagnosis/Procedures: CABG
Condition: Fair
Diet: Low Cholesterol and Diabetic, Carb Controlled
Activity: No strenuous activity
Driving Restrictions: Not until seen by your Dr
Bathing Restrictions: OK to Shower
Other Services: Cardiac Rehab
Activity Restrictions/Additional Instructions:
Wound Care Instructions
L lateral heel: clean with soap and water, silicone foam, change q other day and prn soilage.
Knees: clean with soap and water, smear of Honey gel, adaptic and dry dressing, change q other day and prn drainage.
Follow up with Carbonizer as scheduled.
ACTIVITY:
-No strenuous activity: no heavy lifting, pushing, pulling anything over 15 pounds for one month
-continue to use stairs as tolerated
DRIVING RESTRICTIONS:
-No driving for one month or until approved by your surgeon
WOUND CARE:
-Shower daily. Use soap & water.
-No lotions, creams or powders on incision area.
DIET:
-continue a low fat/low cholesterol diet.
-IF you are diabetic, continue carb controlled diet.
CARDIAC REHAB:
-Please make appointment to start in 5-6 weeks with your local hospital program. (See Cardiac Rehabilitation Discharge Booklet).
SPECIALTY INSTRUCTIONS:
-Weigh yourself daily. Call your physician for any weight gain/loss of 3 lbs overnight or 5 lbs in one week.
-REPORT any clicking noise or uneven appearance of your sternum to your surgeon immediately.
-If you smoke, you are instructed to quit. The [place] smoking hotline phone number is [phone]
Referrals:
CT Transitional Care Nurse [Outside] - in one to two days
(
The Cardiothoracic Transitional Care Nurse will call you to set up a visit in 1-2 days.)
Ed Weiss MD [Active] - 01/26/24 11:40 am (Your appointment on January 05, 2024 has been cancelled. )
German Borrero MD [Family Provider] - in four to six weeks
(Please make an appointment in four to six weeks.
)
Sharan Chacon MD [Active] - 01/19/24 2:00 pm
Additional Discharge Medication Instructions: Please stop taking your prasugrel and coreg
Please note that your losartan dose has change
follow your medication list exactly until directed otherwise by a doctor
Prescriptions:
New
cyclobenzaprine 10 mg Tablet
5 mg PO Q8HPRN PRN (Reason: muscle spasm) Qty: 20 0RF
clopidogrel 75 mg Tablet
75 mg PO DAILY Qty: 90 3RF
losartan 25 mg Tablet
25 mg PO DAILY Qty: 30 1RF
acetaminophen 325 mg Tablet
650 mg PO Q6HPRN PRN (Reason: mild pain,headache,temp >101F ) Qty: 0 0RF
pantoprazole 40 mg Tablet,Delayed Release (Dr/Ec)
40 mg PO DAILY Qty: 90 2RF
gabapentin 100 mg Capsule
100 mg PO TID Qty: 30 0RF
oxycodone 5 mg Tablet
2.5 mg PO Q4HPRN PRN (Reason: mild pain) Qty: 10 0RF
metoprolol succinate 25 mg Tablet Extended Release 24 Hr
12.5 mg PO DAILY Qty: 30 1RF
Continued
atorvastatin 40 mg Tablet
40 mg PO DAILY
Dialyvite 800 0.8 mg Tablet
1 tab PO DAILY
amoxicillin-pot clavulanate 875-125 mg Tablet
1 tab PO BID
cholecalciferol (vitamin D3) [Vitamin D3] 25 mcg (1,000 unit) Tablet
25 mcg PO DAILY
sevelamer carbonate 800 mg Tablet
800 mg PO TID
aspirin 81 mg Tablet,Delayed Release (Dr/Ec)
81 mg PO DAILY
lidocaine-prilocaine 2.5-2.5 % Cream
1 applic TOPICAL DAILYPRN PRN (Reason: before hemodialysis)
Held
Medical Marijuana
2 tab PO DAILYPRN PRN (Reason: mild pain)
Hold Instructions: Resume on 01/20/24.
Discontinued
carvedilol 25 mg Tablet
25 mg PO BID
losartan 100 mg Tablet
100 mg PO DAILY
prasugrel 10 mg Tablet
10 mg PO DAILY
Discharge Orders:
Discharge Patient (As Directed); Ordered 12/22/23
Ordered By: Pam Maya
Care Plan Goals
Care Plan Goals:
Problem: Readiness for enhanced knowledge related to diagnosis and treatment plan
Goal: Understand your diagnosis and treatment plan needs, including medications if applicable.
Instructions: Know your diagnosis, underlying causes and treatment plan options, including medications if applicable. Consult with your health care team to learn about your diagnosis and treatment plan, including medications if applicable.
Discharge Date and Time
Print Language: BULGARIAN
[2023-12-22] MEDS: PLAVIX 75 MG PO (09:38)
[2023-12-22] MEDS: AUGMENTIN 875 MG/125 MG 1 TABLET PO (09:38)
[2023-12-22] MEDS: LIPITOR 40 MG PO (09:38)
[2023-12-22] MEDS: LOW STRENGTH ASPIRIN 81 MG PO (09:38)
[2023-12-22] MEDS: PROTONIX 40 MG PO (09:38)
[2023-12-22] MEDS: B COMPLEX w/VITAMIN C 1 CAPLET PO (09:38)
[2023-12-22] MEDS: COZAAR 25 MG PO (09:38)
[2023-12-22] MEDS: VITAMIN D3 (cholecalciferol) 25 MCG PO (09:39)
[2023-12-22] MEDS: TOPROL XL 12.5 MG PO (09:39)
[2023-12-22] MEDS: NEPHROCAP 1 CAPSULE PO (09:39)
[2023-12-22] MEDS: RENVELA 800 MG PO (09:39)
[2023-12-22] MEDS: SENOKOT-S 1 TABLET PO (09:39)
[2023-12-22] MEDS: NEURONTIN 100 MG PO (09:39)
[2023-12-22] MEDS: NOVOLOG FLEXPEN-MODERATE RESISTANCE 1 UNITS SC (09:41)
[2023-12-22 09:42] LABS: Glucose - Point of Care 163 mg/dl (70-99)
[2023-12-22] MEDS: LIDOCAINE 4% PATCH TOPICAL (09:46)
--- NOTE | 2023-12-22 11:20 | W.PN.NEPH.PH ---
Today's Communication / Plan
-
dc
Assessment/Plan
-
Assessment:
ESRD on HD (~2 years, via [facility])
T2DM
HTN
CAD
osteomyelitis of heel
DLD
anemia
Plan:
for dc
remove cordis
next HD tomorrow at OP unit
-
-
Date of Service: December 22, 2023
CC / HPI / ROS
-
Chief Complaint:
End-stage renal disease
History of Present Illness:
tolerated HD yesterday
BP stable, dip after PT this am, but resolved
Status post CABG on 12/17/2023
Review of Systems:
no CP/SOB
Labs
-
Labs:
WBC 9.4 10^3/uL (4.8-10.8) 12/22/23 04:34
RBC 2.82 10^6/uL (4.70-6.10) L 12/22/23 04:34
Hgb 8.5 g/dL (13.0-18.0) L 12/22/23 04:34
Hct 26.0 % (39.0-52.0) L 12/22/23 04:34
Plt Count 129 10^3/uL (130-400) L 12/22/23 04:34
Sodium 133 mmol/L (135-145) L 12/22/23 04:34
Potassium 4.7 mmol/L (3.5-5.1) D 12/22/23 04:34
Chloride 91 mmol/L (98-107) L 12/22/23 04:34
Carbon Dioxide 26 mmol/L (22-30) 12/22/23 04:34
BUN 59 mg/dl (9-20) H 12/22/23 04:34
Creatinine 9.0 mg/dL (0.7-1.3) H* 12/22/23 04:34
eGFR 6.94 12/22/23 04:34
Glucose 130 mg/dl (70-99) H 12/22/23 04:34
Calcium 8.8 mg/dl (8.4-10.2) 12/22/23 04:34
Phosphorus 4.3 mg/dl (2.5-4.5) 12/14/23 13:55
Albumin 3.8 g/dl (3.5-5.0) 12/17/23 04:11
Physical Exam
-
Vital Signs:
Vital Signs
Temp Pulse Resp BP Pulse Ox
97.7 F 86 16 142/70 94
12/22/23 08:35 12/22/23 10:27 12/22/23 08:35 12/22/23 10:27 12/22/23 10:33
Cardiovascular:: Regular rate and rhythm
Respiratory:: Bilateral: Coarse
Lung Excursion:: Normal
Abdomen:: Nontender and Soft
Bowel Sounds:: Normal
Extremity Edema:: None: Bilateral:
--- NOTE | 2023-12-22 12:00 | PTCARENOTE ---
pt VSS, no changes in assessment. YVONNE joel dc'd, dressing c/d/i. nephew sleeping at bedside.
--- NOTE | 2023-12-22 13:35 | PTCARENOTE ---
pt discharged home, completed stairs w/ PT/OT. IV and tele dc'd, pt showered, dressed. wound care dressings changed. home medications reviewed. questions answered. pt left w/ all belongings via wheelchair w/ nephew.
== END 2023-12-22 13:15 | disposition home or self-care (01) | DRG 235 ==
LOC: CVICU 16:35
PROVIDERS: Anesthesiology; Clinical Nurse Specialist Family Health; Nurse Practitioner; Nurse Practitioner Gerontology; Nurse Practitioner Primary Care; Physician Assistant Surgical; Specialist; ADMITTING PHYSICIAN Internal Medicine; ATTENDING PHYSICIAN Thoracic Surgery (Cardiothoracic Vascular Surgery); CONSULT PHYSICIAN Internal Medicine Cardiovascular Disease; CONSULT PHYSICIAN Student in an Organized Health Care Education/Training Program; EMERGENCY PHYSICIAN Emergency Medicine; FAMILY PHYSICIAN Family Medicine; OTHER PHYSICIAN Internal Medicine Pulmonary Disease
PROC: 5A1D70Z Performance of Urinary Filtration, Intermittent, Less than 6 Hours Per Day (ICD-10-PCS; 2023-12-15)
PROC: 5A1221Z Performance of Cardiac Output, Continuous (ICD-10-PCS; 2023-12-17)
PROC: B24BZZ4 Ultrasonography of Heart with Aorta, Transesophageal (ICD-10-PCS; 2023-12-17)
PROC: 021109W Bypass Coronary Artery, Two Arteries from Aorta with Autologous Venous Tissue, Open Approach (ICD-10-PCS; 2023-12-17)
PROC: 02100ZC Bypass Coronary Artery, One Artery from Thoracic Artery, Open Approach (ICD-10-PCS; 2023-12-17)
PROC: 30233N1 Transfusion of Nonautologous Red Blood Cells into Peripheral Vein, Percutaneous Approach (ICD-10-PCS; 2023-12-17)
PROC: 06BQ4ZZ Excision of Left Saphenous Vein, Percutaneous Endoscopic Approach (ICD-10-PCS; 2023-12-17)
DX: I25.10 Atherosclerotic heart disease of native coronary artery without angina pectoris (principal); N18.6 End stage renal disease; M86.672 Other chronic osteomyelitis, left ankle and foot; I50.22 Chronic systolic (congestive) heart failure; I13.2 Hypertensive heart and chronic kidney disease with heart failure and with stage 5 chronic kidney disease, or end stage renal disease; I24.89 Other forms of acute ischemic heart disease; D62 Acute posthemorrhagic anemia; J98.11 Atelectasis; E87.1 Hypo-osmolality and hyponatremia; J95.811 Postprocedural pneumothorax; S80.212A Abrasion, left knee, initial encounter; S80.211A Abrasion, right knee, initial encounter; W18.39XA Other fall on same level, initial encounter; E11.22 Type 2 diabetes mellitus with diabetic chronic kidney disease; E11.69 Type 2 diabetes mellitus with other specified complication; D63.1 Anemia in chronic kidney disease; D69.6 Thrombocytopenia, unspecified; E87.5 Hyperkalemia; I16.0 Hypertensive urgency; E11.43 Type 2 diabetes mellitus with diabetic autonomic (poly)neuropathy; E11.319 Type 2 diabetes mellitus with unspecified diabetic retinopathy without macular edema; E78.00 Pure hypercholesterolemia, unspecified; I95.1 Orthostatic hypotension; E86.1 Hypovolemia; Y83.2 Surgical operation with anastomosis, bypass or graft as the cause of abnormal reaction of the patient, or of later complication, without mention of misadventure at the time of the procedure; I25.2 Old myocardial infarction; Z11.52 Encounter for screening for COVID-19; Z79.82 Long term (current) use of aspirin; Z79.899 Other long term (current) drug therapy; Z87.891 Personal history of nicotine dependence; Z89.422 Acquired absence of other left toe(s); Z91.148 Patient's other noncompliance with medication regimen for other reason; Z95.5 Presence of coronary angioplasty implant and graft; Z99.2 Dependence on renal dialysis
CPT/HCPCS: 93308; 36415; 71045; 71046; 71250; 80048; 80053; 80061; 81003; 81015; 82248; 82330; 82565; 82805; 82947; 82962; 83036; 83735; 84100; 84132; 84302; 84484; 84520; 85014; 85018; 85025; 85027; 85049; 85610; 85730; 86706; 86850; 86900; 86901; 86920; 87070; 87147; 87340; 87811; 93005; 93306; 93312; 93320; 93325; 93880; 93970; 94002; 96374; 96375; 97116; 97163; 97167; 97530; 97535; 99291; G0257; P9016; P9045; P9047; Q5106

== ENCOUNTER 2023-12-23 14:12 | Inpatient (IN) | payer OTHER, MEDICARE, SELFPAY ==
[2023-12-23] VITALS (35 sets, daily range): BP systolic 94–154; BP diastolic 49–82; BMI 27.9; BMI 27.5
[2023-12-23 11:36] LABS: Glucose - Point of Care 189 mg/dl (70-99)
[2023-12-23 12:02] LABS: % Basophils 0.3 % (0-2); % Eosinophils 0.8 % (0-6); % Immature Granulocytes 0.4 % (0-0.5); % Lymphocytes 7.9 % (20.5-51.1); % Monocytes 12.6 % (1.7-9.3); Absolute Eosinophils 0.1 10^3/uL (0-0.7); Absolute Immature Granulocytes 0.1 10^3/uL (0-0.05); Absolute Monocytes 1.5 10^3/uL (0.1-0.6); Absolute Neutrophils 9.3 10^3/uL (1.4-6.5); Hematocrit 23.7 % (39.0-52.0); Hemoglobin 7.9 g/dL (13.0-18.0); Mean Corp Hgb Conc. 33.3 g/dL (33.0-37.0); Mean Corpuscular Hgb 30.5 pg (27.0-31.0); Mean Corpuscular Volume 91.5 fL (80.0-94.0); Mean Platelet Volume 10.3 fL (7.4-10.4); Nucleated Red Blood Cells % 0 % (-); Platelet Count 155 10^3/uL (130-400); Red Blood Cell Count 2.59 10^6/uL (4.70-6.10); Red Cell Dist. Width 17.6 % (11.5-14.5)
[2023-12-23 12:04] LABS: Venous Blood Gas B.E. -3.7 mmol/L (-4 to +4); Venous Blood Gas O2 Sat % 91.4 %; Venous Blood Gas pCO2 49 mmHg (35-48); Venous Blood Gas pH 7.28 (7.32-7.43); Venous Blood Gas pO2 64 mmHg (30-50)
--- NOTE | 2023-12-23 12:05 | EDRN ---
Echo at bedside now for study.
[2023-12-23 12:11] LABS: INR 1.39; PT 17.1 Sec (11.4-14.6)
[2023-12-23 12:15] LABS: Lactic Acid 1.2 mmol/L (0.7-2.0)
[2023-12-23 12:27] LABS: ALT (SGPT) 21 U/L (0-50); AST (SGOT) 164 U/L (17-59); Alkaline Phosphatase 116 U/L (38-126); Blood Urea Nitrogen 88 mg/dl (9-20); Calcium 8.7 mg/dl (8.4-10.2); Carbon Dioxide 22 mmol/L (22-30); Chloride 87 mmol/L (98-107); Estimated Creatinine Clearance 8 ml/min; Glucose 159 mg/dl (70-99); Potassium 6.5 mmol/L (3.5-5.1); Sodium 128 mmol/L (135-145); Total Bilirubin 1.4 mg/dl (0.2-1.3); Total Protein 7.3 g/dl (6.3-8.2); eGFR 4.55
[2023-12-23 12:30] LABS: NT-proBNP > 27000 pg/ml; Troponin I 0.356 ng/ml
--- NOTE | 2023-12-23 12:32 | CON.CAR ---
Addendum entered and electronically signed by Keshav Francisco MD 12/23/23 14:40:
I saw and examined the patient.
The TAPPER HAND's note was reviewed and I agree with the note.
Comment: 43 y/o male with coronary artery disease status post mid LAD stent from 08/2022 and 05/2023, now s/p CABG x 3 12/17/23, hypertension, diabetes type 2, dyslipidemia, diabetic neuropathy, diabetic retinopathy, osteomyelitis to the heel,
end-stage renal disease on dialysis who was d/c'd from the hospital yesterday after bypass surgery and is back with weakness and lethargy and hypoxia (as low as 70's per ED physician).
I suspect his lethargy and hypoxia are likely secondary to medications and EKG changes are possibly related to hyperkalemia or pericarditis, however, he has no significant chest pain other than incision site.
-HD today repeat EKG tomorrow morning
-Echocardiogram completed and on [id number] comparison no significant change
Original Note:
Consultation
Consultation Request
Date/Time Consultation Requested: 12/23/23 1200
Date/Time Consultation Performed: 12/23/23 1215
Requesting Provider: Dr. Oliver
Performing Provider: Maria R OJEDA for Dr. Francisco
Reason for Consultation: Abnormal EKG, recent
Medical History
-
Chief Complaint: lethargy, hypoxia
History of Present Illness:
43 y/o male with coronary artery disease status post mid LAD stent from 08/2022 and 05/2023, now s/p CABG x 3 12/17/23, hypertension, diabetes type 2, dyslipidemia, diabetic neuropathy, diabetic retinopathy, osteomyelitis to the heel, end-stage renal
disease on dialysis who was d/c'd from the hospital yesterday after bypass surgery and is back with weakness and lethargy and hypoxia (as low as 70's per ED physician). At the time of my assessment, he is on O2 and is in no distress. He is answering
all questions and following commands and reports he is feeling better, but he still seems to have some periods of lethargy still. He had hypotension requiring midodrine last admit, which was weaned off prior to d/c.
Past Medical History
Past Medical History: CAD, HTN, Hypercholesterolemia and Renal Failure
Social History
Tobacco: Former Smoker
Family History
Family History: Reviewed & Not Pertinent
Allergies / Home Medications
Allergy/AdvReac Type Severity Reaction Status Date / Time
vancomycin Allergy chills Verified 12/23/23 11:25
�Medication �Instructions �Recorded �Confirmed �Type
amoxicillin 875 mg-potassium 1 tab PO BID Infection 12/08/23 12/23/23 History
clavulanate 125 mg tablet
atorvastatin 40 mg tablet 40 mg PO DAILY High Cholesterol 12/08/23 12/23/23 History
cholecalciferol (vitamin D3) 25 25 mcg PO DAILY Supplement 12/08/23 12/23/23 History
mcg (1,000 unit) tablet (Vitamin
D3)
sevelamer carbonate 800 mg tablet 800 mg PO TID REDUCE PHOSPHATE 12/08/23 12/23/23 History
vitamin B complex-vitamin C-folic 1 tab PO DAILY Supplement 12/08/23 12/23/23 History
acid 0.8 mg tablet (Dialyvite 800)
Medical Marijuana 2 tab PO DAILYPRN PRN mild pain 12/14/23 12/23/23 History
aspirin 81 mg tablet,delayed 81 mg PO DAILY Blood Clot 12/14/23 12/23/23 History
release Prevention/Tx
lidocaine-prilocaine 2.5 %-2.5 % 1 applic topical DAILYPRN PRN 12/14/23 12/23/23 History
topical cream before hemodialysis
acetaminophen 325 mg tablet 650 mg (2 x 325 mg) PO Q6HPRN PRN 12/22/23 12/23/23 Rx
mild pain,headache,temp >101F #0
tabs
clopidogrel 75 mg tablet 75 mg PO DAILY graft patentcy #90 12/22/23 12/23/23 Rx
tabs
cyclobenzaprine 10 mg tablet 5 mg (1/2 x 10 mg) PO Q8HPRN PRN 12/22/23 12/23/23 Rx
muscle spasm #20 tabs
gabapentin 100 mg capsule 100 mg PO TID post-operative pain 12/22/23 12/23/23 Rx
#30 caps
losartan 25 mg tablet 25 mg PO DAILY blood pressure #30 12/22/23 12/23/23 Rx
tabs
metoprolol succinate 25 mg 12.5 mg (1/2 x 25 mg) PO DAILY #30 12/22/23 12/23/23 Rx
tablet,extended release 24 hr tabs
oxycodone 5 mg tablet 2.5 mg (1/2 x 5 mg) PO Q4HPRN PRN 12/22/23 12/23/23 Rx
mild pain #10 tabs
pantoprazole 40 mg tablet,delayed 40 mg PO DAILY gi prophylaxis 12/22/23 12/23/23 Rx
release while on plavix #90 tabs
Review of Systems
-
History Source: Patient
All other systems: Negative unless noted
Neurological: Weakness and Other (lethargy)
Physical Exam
Vital Signs
Temp Pulse Resp BP Pulse Ox
99.7 F 72 21 106/58 78
12/23/23 11:26 12/23/23 12:15 12/23/23 12:15 12/23/23 12:15 12/23/23 11:35
Lab Results
12/23/23 11:47
12/23/23 11:47
Troponin I 0.356 ng/ml H* 12/23/23 11:47
[id number] Pept > 64208 pg/ml 12/23/23 11:47
Physical Exam
General: Well Developed and Well Nourished
HEENT: Normocephalic and Anicteric
Respiratory: Other (diminished to b/l bases; on O2 by NC)
Cardiac: Regular Rhythm
Skin: Warm and Dry
Neuro: AO x 3
Psych: Calm
Impression / Plan
-
Lethargy, weakness:
-in setting of hypoxia (which was severe with SPO2 in 70's), which has improved on O2. CT PE pending. CT head pending.
-may be medication related- taking Flexeril and oxy, which are new. Now holding.
-due for HD today
Abnormal EKG:
-ST elevations noted diffusely, suggestive of pericarditis
-echo with normal wall motion and EF
-no anginal chest pain, just incisional
-K+ is quite elevated and needs HD as above
ESRD on HD:
-nephrology consulted
CAD s/p CABG x 3 12/17/23:
-seems stable
-CT surgery on board
-ASA, Plavix, statin, BB
-he was on midodrine for hypotension on recent admit, but that was weaned off prior to d/c. Follow BP's.
Anemia:
-chronic, follow
DM2
hx Osteomyelitis
Data Reviewed
-
EKG: Tracing Personally Visualized and interpreted
Radiology: Report Reviewed by me (CXR 12/23/23: The lungs appear clear for portable AP technique. Cardiac silhouette size is enlarged with no evidence for pulmonary edema or pleural effusion. Mild elevation of the right hemidiaphragm.)
Medical Tests (Nuc Med, Echo etc): Report Reviewed by me (echo 12/18/23: Normal left ventricular systolic function. Concentric LVH Left ventricular ejection fraction is 55-60%. No significant valve abnormalities detected)
Labs: Labs Reviewed by me
--- NOTE | 2023-12-23 12:39 | ED.GENMED ---
History of Present Illness
General
Chief Complaint: Change in Mental Status
Source: patient and spouse
Exam Limitations: clinical condition
Time Seen by Provider: 12/23/23 11:41
History of Present Illness
History of Present Illness:
43-year-old male presents with lethargy hypoxia. Discharged yesterday after CABG. Per the he had some hypoxia when desaturate while in the hospital. Patient complains of no new chest pain. Typical postoperative pain no fever chills unusual
headache or other complaints
Past History
Past History
ED Past Medical History: CAD, HTN, Hypercholesterolemia, Other (End-stage renal disease) and Other (Osteomyelitis)
ED Past Surgical History: Cardiac and Other (Toe amputation)
Social History
Personal:
Living: with family
Phy Exam
Physical Exam
Physical Exam:
GENERAL: Alert but lethargic. Will answer questions and is oriented. However cognitively slightly slow.
EYE: Orbits normal.
NECK: Supple, no significant adenopathy.
ENT: Pharynx without erythema
CARDIAC: Regular rate and rhythm. Well-healing sternotomy scar
LUNGS: Some decreased effort. No rales rhonchi or wheezing
ABDOMEN: Soft, without focal tenderness or distention
NEUROLOGICAL: Alert and oriented , grossly non-focal
SKIN: Warm and dry, no rash or lesion, no discoloration, skin intact.
MUSCULOSKELETAL: Postoperative edema. Well-healing incisions
PSYCH: Normal and appropriate interaction.
Course
Orders/Labs/Results
Orders:
Orders
12/23/23 11:43
Electrocardiogram (*1) Stat
Reason for Study: Other
Other Reason for Exam: chest pain
Cardiac Monitoring- Treatment ONCE
EKG- Treatment ONCE
IV Insert/Care/Rem.- Treatment PRN
CR Chest Portable - 1 View Urgent
Comment:
Reason For Exam: hypoxia
Reason Study Needs to be Portable: Unable to Transport
12/23/23 11:47
Complete Blood Count/With Diff Urgent
Comprehensive Metabolic Panel Urgent
Lactic Acid Q4H
Comment: CANCEL 2nd LACTIC ACID IF 1st LACTIC ACID IS LESS THAN 2
NT-proBNP Urgent
PTT Urgent
Prothrombin Time Urgent
Troponin I Urgent
Venous Blood Gas Urgent
%Oxygen/Room Air: 6l
Blood Culture Q30M
MIREYA Source: Blood/Venous
Specimen Description:
Blood Culture Q30M
MIREYA Source: Blood/Venous
Specimen Description:
12/23/23 11:58
Echo Follow up Study W Dop Stat
Reason for Study: sob; hypoxia; abnormal EKG
Cardiology Consult: Keshav Francisco
12/23/23 12:12
CT Chest Pe Study Urgent
Comment:
Reason For Exam: Hypoxia
CT Head W/o Iv Contrast Urgent
Comment:
Reason For Exam: Change in mental status. Recent CABG
12/23/23 13:16
Dextrose 50%-Water [Dextrose 50% Syringe] 12.5 grams IV [id number] PRN
Dextrose 50%-Water [Dextrose 50% Syringe] 25 grams IV NOW STA
Insulin Human Regular [Novolin R] 5 units IV NOW STA
Sodium Zirconium Cyclosilicate [Lokelma] 10 gram PO NOW STA
12/23/23 13:38
Calcium Gluconate 1,000 mg IV NOW STA
12/23/23 13:41
Piperacillin/Tazo 4.5 Gram [Zosyn] 4.5 gram in 100 ml IV NOW
12/23/23 13:56
CARDIOLOGY CONSULT Routine
Consulting Provider: Keshav Francisco
Was physician already notified: Yes
Cardiothoracic Surgery Consult Routine
Consulting Provider: Ren Denny
Was physician already notified: Yes
NEPHROLOGY CONSULT Routine
Consulting Provider: Sameera Girard
Was physician already notified: Yes
12/23/23 13:57
INFECTIOUS DISEASE CONSULT Routine
Consulting Provider: Tete Reardon
Was physician already notified: Yes
12/23/23 13:59
Admit/Transfer Patient As Directed
Co-Sign Provider:
Level of Care: Inpatient admission
Assign to:: IMU- Intermediate Care
Physician / Group: Kelly
Diagnosis: Change in Mental Status, Pneumonia
Reason for Hospitalization: IV abx
Expected length of stay greater than two midnights?: Yes
ELOS- Estimated Length of Stay in days: 3
I certify the patient meets the requirements for IP care: Yes
12/23/23 14:02
Code Status As Directed
Resuscitation Status: Full Code
12/23/23 Dinner
2000 calorie (17 carb) Diabetic
At Your Request: Full Participation
Fluid Restriction: 1200 mL/day (40 oz)
Diabetic Diet: Cholesterol Lowering
Sodium, 2 Gram
Potassium, 2 Gram
12/23/23 15:36
Acetaminophen [Tylenol] 650 mg PO Q6HPRN PRN
Dextrose 50%-Water [Dextrose 50% Syringe] 12.5 grams IV [id number] PRN
Glucagon [GlucaGen] 1 mg IM PRN PRN
Lidocaine 2.5%/Prilocaine 2.5% [Emla Cream] 1 gram TOPICAL DAILYPRN PRN
12/23/23 15:36
Activity As Directed
Activity Level: Out of Bed- Chair
Bedside Glucose Monitoring As Directed
Frequency: AC&HS
Additional Instructions:: Change to q6h if pt on TPN, tube feeding or not eating
I&O [Intake/ Output] As Directed
Frequency: q12h
Vital Signs As Directed
Frequency: Per unit guidelines
Weight As Directed
Frequency: Daily
Oxygen Therapy [O2 Therapy] [RESP] Routine
Titrate/Wean O2 to maintain O2 sat greater than (%): 90
Pulse Ox/cont/shift [RESP] Routine
Quantity: 1
Ot Eval And Treat Routine
Pt Eval And Treat Routine
Activity Level: Out of Bed-Early Mobility
DX Deep Vein Thrombosis Video Routine
12/23/23 16:00
Doxycycline Hyclate [Vibramycin] 100 mg 0.9% Sodium Chloride 250 ml [Nss] 250 ml IV Q12H
Heparin 5,000 units SC Q8
Piperacillin/Tazo 2.25 Gram [Zosyn] 2.25 grams in 50 ml IV Q8H
12/23/23 16:30
Insulin Aspart Corrective Low [Novolog Flexpen-Low Resistance] See Protocol SC AC
12/23/23 17:30
Sevelamer Carbonate [Renvela] 800 mg PO MEALS
12/24/23 05:15
Basic Metabolic Panel IN AM
Complete Blood Count/No Diff IN AM
Magnesium IN AM
Phosphorus IN AM
12/24/23 06:00
EKG [Electrocardiogram (*1)] IN AM
Reason for Study: CAD
12/24/23 08:00
Aspirin Low Dose EC [Aspir Low (Enteric Coated)] 81 mg PO DAILY
Atorvastatin [Lipitor] 40 mg PO DAILY
Cholecalciferol (Vitamin D3) [VITAMIN D3 (cholecalciferol)] 25 mcg PO DAILY
Clopidogrel Bisulfate [Plavix] 75 mg PO DAILY
Metoprolol Xl [Toprol Xl] 12.5 mg PO DAILY
Pantoprazole [Protonix] 40 mg PO DAILY
Vitamin B Complex with C [B COMPLEX w/VITAMIN C] 1 caplet PO DAILY
Abnormal Lab Results
12/23/23 12/23/23
11:35 11:47
WBC 12.0 H 10^3/uL
(4.8-10.8)
RBC 2.59 L 10^6/uL
(4.70-6.10)
Hgb 7.9 L g/dL
(13.0-18.0)
Hct 23.7 L %
(39.0-52.0)
RDW 17.6 H %
(11.5-14.5)
Abs Immat Gran (auto) 0.1 H 10^3/uL
(0-0.05)
Absolute Neuts (auto) 9.3 H 10^3/uL
(1.4-6.5)
Absolute Lymphs (auto) 1.0 L 10^3/uL
(1.2-3.4)
Absolute Monos (auto) 1.5 H 10^3/uL
(0.1-0.6)
Neutrophils % 78.0 H %
(42.2-75.2)
Lymphocytes % 7.9 L %
(20.5-51.1)
Monocytes % 12.6 H %
(1.7-9.3)
PT 17.1 H Sec
(11.4-14.6)
APTT 43.0 H Sec
(23.4-35.0)
VBG pH 7.28 L
(7.32-7.43)
VBG pCO2 49 H mmHg
(35-48)
VBG pO2 64 H mmHg
(30-50)
Sodium 128 L mmol/L
(135-145)
Potassium 6.5 H* D mmol/L
(3.5-5.1)
Chloride 87 L mmol/L
(98-107)
BUN 88 H mg/dl
(9-20)
Creatinine 12.8 H* mg/dL
(0.7-1.3)
Glucose 159 H mg/dl
(70-99)
Total Bilirubin 1.4 H mg/dl
(0.2-1.3)
AST 164 H U/L
(17-59)
Troponin I 0.356 H* ng/ml
POC Glucose 189 H mg/dl
(70-99)
12/23/23 11:47
12/23/23 11:47
Vital Signs
Initial and Last Documented VS:
Initial Vital Signs
Temp Pulse Resp BP Pulse Ox
99.7 F 74 20 110/52 86
12/23/23 11:26 12/23/23 11:26 12/23/23 11:26 12/23/23 11:26 12/23/23 11:26
Last Documented Vital Signs
Temp Pulse Resp BP Pulse Ox
98.1 F 79 14 159/85 95
12/26/23 11:20 12/26/23 11:20 12/26/23 11:20 12/26/23 11:20 12/26/23 11:20
MDM/Problems Addressed
Differential Diagnosis Includes:
Multiple potential etiologies for hypoxia and mental status change. This would include primary hypoxic issue causing mental status change. CHF, pericardial effusion, sepsis, pneumothorax, pulmonary emboli. As for the reverse where the lethargy is
causing the hypoxia as he is not making a huge effort respiratory bardales would be medications sepsis primary neurologic issue. Upon immediate evaluation cardiothoracic surgery, cardiology and nephrology were immediately typed in further help.
Echocardiogram was done stat which did not show acute changes despite EKG changes. Chest x-ray is relatively unremarkable he has not elevated potassium mild hyponatremia. Renal failure. Mild leukocytosis. Nephrology was contacted for dialysis.
PE study is occurring at this time. Nephrology was also involved with the decision for dye. Hospitalist then looped in further involvement. Definitely is improved on oxygen with good pulse oxes.
*Radiology
Radiology exam reviewed: preliminary read by ED provider (Mild vascular congestion)
*Pulse Oximetry
Patient hypoxic: yes
*EKG
Interpreted by ED Provider?: Yes
Interpretation: abnormal
Comparison EKG: changes noted
Heart Rate: 73
Rate: normal
Rhythm: sinus
Doland: normal axis
Interval: normal interval
QRS Pattern: normal QRS
Ischemia: ST elevation (Elevation anterior and inferior)
*Pad Hand Interpretation
Rate: normal
Interpretation: normal
Heart Rate: 80
Rhythm: sinus
*Critical Care Note
Total Time (30-74mins, 75-104mins- exclusive of procedures): 45
ED Attending Note
-
Portions of this chart may have been created with voice recognition software.� Occasional wrong word or��sound alike� substitutions may have occurred due to the inherent limitations of voice recognition software.
Discharge Plan
Departure
Patient Disposition: Admit
Date of Disposition: 12/23/23
Time of Disposition: 12:33
Presentation/result/management discussed w/ accepting MD/DO: Cardiology/nephrology/car
Discharge Problem:
Toxic encephalopathy, Hypoxia, Atelectasis versus pneumonia, Recent CABG
Interventions
Interventions:
*Risk Screen - Suicide Last Done: 12/23/23 11:26
*General Assessment Last Done: 12/23/23 11:26
*Neglect/Abuse Screening Last Done: 12/23/23 11:26
ED- Fall Risk Assessment Last Done: 12/23/23 15:47
*ED COVID-19 Vaccine History Last Done: 12/23/23 11:26
*Nursing Disposition Last Done: 12/23/23 15:47
ED- Pulmonary Assessment Last Done: 12/23/23 12:55
ED- Neurological Assessment Last Done: 12/23/23 12:55
ED- Cardiac Assessment Last Done: 12/23/23 12:55
Discharge Date and Time
Discharge Date/Time: 12/23/23 15:47
--- NOTE | 2023-12-23 13:14 | CONSULT.CT ---
Consultation
-
Date/Time Consultation Requested: 12/23/23
Date/Time Consultation Performed: 12/23/23
Requesting Provider: ED
Performing Provider: Nadja Rios PA-C
Reason for Consultation: recent CABG; readmit for lethargy/falls
Patient History
Physicians
Family Physician: German Borrero
Outpatient Lead Die Molder: Abhishek ([facility])
Inpatient Lead Die Molder: VENITA/Nolan
History of Present Illness
Pt is a 43y/oM well known to our service who is s/p CABG x3 (HOLT-LAD, SVG-D1, SVG-PDA) on 12/17/[address] Sharan Chacon. He had been planned for elective surgery, but was admitted through the ED on 12/13 due to missed dialysis/weakness and a fall.
He proceeded to the OR 12/16 as scheduled without periop complications. He required low dose levophed post op for approx 48hrs, and then PO midodrine for another 2 days. He was transfused 1 PRBC immediately postop and another 1 PRBC on POD #1 and a
third on POD#4. He had some orthostasis which resolved by POD#3. PT/OT was consulted to assist with ambulation & he was discharged to home on POD#5 (12/21).
Per patients he has been lethargic at home and fell out of bed last night and again this morning. She states he only got 1/2 tab of his pain medication last night and then again 1/2 tab this morning. When he arrived at the ED this morning he
was noted to be lethargic with O2 sats in the 70s without respiratory distress. Sats have improved with supplemental O2. EKG in ED with ST elevations in anterior leads and inferior leads. Cardiology at bedside when I arrived, just completed stat
echo without wall motion abnormalities. Pt denies any chest pain.
For my assessment, patient is conversant and oriented, but falling asleep during conversation. vitals remained stable.
Past Medical History
multivessel coronary artery disease s/p CABG x 3 (JASON to LAD, GSV to D, GSV to RPDA)
End stage renal disease on hemodialysis
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
Hypertension
Hyperlipidemia
Non-ST elevation myocardial infarction in 2011 and 2022
Acute postop blood loss on chronic anemia
Acute on chronic thrombocytopenia
Acute postop right apical pneumothorax
Left first and second toe amputation
Left heel osteomyelitis on chronic Augmentin
Past Surgical History
CABG x3 (HOLT-LAD, SVG-D1, SVG-PDA) with LLE EVH by Dr. Sharan Chacon on 12/17/23
Family History
Mother: N/A
Father: N/A
Social History
Alcohol: Occasional
Drug: Marijuana ('medical' listed in home meds)
Tobacco: Former Smoker (quit 2 years ago)
Personal:
Living: With Spouse
Allergies
Allergy/AdvReac Type Severity Reaction Status Date / Time
vancomycin Allergy chills Verified 12/23/23 11:25
Home Medications
�Medication �Instructions �Recorded �Confirmed �Type
amoxicillin 875 mg-potassium 1 tab PO BID Infection 12/08/23 12/23/23 History
clavulanate 125 mg tablet
atorvastatin 40 mg tablet 40 mg PO DAILY High Cholesterol 12/08/23 12/23/23 History
cholecalciferol (vitamin D3) 25 25 mcg PO DAILY Supplement 12/08/23 12/23/23 History
mcg (1,000 unit) tablet (Vitamin
D3)
sevelamer carbonate 800 mg tablet 800 mg PO TID REDUCE PHOSPHATE 12/08/23 12/23/23 History
vitamin B complex-vitamin C-folic 1 tab PO DAILY Supplement 12/08/23 12/23/23 History
acid 0.8 mg tablet (Dialyvite 800)
Medical Marijuana 2 tab PO DAILYPRN PRN mild pain 12/14/23 12/23/23 History
aspirin 81 mg tablet,delayed 81 mg PO DAILY Blood Clot 12/14/23 12/23/23 History
release Prevention/Tx
lidocaine-prilocaine 2.5 %-2.5 % 1 applic topical DAILYPRN PRN 12/14/23 12/23/23 History
topical cream before hemodialysis
acetaminophen 325 mg tablet 650 mg (2 x 325 mg) PO Q6HPRN PRN 12/22/23 12/23/23 Rx
mild pain,headache,temp >101F #0
tabs
clopidogrel 75 mg tablet 75 mg PO DAILY graft patentcy #90 12/22/23 12/23/23 Rx
tabs
cyclobenzaprine 10 mg tablet 5 mg (1/2 x 10 mg) PO Q8HPRN PRN 12/22/23 12/23/23 Rx
muscle spasm #20 tabs
gabapentin 100 mg capsule 100 mg PO TID post-operative pain 12/22/23 12/23/23 Rx
#30 caps
losartan 25 mg tablet 25 mg PO DAILY blood pressure #30 12/22/23 12/23/23 Rx
tabs
metoprolol succinate 25 mg 12.5 mg (1/2 x 25 mg) PO DAILY #30 12/22/23 12/23/23 Rx
tablet,extended release 24 hr tabs
oxycodone 5 mg tablet 2.5 mg (1/2 x 5 mg) PO Q4HPRN PRN 12/22/23 12/23/23 Rx
mild pain #10 tabs
pantoprazole 40 mg tablet,delayed 40 mg PO DAILY gi prophylaxis 12/22/23 12/23/23 Rx
release while on plavix #90 tabs
Review of Systems
-
General: Reports Fatigue
HEENT: Reports No Symptoms
Respiratory: Denies SOB or SANTANA
Cardiac: Denies Chest Pain
Abdomen/GI: Reports No Symptoms
: Reports No Symptoms
Neurological: Reports Weakness
Physical Exam
Vital Signs
Temp 99.7 F 12/23/23 11:26
Temp route: Oral 12/23/23 11:26
Pulse 72 12/23/23 12:15
Resp Rate 21 12/23/23 12:15
Blood pressure 106/58 12/23/23 12:15
MAP (cuff-Coral Monitor) 73 12/23/23 12:15
SaO2 78 12/23/23 11:35
Oxygen Mode of Delivery Room air 12/23/23 11:26
Actual Weight 88.2 kg 12/23/23 11:24
Body Mass Index (BMI) 27.9 12/23/23 11:24
Labs
12/23/23 11:47
12/23/23 11:47
PT 17.1 Sec (11.4-14.6) H 12/23/23 11:47
APTT 43.0 Sec (23.4-35.0) H 12/23/23 11:47
Troponin I 0.356 ng/ml H* 12/23/23 11:47
Cqc-N-Fyswqppoajc Pept > 94516 pg/ml 12/23/23 11:47
Exam
General: No Apparent Distress and Other (somnolent)
HEENT: Normocephalic and Moist Mucous Membranes
Respiratory: Clear; Negative Wheezes, Crackles or Rhonchi
Cardiac: Regular Rhythm; Negative Murmur, Rub or Gallop
GI: Soft
Rectal: Deferred by Provider
Skin: Warm, Dry and Other (MSI c/d/i; LLE incisions with dermabond c/d/i, no palpable LLE hematoma)
Neuro: Oriented
Extremities: Lower Level Edema (trace LLE edema)
Psych: Calm
Assessment / Plan
-
recent CABG x3 12/17/23
weakness/lethargy with hypoxia on arrival
EKG with ST elevations in anterior & inferior leads--stat Echo with normal LVEF & no wall motion abnormalities
surgical incision sites c/d/i
CT head negative in ED, PE study pending
agree with admit to medicine service for full workup of lethargy & weakness/falls
hold all narcs
HD per nephrology (missed outpatient HD today)
Cards following
Data Reviewed
-
EKG: Tracing Personally Visualized and interpreted and Discussed with Physician
Echo: Report Reviewed by me and Discussed with Physician
CT Scan: Report Reviewed by me
Labs: Labs Reviewed by me
--- NOTE | 2023-12-23 14:07 | HPS.HSE ---
Family Physician
-
Family Physician: German Borrero MD
Chief Complaint
-
Change in mental status
History of Present Illness
Patient is a 43-year-old male past medical history of CAD s/p CABG on December 16, diabetes, ESRD on HD who presents with change in mental status. Additional history is obtained from patient's at the bedside. Patient was just discharged
[facility] yesterday following bypass surgery. notes since returning home patient has had multiple falls. She notes he is extremely lethargic which is not his baseline. She also notes patient 1 episode of vomiting this morning.
Patient brought to the emergency room for evaluation was noted to hypoxic with pulse ox in the 70s. bedside notes patient did have a difficulty with low pulse ox intermittently during his hospitalization, but was not discharged on supplemental
oxygen.
Medical History
Past Medical History
Past Medical History: Reports Other
Additional Past Medical History:
Coronary Artery Disease s/p CABG
Essential Hypertension
Hyperlipidemia
Diabetes Mellitus, Type II
ESRD on HD
Anemia of Chronic Disease
Chronic Thrombocytopenia
Chronic Left Heel Osteomyelitis
Past Surgical History: Reports Other
Additional Past Surgical History:
CABG
Left Upper Ext AV Fistula
Left 1st and 5th Toe Amputations
Bilateral Cataracts
Social History
Tobacco: Non-smoker
Alcohol: None
Drug: None
Employment: Disabled
Family History
Family History: Not pertinent
Allergies / Home Medications
Allergies reflects when Allergies were last updated in [employer].
Home Medications with original date entered in [employer]
Allergy/Medication List:
Allergies
Allergy/AdvReac Type Severity Reaction Status Date / Time
vancomycin Allergy chills Verified 12/23/23 11:25
Home Medications
amoxicillin 875 mg-potassium clavulanate 125 mg tablet 1 tab PO BID Infection 12/08/23
atorvastatin 40 mg tablet 40 mg PO DAILY High Cholesterol 12/08/23
cholecalciferol (vitamin D3) 25 mcg (1,000 unit) tablet (Vitamin D3) 25 mcg PO DAILY Supplement 12/08/23
sevelamer carbonate 800 mg tablet 800 mg PO TID REDUCE PHOSPHATE 12/08/23
vitamin B complex-vitamin C-folic acid 0.8 mg tablet (Dialyvite 800) 1 tab PO DAILY Supplement 12/08/23
Medical Marijuana 2 tab PO DAILYPRN PRN mild pain 12/14/23
aspirin 81 mg tablet,delayed release 81 mg PO DAILY Blood Clot Prevention/Tx 12/14/23
lidocaine-prilocaine 2.5 %-2.5 % topical cream 1 applic topical DAILYPRN PRN before hemodialysis 12/14/23
acetaminophen 325 mg tablet 650 mg (2 x 325 mg) PO Q6HPRN PRN mild pain,headache,temp >101F #0 tabs 12/22/23
clopidogrel 75 mg tablet 75 mg PO DAILY graft patentcy #90 tabs 12/22/23
cyclobenzaprine 10 mg tablet 5 mg (1/2 x 10 mg) PO Q8HPRN PRN muscle spasm #20 tabs 12/22/23
gabapentin 100 mg capsule 100 mg PO TID post-operative pain #30 caps 12/22/23
losartan 25 mg tablet 25 mg PO DAILY blood pressure #30 tabs 12/22/23
metoprolol succinate 25 mg tablet,extended release 24 hr 12.5 mg (1/2 x 25 mg) PO DAILY #30 tabs 12/22/23
oxycodone 5 mg tablet 2.5 mg (1/2 x 5 mg) PO Q4HPRN PRN mild pain #10 tabs 12/22/23
pantoprazole 40 mg tablet,delayed release 40 mg PO DAILY gi prophylaxis while on plavix #90 tabs 12/22/23
Review of Systems
-
Unable to obtain full review of systems at this time due to: Acuity
Physical Exam
Vital Signs
Vital Signs
Temp Pulse Resp BP Pulse Ox
99.7 F 73 16 113/65 100
12/23/23 11:26 12/23/23 13:15 12/23/23 13:15 12/23/23 12:30 12/23/23 13:15
Physical Exam
General: Well Developed, Well Nourished and Comfortable
Respiratory: Decreased Breath Sounds (Poor Inspiratory Effort )
Cardiac: S1/S2 and Regular Rhythm
GI: Soft and Non Tender
Rectal: Deferred by Provider
Musculoskeletal: No Clubbing, No Cyanosis and Other (+1 pitting edema bilateral lower extremities)
Skin: Warm and Dry
Neuro: Awake, Alert, Oriented and Nonfocal/grossly intact
Laboratory Results
-
12/23/23 11:47
Laboratory Results
PT 17.1 Sec (11.4-14.6) H 12/23/23 11:47
INR 1.39 12/23/23 11:47
APTT 43.0 Sec (23.4-35.0) H 12/23/23 11:47
Lactic Acid 1.2 mmol/L (0.7-2.0) 12/23/23 11:47
Total Bilirubin 1.4 mg/dl (0.2-1.3) H 12/23/23 11:47
AST 164 U/L (17-59) H 12/23/23 11:47
ALT 21 U/L (0-50) 12/23/23 11:47
Alkaline Phosphatase 116 U/L (38-126) 12/23/23 11:47
Troponin I 0.356 ng/ml H* 12/23/23 11:47
Data Reviewed
-
CT Scan: Report Reviewed by me
Lab Data: Labs Reviewed by me
Old Records: Reviewed
Impression/Plan
-
Acute Change in Mental Status, possibly TME secondary infection (possible pneumonia) vs Medication-Related
-Hold oxycodone, cyclobenzaprine and gabapentin which are all new
-Continue empiric antibiotics with Doxycycline and Zosyn for possible pneumonia - Consult Infectious Disease
-Check Urine Drug Screen
-Consult PT/OT
Acute Hypoxic Respiratory Insufficiency, suspect multifactorial related to mental status, atelectasis and possible pneumonia
-Continue supplemental oxygen
-Encourage use of incentive spirometer
Hyperkalemia /Hyponatremia
-Patient ordered Lokelma, and Insulin/dextrose
-Plan for HD this afternoon
Coronary Artery Disease s/p CABG
-Continue Aspirin and Plavix
Essential Hypertension
-Hold losartan due to hyperkalemia
Hyperlipidemia
-Continue atorvastatin
Diabetes Mellitus, Type II
-HgbA1c 6.1 in November 2023
-Continue diabetic diet
-Monitor sugars and continue coverage insulin
ESRD on HD MoWeFr
-Plan for HD this afternoon
Anemia of Chronic Disease
-Hgb stable compared to previous
Chronic Left Heel Osteomyelitis
-Augmentin on hold while on IV antibiotics
DVT proph: SC Heparin
Code Status: Full Code
[2023-12-23] MEDS: DEXTROSE 50% SYRINGE 25 GRAMS IV (14:19)
[2023-12-23] MEDS: LOKELMA 10 GRAM PO (14:20)
[2023-12-23] MEDS: CALCIUM GLUCONATE 1000 MG IV (14:20)
[2023-12-23] MEDS: ZOSYN 100 IV (14:20)
[2023-12-23] MEDS: NOVOLIN R 5 UNITS IV (14:23)
--- NOTE | 2023-12-23 14:37 | W.PN.UPDATE ---
Update Note
Progress Note Update
HPI: 43-year-old male with past medical history of CAD s/p CABG on December 16, diabetes, ESRD on HD MWF; who presented with change in mental status. Additional history was obtained from patient's at bedside. Patient was just discharged from
[facility] the day prior following bypass surgery. noted since returning home, patient has had multiple falls and appeared more lethargic which is not his baseline.
Patient also had 1 episode of vomiting in the morning. Patient was brought to the emergency room for evaluation was noted to be hypoxic with pulse ox in the 70s on RA. did notice that patient has had low pulse ox intermittently during his
recent hospitalization, but was not discharged on supplemental oxygen.
A/P:
# Acute change in mental status, possibly acute metabolic encephalopathy secondary to infection (possible pneumonia) vs medication-related
Hold oxycodone, cyclobenzaprine and gabapentin which are all new
Continue empiric antibiotics with Doxycycline and Zosyn for possible pneumonia - Consult Infectious Disease
Check Urine Drug Screen
Consult PT/OT
# Acute Hypoxic Respiratory Insufficiency, suspect multifactorial related to mental status, atelectasis and possible pneumonia
Continue supplemental oxygen
Encourage use of incentive spirometer
# Hyperkalemia
Patient ordered Lokelma, and Insulin/dextrose
Plan for HD this afternoon
# Hyponatremia
Monitor
# Coronary Artery Disease s/p recent CABG
Continue Aspirin and Plavix
CT surgery/cardiology consulted
# Essential Hypertension
Hold losartan due to hyperkalemia
# Hyperlipidemia
Continue atorvastatin
# Diabetes Mellitus, Type II
HgbA1c 6.1 in November 2023
Continue diabetic diet
Monitor sugars and continue coverage insulin
# ESRD on HD MoWeFr
Renal on board
# Anemia of Chronic Disease
Hgb stable compared to previous
# Chronic Left Heel Osteomyelitis
Augmentin on hold while on IV antibiotics
DVT proph: SC Heparin
Code Status: Full Code
--- NOTE | 2023-12-23 14:45 | CON.ID ---
Consultation
-
Date/Time Consultation Requested: December 23, 2023 1433
Date/Time Consultation Performed: 12/23/2023 1445
Requesting Provider: Joanna Delarosa PA-C
Performing Provider: Dr. Aleyda Gaytan
Reason for Consultation: Pneumonia
Chief Complaint / Past History
Chief Complaint
Weakness
History of Present Illness
43-year-old male with diabetes mellitus type 2, neuropathy, end-stage renal disease on hemodialysis via left upper extremity AV fistula, left heel chronic wound has been on Augmentin for the past 2 months as per his blood and plasma laboratory assistant, multivessel coronary
disease who was recently hospitalized from December 13 to December 21 when he presented with weakness, falls, and presyncopal episode. On December 16, he underwent previously scheduled CABG x 3. Postop had episode of hypotension. He was discharged to home
on December 21. However patient has fallen twice at home. He feels weak. He is very lethargic. He vomited x 1. He came back to the ER today. He was hypoxic in the 70s. Potassium 6.5. WBC 12. CTA of the chest no PE, positive bibasilar and upper
lobe opacities cyst discharged with pneumonia. He was started on Zosyn and doxycycline. Of note patient intolerant to IV vancomycin with chills. Patient currently very lethargic. He reports no fevers or chills. He denies cough or shortness of
breath. No diarrhea. He does not make urine.
Past History
Additional Past Medical History:
DM2
Neuropathy
HTN
ESRD on HD via LUE AVF
CAD s/p stent; s/p CABG x3 (12/17/23)
Systolic heart failure
MRSA screen positive
Left heel chronic wound
Left 1st, 5th toe amputations
Allergy History:
vancomycin Allergy (Verified 12/23/23 11:25)
chills
Medications Reviewed: Yes
Current Antibiotics:
Zosyn
doxycycline
Social History
Tobacco: Former Smoker
Alcohol: None
Drug: Marijuana (medical)
Personal:
Family History
Family History: Not Pertinent
Review of Systems
Review of Systems
General: Negative Fever or Chills
HEENT: Negative Stiff Neck, Sinus Problems, Headache or Pharyngitis
Cardiovascular: Negative Chest Pain or Dyspnea
Respiratory: Negative Dyspnea or Cough
Gasteroenterology: Negative Nausea or Vomiting
Genital / Urological: Negative Flank Pain
Endocrine: Weakness
Skin / Hair / Nails: Negative Rash
Neurological: Negative Dizziness
All systems: All other systems were reviewed and were negative
Vital Signs
Temp Pulse Resp BP Pulse Ox
99.7 F 69 17 105/53 94
12/23/23 11:26 12/23/23 14:27 12/23/23 14:27 12/23/23 14:27 12/23/23 14:27
Physical Exam
Physical Exam
Constitutional: Non-toxic
Eyes: No Conjunctival Hemorrhage
Pharynx: Benign
Cardiovascular: Regular Rate and S1/S2
Pulmonary: Coarse (bases)
Gastrointestinal: Soft, Non Tender, Non Distended and Normal Bowel Sounds
Genito-Urinary: Negative CVA Tenderness
Extremities: Edema (1+ BLE)
Wound: Other (Sternal incision dry/closed. Left heel callus with central wound without deep probe, no erythema, dry)
Neurological: Other (Drowsy)
Lab / Diagnostic Study Results
12/23/23 11:47
Abs Immat Gran (auto) 0.1 10^3/uL (0-0.05) H 12/23/23 11:47
Absolute Neuts (auto) 9.3 10^3/uL (1.4-6.5) H 12/23/23 11:47
Absolute Lymphs (auto) 1.0 10^3/uL (1.2-3.4) L 12/23/23 11:47
Absolute Monos (auto) 1.5 10^3/uL (0.1-0.6) H 12/23/23 11:47
Absolute Basos (auto) 0.0 10^3/uL (0-0.2) 12/23/23 11:47
Immature Gran % 0.4 % (0-0.5) 12/23/23 11:47
Neutrophils % 78.0 % (42.2-75.2) H 12/23/23 11:47
Lymphocytes % 7.9 % (20.5-51.1) L 12/23/23 11:47
Monocytes % 12.6 % (1.7-9.3) H 12/23/23 11:47
Eosinophils % 0.8 % (0-6) 12/23/23 11:47
Basophils % 0.3 % (0-2) 12/23/23 11:47
PT 17.1 Sec (11.4-14.6) H 12/23/23 11:47
INR 1.39 12/23/23 11:47
Lactic Acid 1.2 mmol/L (0.7-2.0) 12/23/23 11:47
Microbiology Results
Micro:
12/23/23 11:47 Blood Culture - Pending
Blood/Venous
12/23/23 11:47 Blood Culture - Pending
Blood/Venous
12/23/[address]: Patchy parenchymal opacity within both lower lobes as well as the mid to inferior aspect of the left upper lobe. Main differential considerations of pneumonia and/or atelectasis. Small focus of parenchymal opacity in the
anteromedial and superior aspect of the right middle lobe, which is likely focal atelectasis.
12/23/[address]: No evidence of acute intracranial abnormality.
12/23/23 CXR: The lungs appear clear for portable AP technique. Cardiac silhouette size is enlarged with no evidence for pulmonary edema or pleural effusion.
Assessment / Plan
# Acute hypoxic respiratory insufficiency
# Possible PNA. CT with bibasilar opacities. Pt denies cough/SOB
# MRSA colonized
# Recent CABG x 3 12/17/23
- Replace Zosyn with cefepime 1g IV q24.
- Change IV doxycycline to po
- Follow oxygen requirement status
- Follow wbc
# ESRD on HD via AVF
# Chronic left heel wound currently Augmentin 875mg po bid >2 months,as per his blood and plasma laboratory assistant.
- Heel wound is not infected; no deep probe, no exposed bone
- Recommend observe without abx.
- OF NOTE AUGMENTIN 875MG SHOULD BE AVOIDED FOR CrCL <30, as in this patient.
# DM with neuropathy
--- NOTE | 2023-12-23 15:58 | W.CON.NEPH ---
Consultation
-
Date/Time Consultation Requested: 12/23/2023 13:56
Date/Time Consultation Performed: 12/23/2023 3:59PM
Requesting Provider: Joanna Smith
Performing Provider: Sameera Girard
Reason for Consultation: ESRD on HD
Medical History
-
Chief Complaint: ESRD on HD
History of Present Illness:
Mr. Parr is a 43YOM with PMH of CAD, HTN, DLD, ESRD on HD (MWF) anemia, thrombocytoepnia, T2DM, DLD who presents to the hospital after his CABG on 12/16 with changes in mental status. His is at bedside. He is on a statin for DLD. He does take
losartan for HTN.
Patient was just discharged yesterday after bypass surgery. Since being home, he had a fall last night and this morning as well as an episode of vomiting this morning. He did have low pulse ox during hospitalization. Patient feels that his new
medications are too strong for him. Patient was discharged on oxycodone and flexeril and gabapentin. He is noted to have losartan listed as an outpatient medication and his potassium is 6.5 today.
He dialyzes in [place]. He goes MWF. Performs through [facility]. No issues recently.
Past Medical History
CAD/cardiac stents now s/p CAG,
HTN,
HLD,
ESRD dialysis Thursday,
anemia of chronic disease/CKD,
chronic thrombocytopenia,
DM2�controlled,
HLD
Chronic L heel OM
Past Surgical History: Other (CABG Left Upper Ext AV Fistula Left 1st and 5th Toe Amputations Bilateral Cataracts)
Social History
Tobacco: Non-Smoker
Alcohol: None
Drug: None
Personal:
Living: With Family
Employment: Disabled
Family History
Family History: Not Pertinent
Allergies / Home Medications
Allergy/AdvReac Type Severity Reaction Status Date / Time
vancomycin Allergy chills Verified 12/23/23 11:25
�Medication �Instructions �Recorded �Confirmed �Type
amoxicillin 875 mg-potassium 1 tab PO BID Infection 12/08/23 12/23/23 History
clavulanate 125 mg tablet
atorvastatin 40 mg tablet 40 mg PO DAILY High Cholesterol 12/08/23 12/23/23 History
cholecalciferol (vitamin D3) 25 25 mcg PO DAILY Supplement 12/08/23 12/23/23 History
mcg (1,000 unit) tablet (Vitamin
D3)
sevelamer carbonate 800 mg tablet 800 mg PO TID REDUCE PHOSPHATE 12/08/23 12/23/23 History
vitamin B complex-vitamin C-folic 1 tab PO DAILY Supplement 12/08/23 12/23/23 History
acid 0.8 mg tablet (Dialyvite 800)
Medical Marijuana 2 tab PO DAILYPRN PRN mild pain 12/14/23 12/23/23 History
aspirin 81 mg tablet,delayed 81 mg PO DAILY Blood Clot 12/14/23 12/23/23 History
release Prevention/Tx
lidocaine-prilocaine 2.5 %-2.5 % 1 applic topical DAILYPRN PRN 12/14/23 12/23/23 History
topical cream before hemodialysis
acetaminophen 325 mg tablet 650 mg (2 x 325 mg) PO Q6HPRN PRN 12/22/23 12/23/23 Rx
mild pain,headache,temp >101F #0
tabs
clopidogrel 75 mg tablet 75 mg PO DAILY graft patentcy #90 12/22/23 12/23/23 Rx
tabs
cyclobenzaprine 10 mg tablet 5 mg (1/2 x 10 mg) PO Q8HPRN PRN 12/22/23 12/23/23 Rx
muscle spasm #20 tabs
gabapentin 100 mg capsule 100 mg PO TID post-operative pain 12/22/23 12/23/23 Rx
#30 caps
losartan 25 mg tablet 25 mg PO DAILY blood pressure #30 12/22/23 12/23/23 Rx
tabs
metoprolol succinate 25 mg 12.5 mg (1/2 x 25 mg) PO DAILY #30 12/22/23 12/23/23 Rx
tablet,extended release 24 hr tabs
oxycodone 5 mg tablet 2.5 mg (1/2 x 5 mg) PO Q4HPRN PRN 12/22/23 12/23/23 Rx
mild pain #10 tabs
pantoprazole 40 mg tablet,delayed 40 mg PO DAILY gi prophylaxis 12/22/23 12/23/23 Rx
release while on plavix #90 tabs
Review of Systems
-
History Source: Patient and Family
All other systems: Negative unless noted
Constitutional: Fatigue
Abdomen/GI: Vomiting
Neurological: Weakness and Other (lethargy)
Physical Exam
Vital Signs
Vital Signs
Temp Pulse Resp BP Pulse Ox
99.7 F 69 17 105/53 94
12/23/23 11:26 12/23/23 14:27 12/23/23 14:27 12/23/23 14:27 12/23/23 14:27
Lab Results
WBC 12.0 10^3/uL (4.8-10.8) H 12/23/23 11:47
RBC 2.59 10^6/uL (4.70-6.10) L 12/23/23 11:47
Hgb 7.9 g/dL (13.0-18.0) L 12/23/23 11:47
Hct 23.7 % (39.0-52.0) L 12/23/23 11:47
Plt Count 155 10^3/uL (130-400) D 12/23/23 11:47
Sodium 128 mmol/L (135-145) L 12/23/23 11:47
Chloride 87 mmol/L (98-107) L 12/23/23 11:47
Carbon Dioxide 22 mmol/L (22-30) 12/23/23 11:47
BUN 88 mg/dl (9-20) H 12/23/23 11:47
Creatinine 12.8 mg/dL (0.7-1.3) H* 12/23/23 11:47
eGFR 4.55 12/23/23 11:47
Glucose 159 mg/dl (70-99) H 12/23/23 11:47
Calcium 8.7 mg/dl (8.4-10.2) 12/23/23 11:47
Hqm-N-Niblxjxehfd Pept > 20923 pg/ml 12/23/23 11:47
Albumin 4.0 g/dl (3.5-5.0) 12/23/23 11:47
Physical Exam
General: Other (very sleepy, falls asleep while talking to him)
HEENT: PERRL, EOMI, Anicteric, Conjunctivae Clear, Ear/Nose Intact, Hearing Normal, Oropharynx Clear/Moist, Dentition Intact, Facial Symmetry, Neck Supple, Trachea Midline, No JVD and No Thyromegaly
Respiratory: Other (some rales auscultated)
Cardiac: S1/S2, Regular Rate/Rhythm and Edema
Breast: N/A
Abdomen: Soft and Nontender
Rectal: Deferred by Provider
Musculoskeletal: No Clubbing, No Cyanosis and Edema
Skin: No Rash, Warm, Dry, No Clubbing, No Cyanosis, Normal Turgor and No Bruising
Neuro: Other (very sleepy, no focal defecits noted)
Hematologic/Lymphatic: No Cervical Lymphadenopathy
Psych: Mood/afflect pleasant, Insight/judgement good and Appropriate
Data Reviewed
-
Radiology: Image Personally Visualized and interpreted (clear lungs noted)
CT Scan: Report Reviewed by me (no acute intracranial abnormality noted)
Assessment/Plan
-
Assessment:
hyperkalemia
altered mental status/lethargy
hypoxia
CAD s/p CABG
HTN
T2DM
ESRD on HD MWF
Chronic L heel osteomyelitis
Plan:
- HD today per usual MWF schedule and for hyperK (will dialyze on 2K bath)
- hold oxy, flexeril and gabapentin
- blood pressures are much softer than his typical, obtain lactate
- continue sevelamer
- ALINA with HD 8K. Hgb appears to be trickling down, continue to monitor
[2023-12-23] MEDS: ProAmatine 5 MG PO (16:47)
[2023-12-23] MEDS: EMLA CREAM 1 GRAM TOPICAL (16:47)
[2023-12-23] MEDS: MANNITOL 25% 12.5 GRAMS IV ×2 (16:55→18:20)
[2023-12-23] MEDS: FLEXBUMIN 25% FOR HEMODIALYSIS 12.5 GRAMS IV ×2 (17:00→18:24)
[2023-12-23 17:25] LABS: Troponin I 0.463 ng/ml
[2023-12-23] MEDS: HEPARIN SC ×2 (17:30→23:22)
[2023-12-23] MEDS: RETACRIT 8000 UNITS IV (17:30)
--- NOTE | 2023-12-23 17:49 | PTCARENOTE ---
Rec'd pt on admission from ED. Shortly after arrival started on HD. Very lethargic, arouses to verbal and sometimes requires tactile stimulation. Answers questions when awake. Pt with falls today. wounds to knees as a result. vital signs stable.
[2023-12-23 18:20] LABS: Glucose - Point of Care 153 mg/dl (70-99)
[2023-12-23] MEDS: NOVOLOG FLEXPEN-LOW RESISTANCE SC (20:13)
[2023-12-23] MEDS: RENVELA 800 MG PO (20:40)
[2023-12-23] MEDS: MAXIPIME 1000 MG IV (20:40)
[2023-12-23] MEDS: VIBRAMYCIN 100 MG PO (20:40)
[2023-12-23] MEDS: STERILE WATER FOR INJECTION 10 ML IV (20:40)
[2023-12-23] MEDS: TYLENOL 650 MG PO (21:40)
[2023-12-23 21:51] LABS: Glucose - Point of Care 167 mg/dl (70-99)
[2023-12-23 23:37] LABS: Potassium 4.3 mmol/L (3.5-5.1)
[2023-12-23 23:45] LABS: Troponin I 0.682 ng/ml
[2023-12-24] VITALS (14 sets, daily range): BP systolic 90–144; BP diastolic 59–84; BMI 26.3
[2023-12-24 05:25] LABS: Hematocrit 24.2 % (39.0-52.0); Mean Corp Hgb Conc. 33.1 g/dL (33.0-37.0); Mean Corpuscular Hgb 30.5 pg (27.0-31.0); Mean Corpuscular Volume 92.4 fL (80.0-94.0); Mean Platelet Volume 9.9 fL (7.4-10.4); Platelet Count 164 10^3/uL (130-400); Red Blood Cell Count 2.62 10^6/uL (4.70-6.10); Red Cell Dist. Width 17.1 % (11.5-14.5); White Blood Cell Count 9.7 10^3/uL (4.8-10.8)
[2023-12-24 05:53] LABS: Blood Urea Nitrogen 50 mg/dl (9-20); Carbon Dioxide 26 mmol/L (22-30); Chloride 91 mmol/L (98-107); Estimated Creatinine Clearance 13 ml/min; Glucose 138 mg/dl (70-99); Magnesium 2.4 mg/dl (1.6-2.3); Phosphorus 5.9 mg/dl (2.5-4.5); Potassium 4.7 mmol/L (3.5-5.1); Sodium 133 mmol/L (135-145); eGFR 8.12
[2023-12-24 06:17] LABS: Troponin I 0.809 ng/ml
--- NOTE | 2023-12-24 08:01 | W.PN.HOSP.TC ---
Today's Communication/Plan
-
see A/P
Assessment / Plan
Assessment / Plan
HPI: 43-year-old male with past medical history of CAD s/p CABG on December 16, diabetes, ESRD on HD MWF; who presented with change in mental status. Additional history was obtained from patient's at bedside. Patient was just discharged from
[facility] the day prior following bypass surgery. noted since returning home, patient has had multiple falls and appeared more lethargic which is not his baseline.
Patient also had 1 episode of vomiting in the morning. Patient was brought to the emergency room for evaluation was noted to be hypoxic with pulse ox in the 70s on RA. did notice that patient has had low pulse ox intermittently during his
recent hospitalization, but was not discharged on supplemental oxygen.
A/P:
# Acute change in mental status/ acute metabolic encephalopathy, secondary to infection (possible pneumonia) vs medication-related
CT head on admission showed no acute intracranial abnormality.
Hold oxycodone, cyclobenzaprine and gabapentin which were all new
Replace Zosyn with cefepime 1g IV q24. Changed IV doxycycline to PO
Check UA and Urine Drug Screen if able
PT/OT eval
# Acute Hypoxic Respiratory Insufficiency, suspect multifactorial related to mental status, atelectasis and possible pneumonia
Continue supplemental oxygen, weaned from 6L on admission to 3L NC, pt not on home O2
Encourage use of incentive spirometer
# Hyperkalemia, resolved
s/p Lokelma, Insulin/dextrose
Cont HD for hyperkalemia treatment
# Mild Hyponatremia
sodium level 133 today
# Isolated AST elevation
AST at 164
Monitor LFT
Hold YEAST PUMPER Lipitor
# Coronary Artery Disease s/p recent CABG
Continue Aspirin and Plavix
CT surgery/cardiology consulted
# Essential Hypertension
Hold losartan due to hyperkalemia
# Hyperlipidemia
YEAST PUMPER Lipitor on hold
# Diabetes Mellitus, Type II
HgbA1c 6.1 in November 2023
Continue diabetic diet
Monitor sugars and continue coverage insulin
# ESRD on HD MoWeFr
Renal on board
# Anemia of Chronic Disease
Hgb stable compared to previous
# Chronic Left Heel Osteomyelitis
Augmentin on hold while on IV antibiotics
DVT proph: SC Heparin
Code Status: Full Code
DW RN
Anticipated Discharge: > 48 hours
Subjective/Interval History
-
Date of Service: December 24, 2023
Objective Data
-
Labs:
Laboratory Results
12/23/23 12/23/23 12/24/23
17:47 23:13 05:15
WBC 9.7
Hgb 8.0 L
Hct 24.2 L
Plt Count 164
Sodium 133 L
Potassium Cancelled 4.3 D 4.7
Chloride 91 L
Carbon Dioxide 26
BUN 50 H
Creatinine 7.9 H*
Glucose 138 H
Calcium 9.0
Vital Signs:
Vital Signs
Temp Pulse Resp BP Pulse Ox
36.8 C 79 13 144/80 98
12/24/23 03:51 12/24/23 06:00 12/24/23 06:00 12/24/23 06:00 12/24/23 06:00
Review of Systems
-
All other systems: Reviewed and negative
Physical Exam
-
General: Well Developed, Well Nourished, Comfortable, Respiratory Distress (mild), Conversant and Other (lethargic)
HEENT: Normocephalic, Atraumatic, Nose Appears Normal, Ears Appear Normal and Oxygen (3L NC)
Respiratory: Clear to Auscultation and Non Labored Respirations; Negative Accessory Resp Muscle Use
Cardiac: Regular Rhythm, S1/S2 and Other (chest wall incision clean and intact)
GI: Soft, Nontender, Nondistended and Normal Bowel Sounds
Skin: Warm and Dry
Neuro: Awake and Alert
Psych: Calm
Data Reviewed
-
CT Scan: Report Reviewed by me
Labs: Labs Reviewed by me
[2023-12-24 08:30] LABS: Glucose - Point of Care 150 mg/dl (70-99)
[2023-12-24] MEDS: ASPIR LOW (ENTERIC COATED) 81 MG PO (08:40)
[2023-12-24] MEDS: B COMPLEX w/VITAMIN C 1 CAPLET PO (08:40)
[2023-12-24] MEDS: PROTONIX 40 MG PO (08:40)
[2023-12-24] MEDS: HEPARIN 5000 UNITS SC ×2 (08:40→16:37)
[2023-12-24] MEDS: TOPROL XL 12.5 MG PO (08:40)
[2023-12-24] MEDS: VIBRAMYCIN 100 MG PO ×2 (08:40→21:24)
[2023-12-24] MEDS: VITAMIN D3 (cholecalciferol) 25 MCG PO (08:40)
[2023-12-24] MEDS: PLAVIX 75 MG PO (08:41)
[2023-12-24] MEDS: RENVELA 800 MG PO ×3 (08:41→16:35)
[2023-12-24] MEDS: TYLENOL 650 MG PO ×2 (08:43→21:23)
[2023-12-24] MEDS: NOVOLOG FLEXPEN-LOW RESISTANCE 1 UNITS SC ×2 (08:47→16:36)
--- NOTE | 2023-12-24 09:50 | W.PN.ID1 ---
Date of Service
Date of Service: December 24, 2023
Today's Communication
Continue cefepime/doxy.
Assessment / Plan
# Fever 100.8 x1 over night
# Leukocytosis - resolved
# Acute hypoxic respiratory insufficiency
# Possible PNA. CT with bibasilar opacities. Pt denies cough/SOB
# MRSA colonized
# Recent CABG x 3 (12/17/23)
- Follow blood cx's.
- Continue cefepime 1g IV q24 and po doxycycline (d2)
- Follow oxygen requirement status
- Follow temps
# ESRD on HD via AVF
# Chronic left heel wound (has been on Augmentin 875mg po bid >2 months,as per his staff field engineer)
- Heel wound is not infected; no deep probe, no exposed bone
- Observe without abx.
- OF NOTE AUGMENTIN 875MG SHOULD BE AVOIDED FOR CrCL <30, as in this patient.
# DM with neuropathy
#Additional Past Medical History:
DM2
Neuropathy
HTN
ESRD on HD via LUE AVF
CAD s/p stent; s/p CABG x3 (12/17/23)
Systolic heart failure
MRSA screen positive
Left heel chronic wound
Left 1st, 5th toe amputations
Chief Complaint
-: Pneumonia
Subjective / Review of Systems
Sitting up in chair A+O x 3.
Vital Signs / Physical Exam
Vital Signs
Vital Signs
Temp Pulse Resp BP Pulse Ox
98.3 F 69 14 103/65 99
12/24/23 07:49 12/24/23 08:00 12/24/23 08:00 12/24/23 08:00 12/24/23 08:00
Physical Exam
Constitutional: No Acute Distress and Comfortable
Eyes: No Conjunctival Hemorrhage
Cardiovascular: Regular Rate and S1/S2
Pulmonary: Clear
Gastrointestinal: Soft, Non Tender and Non Distended
Genito-Urinary: Negative CVA Tenderness
Extremities: Edema
Neurological: AO x 3
Objective Data
Lab Data
Lab Results
12/24/23 05:15
12/24/23 05:15
PT 17.1 Sec (11.4-14.6) H 12/23/23 11:47
INR 1.39 12/23/23 11:47
APTT 43.0 Sec (23.4-35.0) H 12/23/23 11:47
Estimated Creat Clear 13 ml/min 12/24/23 05:15
Lactic Acid Cancelled 12/23/23 16:09
Total Bilirubin 1.4 mg/dl (0.2-1.3) H 12/23/23 11:47
AST 164 U/L (17-59) H 12/23/23 11:47
ALT 21 U/L (0-50) 12/23/23 11:47
Alkaline Phosphatase 116 U/L (38-126) 12/23/23 11:47
Most recent labs reviewed.
Micro Results:
12/23/23 11:47 Blood Culture - Pending
Blood/Venous
12/23/23 11:47 Blood Culture - Pending
Blood/Venous
12/23/[address]: Patchy parenchymal opacity within both lower lobes as well as the mid to inferior aspect of the left upper lobe. Main differential considerations of pneumonia and/or atelectasis. Small focus of parenchymal opacity in the
anteromedial and superior aspect of the right middle lobe, which is likely focal atelectasis.
12/23/[address]: No evidence of acute intracranial abnormality.
12/23/23 CXR: The lungs appear clear for portable AP technique. Cardiac silhouette size is enlarged with no evidence for pulmonary edema or pleural effusion.
[2023-12-24 11:46] LABS: Glucose - Point of Care 225 mg/dl (70-99)
--- NOTE | 2023-12-24 11:59 | W.PN.NEPH.PH ---
Today's Communication / Plan
-
- HD tomorrow
Assessment/Plan
-
Assessment:
hyperkalemia
altered mental status/lethargy
hypoxia
CAD s/p CABG
HTN
T2DM
ESRD on HD MWF
Chronic L heel osteomyelitis
Plan:
- HD tomorrow per usual MWF schedule and for hyperK (will dialyze on 2K bath)
- hold oxy, flexeril and gabapentin -- mental status improved today
- blood pressures are much softer than his typical, lactate wnl
- continue sevelamer
- ALINA with HD 8K. Hgb stable for now
-
-
Date of Service: December 24, 2023
CC / HPI / ROS
-
Chief Complaint:
ESRD on HD
History of Present Illness:
s/p CABG on 11/28 0
arrived with lethargy, now improved
Review of Systems:
did well with HD
feeling better today
Labs
-
Labs:
WBC 9.7 10^3/uL (4.8-10.8) 12/24/23 05:15
RBC 2.62 10^6/uL (4.70-6.10) L 12/24/23 05:15
Hgb 8.0 g/dL (13.0-18.0) L 12/24/23 05:15
Hct 24.2 % (39.0-52.0) L 12/24/23 05:15
Plt Count 164 10^3/uL (130-400) 12/24/23 05:15
Sodium 133 mmol/L (135-145) L 12/24/23 05:15
Potassium 4.7 mmol/L (3.5-5.1) 12/24/23 05:15
Chloride 91 mmol/L (98-107) L 12/24/23 05:15
Carbon Dioxide 26 mmol/L (22-30) 12/24/23 05:15
BUN 50 mg/dl (9-20) H 12/24/23 05:15
Creatinine 7.9 mg/dL (0.7-1.3) H* 12/24/23 05:15
eGFR 8.12 12/24/23 05:15
Glucose 138 mg/dl (70-99) H 12/24/23 05:15
Calcium 9.0 mg/dl (8.4-10.2) 12/24/23 05:15
Phosphorus 5.9 mg/dl (2.5-4.5) H 12/24/23 05:15
Zak-D-Iqcrufordoc Pept > 31981 pg/ml 12/23/23 11:47
Albumin 4.0 g/dl (3.5-5.0) 12/23/23 11:47
Physical Exam
-
Vital Signs:
Vital Signs
Temp Pulse Resp BP Pulse Ox
98.4 F 74 14 111/67 86
12/24/23 11:15 12/24/23 10:00 12/24/23 08:00 12/24/23 10:00 12/24/23 11:45
Cardiovascular:: Regular rate and rhythm
Respiratory:: Bilateral: Coarse
Lung Excursion:: Normal
Abdomen:: Nontender and Soft
Bowel Sounds:: Normal
Extremity Edema:: +1: Bilateral:
Yeager Catheter: No
[2023-12-24] MEDS: NOVOLOG FLEXPEN-LOW RESISTANCE 2 UNITS SC (12:15)
--- NOTE | 2023-12-24 14:05 | W.PN.CD ---
Today's Communication / Plan
-
Continue medications and monitor
Likely d/c tomorrow
Impression / Plan
-
S: 43 y/o male with coronary artery disease status post mid LAD stent from 08/2022 and 05/2023, now s/p CABG x 3 12/17/23, hypertension, diabetes type 2, dyslipidemia, diabetic neuropathy, diabetic retinopathy, osteomyelitis to the heel, end-stage
renal disease on dialysis who was d/c'd from the hospital yesterday after bypass surgery and is back with weakness and lethargy and hypoxia (as low as 70's per ED physician). He is now recovering and still requiring low level oxygen.
Lethargy, weakness:
-in setting of hypoxia (which was severe with SPO2 in 70's), which has improved on O2. CT PE pending. CT head pending.
-Likely medication related- taking Flexeril and oxy, which are new. Now holding.
-due for HD today
Abnormal EKG:
-ST elevations noted diffusely, suggestive of pericarditis vs LVH with repol abnormalities, no symptoms of pericariditis
-echo with normal wall motion and EF
-no anginal chest pain, just incisional
ESRD on HD:
-nephrology consulted
CAD s/p CABG x 3 12/17/23:
-stable
-CT surgery on board
-ASA, Plavix, statin, BB
Anemia:
-chronic, follow
DM2
hx Osteomyelitis
Subjective: Feeling better, would like to stay for HD tomorrow
Physical Exam
Vital Signs/Labs
Vital Signs
Temp Pulse Resp BP Pulse Ox
98.4 F 74 14 111/67 86
12/24/23 11:15 12/24/23 10:00 12/24/23 08:00 12/24/23 10:00 12/24/23 11:45
12/23/23 12/24/23 12/25/23
06:59 06:59 06:59
Actual Weight 182 lb 15.739 oz
12/24/23 05:15
12/24/23 05:15
PT 17.1 Sec (11.4-14.6) H 12/23/23 11:47
INR 1.39 12/23/23 11:47
APTT 43.0 Sec (23.4-35.0) H 12/23/23 11:47
Magnesium 2.4 mg/dl (1.6-2.3) H 12/24/23 05:15
12/23/23
11:47
Nmr-T-Dcmggpcruqq Pept > 63311
LAB Results
12/23/23 12/23/23 12/23/23
11:47 16:54 23:13
Troponin I 0.356 H* 0.463 H* D 0.682 H* D
12/24/23
05:15
Troponin I 0.809 H*
Physical Exam
Constitutional: No acute distress and Comfortable
Cardiovascular: Rhythm & rate is regular and Pedal edema present (trivial )
Respiratory: Other (decreased b/s b/l)
GI: Soft
Neuro/Psych: AO x 3
Data Reviewed
-
Date of Service: December 24, 2023
EKG: Tracing Personally Visualized and interpreted (sr)
Echo: Tracing Personally Visualized and interpreted and Report Reviewed by me
Labs: Labs Reviewed by me
--- NOTE | 2023-12-24 14:43 | PN.CDI ---
CDI
- -
CDI:
Physician Documentation Request
Admit Date: 12/23/23 14:12
Dear Doctor Kelly,
Clinical Indicators:
Patient admitted with acute metabolic encephalopathy due to possible pneumonia.
12/23 PN, 'Acute Hypoxic Respiratory Insufficiency'
Sao2 on admission:
12/23/23
11:26 12/23/23
11:34 12/23/23
11:35
SaO2 86 85 78
O2 requirements:
12/23/23
12:55 12/23/23
14:27 12/23/23
17:38
Nasal Cannula flow liters per minute 6 6 6
12/23/23
20:55
Nasal Cannula flow liters per minute 6
Please clarify which of the following accurately represents the patient's respiratory status:
Acute hypoxic respiratory failure
Acute hypoxic respiratory insufficiency only
Other, please specify
Additional information for Respiratory Failure:
Recognized criteria for Respiratory Failure (Source: [facility] Apr 2013)
ABGs: (1 or more) Symptoms Please indicate type if known
1. p)2 <60 or RA SPO2 <91% on RA 1. Tachypnea, SOB, dyspnea Hypoxic
2. pCO2 50 and pH <7.35 2. Use of accessory muscles Hypercapnic
3. pO2 decrease of pCO2 increase by 3. Pallor or cyanosis Hypoxic and Hypercapnic
10 mmHg from baseline if known 4. Anxiety or restlessness Unable to determine
5. Unable to speak in full sentences
Supplemental O2 of > 40% (5LPM) Intubation is not required
Use of terms such as suspected, likely, concern for, or probable (associated with a specific diagnosis that is being evaluated, monitored, or treated as if it exists) are acceptable and can be coded in the inpatient setting, when documented at the
time of discharge.
Thank you,
ZUHAIR Awad RN
CDI Specialist
available via tiger text
Please use your independent medical judgment in providing your response.
[2023-12-24 15:29] LABS: Troponin I 0.729 ng/ml
[2023-12-24 16:44] LABS: Glucose - Point of Care 182 mg/dl (70-99)
--- NOTE | 2023-12-24 17:00 | CM ---
Patient with Hx ESRD on HD, recent CABG with Dx Acute change in mental status, Acute Hypoxic Respiratory Insufficiency, possible pneumonia. O2 2L. Receiving IV Abx. PT/OT Evals pending.
Spoke with patient's Kim;
the patient resides with his and 2 children in a 2nd floor apartment with 13 outside stairs.
Prior to recent admission he was independent with ADLs and ambulation.
The patient was discharged home from on 12/21 and became lethargic at home, unable to walk or eat, and slept in a recliner.
He had 2 falls in the 2 days prior to re-admission.
The patient has no DME or prior VN.
PCP - German Borrero
Pharmacy - [facility]
The patient goes to [facility] - at 10:45 a.m.
--- NOTE | 2023-12-24 17:12 | CM ---
Patient with Hx ESRD on HD, recent CABG with Dx Acute change in mental status, Acute Hypoxic Respiratory Insufficiency, possible pneumonia. O2 2L. Receiving IV Abx. PT/OT Evals pending.
Spoke with patient's Kim;
the patient resides with his and 2 children in a 2nd floor apartment with 13 outside stairs.
Prior to recent admission he was independent with ADLs and ambulation.
The patient was discharged home from on 12/21 and became lethargic at home, unable to walk or eat, and slept in a recliner.
He had 2 falls in the 2 days prior to re-admission.
The patient has no DME or prior VN.
The patient was setup to have a visit from the Transitional Care Nurse but had not been seen.
PCP - German Borrero
Pharmacy - [facility]
The patient goes to [facility] at 10:45 a.m.
is interested in lining up [facility] to HD.
works and is arranging [place] so she can assist the patient.
Their 2 children are nieces ages 6 & 8.
Plan watch for home O2 needs.
Plan follow up after PT/OT Evals.
--- NOTE | 2023-12-24 19:20 | PTCARENOTE ---
Urine specimen not collected- pt dumped urinal x1 and now has not voided since then. Awnery, agitated with care ie(blood draws, meds etc...) he wants to know what is going on... I read him a few notes from providers and told him to discuss with
providers tomorrow. He is ok with that. Tylenol given x1 for minor pain sternal area (surgical). SR on tele, afebrile. Wound noted. Blood culture reported to Dr. Caban. 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
--- NOTE | 2023-12-24 19:25 | PTCARENOTE ---
Remains on 3L NC- failed room air trial dropped to 87%.
[2023-12-24] MEDS: MAXIPIME 1000 MG IV (21:22)
[2023-12-24] MEDS: STERILE WATER FOR INJECTION 10 ML IV (21:23)
[2023-12-24 23:00] LABS: Glucose - Point of Care 175 mg/dl (70-99)
[2023-12-25] VITALS (31 sets, daily range): BP systolic 82–186; BP diastolic 52–94; PULSE 86–87; O2SAT 95; BMI 26.7
[2023-12-25] MEDS: HEPARIN 5000 UNITS SC ×4 (00:03→23:30)
--- NOTE | 2023-12-25 00:28 | PTCARENOTE ---
Was asked to speak with patient. Patient expressed his concerns about the care he is receiving in IMU. He stated that 'people come in, do what they have to do and leave.' Feels a lack of attention. He stated that he would prefer to be back where
he was last admission on [address] [place] [address]. Told the patient that a move tonight might not be possible due to current census and we can take a look to address a move tomorrow if appropriate. Expressed to the patient to speak with the hospitalist about being
downgraded if appropriate. Nursing contract sheltered workshop supervisor made aware of patients concerns and being transferred to [address] [place] [address]. Night RN aware of conversation and concerns.
Patient was appreciative of the attention while he expressed his concerns.
--- NOTE | 2023-12-25 06:29 | PTCARENOTE ---
Patient up in chair until around midnight, assisted back to bed for sleep. Patient reports tremors to hands states 'no one has done any neurologic testing for this'. Encouraged patient to speak with providers during the day and advocate for himself.
Thorough education provided on abx; pt stated he does not know why he is on abx. Verbalized understanding. Pt appears forgetful, and frustrated on overall situation. Pt states he feels like he doesnt get enough attention. Overnight pt anuric. Tele
showing NSR. Afebrile. 2L NC in place, encouraged I.S. Sternal incision UNSCRAMBLER, sutures to distal portion intact. Fistula +/+. Tylenol provided for comfort. Pt requesting to be moved to 2N. Will pass along to dayshift. Call joiner within reach. Plan for
HD today.
[2023-12-25] MEDS: EMLA CREAM 1 GRAM TOPICAL (07:30)
--- NOTE | 2023-12-25 07:47 | W.PN.HOSP.TC ---
Addendum entered and electronically signed by Mila Mendoza MD 12/25/23 11:57:
# Acute hypoxic respiratory failure
Original Note:
Today's Communication/Plan
-
see A/P
Assessment / Plan
Assessment / Plan
HPI: 43-year-old male with past medical history of CAD s/p CABG on December 16, diabetes, ESRD on HD MWF; who presented with change in mental status. Additional history was obtained from patient's at bedside. Patient was just discharged from
[facility] the day prior following bypass surgery. noted since returning home, patient has had multiple falls and appeared more lethargic which is not his baseline.
Patient also had 1 episode of vomiting in the morning. Patient was brought to the emergency room for evaluation was noted to be hypoxic with pulse ox in the 70s on RA. did notice that patient has had low pulse ox intermittently during his
recent hospitalization, but was not discharged on supplemental oxygen.
A/P:
# Acute change in mental status/ acute metabolic encephalopathy, secondary to infection (possible pneumonia/bacteremia) vs medication-related
One set blood culture from admission positive, follow S/S
follow repeat blood Cx until clearance
CT head on admission showed no acute intracranial abnormality.
Hold oxycodone, cyclobenzaprine and gabapentin which were all new
Cont cefepime and PO doxycycline
MS improved and back to baseline, today AOX3
PT/OT eval when able
# Acute Hypoxic Respiratory Insufficiency, suspect multifactorial related to mental status, atelectasis and possible pneumonia
Continue supplemental oxygen, weaned from 6L on admission to 1L NC, pt not on home O2
Encourage use of incentive spirometer
# Hyperkalemia, resolved
s/p Lokelma, Insulin/dextrose
Cont HD for hyperkalemia treatment
# Abnormal EKG: ST elevations noted diffusely, suggestive of pericarditis vs LVH with repol abnormalities, no symptoms of pericarditis
Card on board
# Mild Hyponatremia
# Isolated AST elevation
AST at 164
Monitor LFT
Hold EDIPHONE OPERATOR Lipitor
# Coronary Artery Disease s/p recent CABG
Continue Aspirin and Plavix
CT surgery/cardiology consulted
# Essential Hypertension
Hold losartan due to hyperkalemia
# Hyperlipidemia
EDIPHONE OPERATOR Lipitor on hold
# Diabetes Mellitus, Type II
HgbA1c 6.1 in November 2023
Continue diabetic diet
Monitor sugars and continue coverage insulin
# ESRD on HD MoWeFr
Renal on board
# Anemia of Chronic Disease
Hgb stable compared to previous
# Chronic Left Heel Osteomyelitis
Augmentin on hold while on IV antibiotics
DVT proph: SC Heparin
Code Status: Full Code
DW on the phone
Anticipated Discharge: > 48 hours
Subjective/Interval History
-
Date of Service: December 25, 2023
Objective Data
-
Labs:
Laboratory Results
12/25/23
06:00
WBC Pending
Hgb Pending
Hct Pending
Plt Count Pending
Sodium Pending
Potassium Pending
Chloride Pending
Carbon Dioxide Pending
BUN Pending
Creatinine Pending
Glucose Pending
Calcium Pending
Total Bilirubin Pending
AST Pending
ALT Pending
Alkaline Phosphatase Pending
Vital Signs:
Vital Signs
Temp Pulse Resp BP Pulse Ox
36.8 C 72 14 162/78 99
12/25/23 05:29 12/25/23 06:22 12/25/23 06:22 12/25/23 06:22 12/25/23 06:22
I&O
12/24/23 12/25/23 12/26/23
06:59 06:59 06:59
Intake Total 1280 / 1280
Balance 1280 / 1280
Review of Systems
-
All other systems: Reviewed and negative
Physical Exam
-
General: Well Developed, Well Nourished, Comfortable, Respiratory Distress (mild) and Conversant
HEENT: Normocephalic, Atraumatic, Nose Appears Normal, Ears Appear Normal and Oxygen (1L NC)
Respiratory: Clear to Auscultation and Non Labored Respirations; Negative Accessory Resp Muscle Use
Cardiac: Regular Rhythm, S1/S2 and Other (chest wall incision clean and intact)
GI: Soft, Nontender, Nondistended and Normal Bowel Sounds
Skin: Warm and Dry
Neuro: Awake and Alert
Psych: Calm and Intact Judgement/Insight
Data Reviewed
-
CT Scan: Report Reviewed by me
Labs: Labs Reviewed by me
[2023-12-25] MEDS: NOVOLOG FLEXPEN-LOW RESISTANCE 1 UNITS SC ×2 (08:00→17:00)
[2023-12-25 08:09] LABS: Glucose - Point of Care 173 mg/dl (70-99)
[2023-12-25 08:45] LABS: Hematocrit 24.7 % (39.0-52.0); Hemoglobin 8.2 g/dL (13.0-18.0); Mean Corp Hgb Conc. 33.2 g/dL (33.0-37.0); Mean Corpuscular Hgb 30.6 pg (27.0-31.0); Mean Corpuscular Volume 92.2 fL (80.0-94.0); Mean Platelet Volume 9.8 fL (7.4-10.4); Platelet Count 224 10^3/uL (130-400); Red Blood Cell Count 2.68 10^6/uL (4.70-6.10); Red Cell Dist. Width 16.6 % (11.5-14.5); White Blood Cell Count 9.6 10^3/uL (4.8-10.8)
--- NOTE | 2023-12-25 08:45 | W.PN.CD ---
Addendum entered and electronically signed by Keshav Francisco MD 12/25/23 14:34:
CDI inquiry, non ischemic myocardial injury
Original Note:
Today's Communication / Plan
-
No new recommendations
Continue medications
We will sign off please call with questions/concerns.
Impression / Plan
-
S: 43 y/o male with coronary artery disease status post mid LAD stent from 08/2022 and 05/2023, now s/p CABG x 3 12/17/23, hypertension, diabetes type 2, dyslipidemia, diabetic neuropathy, diabetic retinopathy, osteomyelitis to the heel, end-stage
renal disease on dialysis who was d/c'd from the hospital yesterday after bypass surgery and is back with weakness and lethargy and hypoxia (as low as 70's per ED physician). He is now recovering and still requiring low level oxygen.
Lethargy, weakness: acute hypoxic RF
- essentially resolved on 1L saturating 100%
-in setting of hypoxia (which was severe with SPO2 in 70's), which has improved on O2.
-Likely medication related
-Receiving HD, continued weakness but improving, PT/OT ensure OK to go homme
Abnormal EKG:
-ST elevations noted diffusely, suggestive of pericarditis vs LVH with repol abnormalities, no symptoms of pericariditis
-echo with normal wall motion and EF
-no anginal chest pain, just incisional
ESRD on HD:
-nephrology consulted
CAD s/p CABG x 3 12/17/23:
-stable
-CT surgery on board
-ASA, Plavix, statin, BB
Anemia:
-chronic, follow
DM2
hx Osteomyelitis
Subjective: Feeling better anticipating going home
Physical Exam
Vital Signs/Labs
Vital Signs
Temp Pulse Resp BP Pulse Ox
97.8 F 72 14 162/78 99
12/25/23 07:40 12/25/23 06:22 12/25/23 06:22 12/25/23 06:22 12/25/23 06:22
12/24/23 12/25/23 12/26/23
06:59 06:59 06:59
Actual Weight 182 lb 15.739 oz 186 lb 4.65 oz
PT 17.1 Sec (11.4-14.6) H 12/23/23 11:47
INR 1.39 12/23/23 11:47
APTT 43.0 Sec (23.4-35.0) H 12/23/23 11:47
Magnesium 2.4 mg/dl (1.6-2.3) H 12/24/23 05:15
12/23/23
11:47
Mnx-Q-Usfdabtmbsk Pept > 72752
LAB Results
12/23/23 12/23/23 12/23/23
11:47 16:54 23:13
Troponin I 0.356 H* 0.463 H* D 0.682 H* D
12/24/23 12/24/23
05:15 14:26
Troponin I 0.809 H* 0.729 H*
Physical Exam
Constitutional: No acute distress
EENT: Anicteric
Cardiovascular: Rhythm & rate is regular and Pedal edema is absent
Respiratory: Other (decreased inspiratory effort wtih faint crackles b/l likely atelectasis )
GI: Soft
Neuro/Psych: AO x 3
Data Reviewed
-
Date of Service: December 25, 2023
EKG: Tracing Personally Visualized and interpreted (sr)
Echo: Report Reviewed by me
Labs: Labs Reviewed by me (when returned )
Total Time Spent with Patient (in minutes): discussed with patient and
[2023-12-25 08:55] LABS: ALT (SGPT) 11 U/L (0-50); AST (SGOT) 46 U/L (17-59); Albumin 3.7 g/dl (3.5-5.0); Alkaline Phosphatase 104 U/L (38-126); Blood Urea Nitrogen 77 mg/dl (9-20); Calcium 9.3 mg/dl (8.4-10.2); Carbon Dioxide 24 mmol/L (22-30); Chloride 88 mmol/L (98-107); Direct Bilirubin 0.9 mg/dl (0.0-0.4); Glucose 132 mg/dl (70-99); Potassium 4.9 mmol/L (3.5-5.1); Sodium 129 mmol/L (135-145); Total Bilirubin 1.2 mg/dl (0.2-1.3)
[2023-12-25] MEDS: RETACRIT 8000 UNITS IV (09:23)
[2023-12-25 09:29] LABS: Estimated Creatinine Clearance 10 ml/min; eGFR 5.77
--- NOTE | 2023-12-25 09:42 | W.PN.ID1 ---
Date of Service
Date of Service: December 25, 2023
Today's Communication
See below.
Assessment / Plan
# CoNS bacteremia 1 of 2 = contaminant.
# Fever 100.8 x1 resolved
# Leukocytosis - resolved
# Acute hypoxic respiratory insufficiency improving
# Possible PNA. CT with bibasilar opacities. Pt denies cough/SOB
# MRSA colonized
# Recent CABG x 3 (12/17/23)
- Follow reepeat blood cx's.
- Continue cefepime 1g IV q24 and po doxycycline (d3)
At time of discharge, transition to doxycycline 100mg po bid plus cefuroxime 500mg po qd through 12/29/23.
- Follow oxygen requirement status
# ESRD on HD via AVF
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
-(AUGMENTIN 875MG SHOULD BE AVOIDED FOR CrCL <30, as in this patient.)
- Heel wound is not infected; no deep probe, no exposed bone
- Observe without abx.
# DM with neuropathy
#Additional Past Medical History:
DM2
Neuropathy
HTN
ESRD on HD via LUE AVF
CAD s/p stent; s/p CABG x3 (12/17/23)
Systolic heart failure
MRSA screen positive
Left heel chronic wound
Left 1st, 5th toe amputations
Chief Complaint
-: Pneumonia
Subjective / Review of Systems
Feels well. no complaints.
Vital Signs / Physical Exam
Vital Signs
Vital Signs
Temp Pulse Resp BP Pulse Ox
97.8 F 72 14 162/78 99
12/25/23 07:40 12/25/23 06:22 12/25/23 06:22 12/25/23 06:22 12/25/23 06:22
Physical Exam
Constitutional: No Acute Distress and Comfortable
Pulmonary: Clear
Gastrointestinal: Soft, Non Tender and Non Distended
Extremities: Edema (1+)
Neurological: AO x 3
Objective Data
Lab Data
Lab Results
12/25/23 08:20
12/25/23 08:20
PT 17.1 Sec (11.4-14.6) H 12/23/23 11:47
INR 1.39 12/23/23 11:47
APTT 43.0 Sec (23.4-35.0) H 12/23/23 11:47
Estimated Creat Clear 10 ml/min 12/25/23 08:20
Lactic Acid Cancelled 12/23/23 16:09
Total Bilirubin 1.2 mg/dl (0.2-1.3) 12/25/23 08:20
AST 46 U/L (17-59) 12/25/23 08:20
ALT 11 U/L (0-50) 12/25/23 08:20
Alkaline Phosphatase 104 U/L (38-126) 12/25/23 08:20
Most recent labs reviewed.
Micro Results:
12/25/23 08:20 Blood Culture - Pending
Blood/Venous
12/24/23 20:26 Blood Culture - Pending
Blood/Venous
12/24/23 17:23 Blood Culture - Pending
Blood/Venous
12/23/23 11:47 Blood Culture - Preliminary
Blood/Venous Positive culture in progress
Gram Stain - Preliminary
12/23/23 11:47 Blood Culture - Preliminary
Blood/Venous No Growth in 24 hours- Final report to follow
12/23/[address]: Patchy parenchymal opacity within both lower lobes as well as the mid to inferior aspect of the left upper lobe. Main differential considerations of pneumonia and/or atelectasis. Small focus of parenchymal opacity in the
anteromedial and superior aspect of the right middle lobe, which is likely focal atelectasis.
12/23/[address]: No evidence of acute intracranial abnormality.
12/23/23 CXR: The lungs appear clear for portable AP technique. Cardiac silhouette size is enlarged with no evidence for pulmonary edema or pleural effusion.
--- NOTE | 2023-12-25 10:49 | PTCARENOTE ---
Pt AAOPx3 for HD . Holding meds pre HD. Pt would like to be [place] [address] [place] [address] .
--- NOTE | 2023-12-25 11:19 | W.PN.NEPH.HD ---
Assessment
-
Seen on HD. no complaints. VSS, on 1L NC. access ok
await PT/OT
Progress Note - Hemodialysis
-
Date of Service: December 25, 2023
Duration: 30 minutes and 3 hours
Potassium Bath: 2
Calcium Bath: 2.5
Opti-Dialyzer: 160
Ultrafiltration: Other (3kg)
Blood Flow: 400
Dialysate Flow: 600
Heparin: no
EPO: 8000 units
[2023-12-25] MEDS: B COMPLEX w/VITAMIN C 1 CAPLET PO (11:58)
[2023-12-25] MEDS: VIBRAMYCIN 100 MG PO ×2 (11:59→20:15)
[2023-12-25] MEDS: VITAMIN D3 (cholecalciferol) 25 MCG PO (11:59)
[2023-12-25] MEDS: PLAVIX 75 MG PO (11:59)
[2023-12-25] MEDS: PROTONIX 40 MG PO (11:59)
[2023-12-25] MEDS: ASPIR LOW (ENTERIC COATED) 81 MG PO (11:59)
[2023-12-25] MEDS: TOPROL XL 12.5 MG PO (12:00)
[2023-12-25] MEDS: RENVELA PO (12:01)
[2023-12-25] MEDS: RENVELA 800 MG PO ×2 (12:01→16:59)
[2023-12-25 12:23] LABS: Glucose - Point of Care 110 mg/dl (70-99)
[2023-12-25] MEDS: NOVOLOG FLEXPEN-LOW RESISTANCE SC (12:26)
--- NOTE | 2023-12-25 12:37 | PTCARENOTE ---
Pt POX alarm baecause of hand movement while eating upsetting pt . Will spot check .. Dr Mendoza had tuerned O2 down to 1 liter earlier, pt did lizabeth while ambulating to chair now on 2 l. Pt would like to go home, Sr Mendoza aware stated pt not ready
--- NOTE | 2023-12-25 14:16 | PN.CDI ---
CDI
- -
CDI:
Physician Documentation Request
Admit Date: 12/23/23 14:12
Dear Cardiology,
Please review the following and provide your response in the progress notes.
Clinical Indicators:
- Patient admit for mental status change after bypass surgery
- 12/24 Cardiology 'Abnormal EKG...ST elevations noted diffusely, suggestive of pericarditis vs LVH with repol abnormalities'
- Cardiology 'Echocardiogram...no significant change'
- 12/24 PN 'possible pneumonia/bacteremia'
- Labs as follows:
Laboratory Tests
12/23/23 12/23/23 12/23/23
11:47 16:54 23:13
Troponin I 0.356 H* 0.463 H* D 0.682 H* D
12/24/23 12/24/23
05:15 14:26
Troponin I 0.809 H* 0.729 H*
Please clarify the following regarding the documented myocardial infarction
Non-ischemic myocardial injury
Type II KS due to pneumonia
NSTEMI
Other
Use of terms such as suspected, likely, concern for, or probable (associated with a specific diagnosis that is being evaluated, monitored, or treated as if it exists) are acceptable and can be coded in the inpatient setting, when documented at the
time of discharge.
Thank you,
Trupti Casarez RN
CDI Specialist
Please use your independent medical judgment in providing your response.
--- NOTE | 2023-12-25 15:38 | PTCARENOTE ---
Report to [address] [place] [address] , seen by PT OT. O2 off at 98% on ra. Awaiting transport
--- NOTE | 2023-12-25 16:05 | PTCARENOTE ---
I offered to change knee dressings and pt stated he wanted [place] nurse to do it
--- NOTE | 2023-12-25 16:06 | PTOTSP ---
pt currently requires supervision to complete simple ADLs, functional transfers, ambulation. reviewed sternal precautions and impact on ADLs, ROM. pt verbalized understanding. no acute OT needs identified at this time, will sign off.
--- NOTE | 2023-12-25 16:42 | PTCARENOTE ---
Received patient as transfer from IMU into room 2126. Patient AAOx3, standby assist to ambulate in room, VSS, HD session completed earlier in day. Wound dressings on B/L knees and L heel changed by this RN. Patient oriented to room and call rhys,
states no concerns at this time.
[2023-12-25 16:43] LABS: Glucose - Point of Care 195 mg/dl (70-99)
[2023-12-25] MEDS: STERILE WATER FOR INJECTION 10 ML IV (20:16)
[2023-12-25] MEDS: MAXIPIME 1000 MG IV (20:16)
[2023-12-25 21:21] LABS: Glucose - Point of Care 187 mg/dl (70-99)
[2023-12-26 03:01] VITALS: BP 143/68
[2023-12-26 05:21] LABS: Hematocrit 25.4 % (39.0-52.0); Hemoglobin 8.4 g/dL (13.0-18.0); Mean Corp Hgb Conc. 33.1 g/dL (33.0-37.0); Mean Corpuscular Volume 90.7 fL (80.0-94.0); Mean Platelet Volume 9.3 fL (7.4-10.4); Platelet Count 307 10^3/uL (130-400); Red Cell Dist. Width 16.7 % (11.5-14.5)
[2023-12-26 06:00] VITALS: BMI 25.8
[2023-12-26 06:16] LABS: ALT (SGPT) 13 U/L (0-50); AST (SGOT) 37 U/L (17-59); Albumin 3.8 g/dl (3.5-5.0); Alkaline Phosphatase 97 U/L (38-126); Blood Urea Nitrogen 53 mg/dl (9-20); Calcium 9.5 mg/dl (8.4-10.2); Carbon Dioxide 24 mmol/L (22-30); Chloride 92 mmol/L (98-107); Direct Bilirubin 0.6 mg/dl (0.0-0.4); Estimated Creatinine Clearance 13 ml/min; Glucose 229 mg/dl (70-99); Potassium 4.4 mmol/L (3.5-5.1); Sodium 133 mmol/L (135-145); eGFR 8.64
[2023-12-26 07:10] VITALS: BP 175/97
[2023-12-26 07:35] LABS: Glucose - Point of Care 196 mg/dl (70-99)
[2023-12-26] MEDS: NOVOLOG FLEXPEN-LOW RESISTANCE 1 UNITS SC (08:12)
[2023-12-26] MEDS: VIBRAMYCIN 100 MG PO (08:13)
[2023-12-26] MEDS: VITAMIN D3 (cholecalciferol) 25 MCG PO (08:13)
[2023-12-26] MEDS: B COMPLEX w/VITAMIN C 1 CAPLET PO (08:13)
[2023-12-26] MEDS: TOPROL XL 12.5 MG PO (08:13)
[2023-12-26] MEDS: RENVELA 800 MG PO (08:13)
[2023-12-26] MEDS: PLAVIX 75 MG PO (08:13)
[2023-12-26] MEDS: ASPIR LOW (ENTERIC COATED) 81 MG PO (08:13)
[2023-12-26] MEDS: PROTONIX 40 MG PO (08:13)
[2023-12-26] MEDS: HEPARIN 5000 UNITS SC (08:14)
--- NOTE | 2023-12-26 10:24 | W.PN.HOSP.TC ---
Addendum entered and electronically signed by Mila Mendoza MD 12/26/23 13:46:
total DC time 39 min
Original Note:
Today's Communication/Plan
-
see A/P
Assessment / Plan
Assessment / Plan
HPI: 43-year-old male with past medical history of CAD s/p CABG on December 16, diabetes, ESRD on HD MWF; who presented with change in mental status. Additional history was obtained from patient's at bedside. Patient was just discharged from
[facility] the day prior following bypass surgery. noted since returning home, patient has had multiple falls and appeared more lethargic which is not his baseline.
Patient also had 1 episode of vomiting in the morning. Patient was brought to the emergency room for evaluation was noted to be hypoxic with pulse ox in the 70s on RA. did notice that patient has had low pulse ox intermittently during his
recent hospitalization, but was not discharged on supplemental oxygen.
A/P:
# Acute change in mental status/ acute metabolic encephalopathy, secondary to infection (possible pneumonia/bacteremia) vs medication-related
One set (out of 2) blood culture from admission positive for CONS, hence likely contaminant.
Repeat blood cultures negative.
CT head on admission showed no acute intracranial abnormality.
Hold oxycodone, cyclobenzaprine and gabapentin which were all new
cefepime and PO doxycycline can be deescalated to doxycycline 100mg po bid plus cefuroxime 500mg po qd through 12/29/23 per ID
MS improved and back to baseline, today AOX3
PT/OT : no needs
# Acute Hypoxic Respiratory Insufficiency, suspect multifactorial related to mental status, atelectasis and possible pneumonia
weaned off O2 support (from 6L on admission)
Encourage use of incentive spirometer
# Hyperkalemia, resolved
s/p Lokelma, Insulin/dextrose
Cont HD for hyperkalemia treatment
# Abnormal EKG: ST elevations noted diffusely, suggestive of pericarditis vs LVH with repol abnormalities, no symptoms of pericarditis/chest pain
Card on board
# Mild Hyponatremia
# Isolated AST elevation, resolved
Ok to resume LICENSED GUIDE Lipitor
# Coronary Artery Disease s/p recent CABG
Continue Aspirin and Plavix
CT surgery/cardiology consulted
# Essential Hypertension
Hold losartan due to hyperkalemia
Would change LICENSED GUIDE Toprol to Coreg for better BP affect
# Hyperlipidemia
LICENSED GUIDE Lipitor
# Diabetes Mellitus, Type II
HgbA1c 6.1 in November 2023
Continue diabetic diet
Monitor sugars and continue coverage insulin
# ESRD on HD MoWeFr
Renal on board
# Anemia of Chronic Disease
Hgb stable compared to previous
# Chronic Left Heel Osteomyelitis
Augmentin on hold while on other antibiotics
DVT proph: SC Heparin
Code Status: Full Code
DW RN
DW on the phone
Anticipated Discharge: Today
Subjective/Interval History
-
Date of Service: December 26, 2023
Objective Data
-
Labs:
Laboratory Results
12/26/23
05:05
WBC 9.0
Hgb 8.4 L
Hct 25.4 L
Plt Count 307 D
Sodium 133 L
Potassium 4.4
Chloride 92 L
Carbon Dioxide 24
BUN 53 H
Creatinine 7.5 H*
Glucose 229 H
Calcium 9.5
Total Bilirubin 1.0
AST 37
ALT 13
Alkaline Phosphatase 97
Vital Signs:
Vital Signs
Temp Pulse Resp BP Pulse Ox
36.5 C 81 16 175/97 99
12/26/23 07:10 12/26/23 07:10 12/26/23 07:10 12/26/23 07:10 12/26/23 07:10
I&O
12/25/23 12/26/2312/26/24
06:59 06:59 06:59
Intake Total 1280 / 1280 480 / 480
Output Total 100 / 100
Balance 1280 / 1280 380 / 380
Review of Systems
-
All other systems: Reviewed and negative
Physical Exam
-
General: Well Developed, Well Nourished, Comfortable and Conversant
HEENT: Normocephalic, Atraumatic, Nose Appears Normal and Ears Appear Normal
Respiratory: Clear to Auscultation and Non Labored Respirations; Negative Accessory Resp Muscle Use
Cardiac: Regular Rhythm, S1/S2 and Other (chest wall incision clean and intact)
GI: Soft, Nontender, Nondistended and Normal Bowel Sounds
Skin: Warm and Dry
Neuro: Awake and Alert
Psych: Calm and Intact Judgement/Insight
Data Reviewed
-
CT Scan: Report Reviewed by me
Labs: Labs Reviewed by me
--- NOTE | 2023-12-26 10:47 | W.PN.NEPH.PH ---
Today's Communication / Plan
-
dc
Assessment/Plan
-
Assessment:
hyperkalemia
altered mental status/lethargy
hypoxia
CAD s/p CABG
HTN
T2DM
ESRD on HD MWF
Chronic L heel osteomyelitis
Plan:
Next HD thursday at OP unit
po abx per ID, dosed for ESRD
-
-
Date of Service: December 26, 2023
CC / HPI / ROS
-
Chief Complaint:
ESRD on HD
History of Present Illness:
s/p CABG on 12/16
on abx for PNA
tolerated HD yesterday
BP stable
Review of Systems:
no CP/SOB
Labs
-
Labs:
WBC 9.0 10^3/uL (4.8-10.8) 12/26/23 05:05
RBC 2.80 10^6/uL (4.70-6.10) L 12/26/23 05:05
Hgb 8.4 g/dL (13.0-18.0) L 12/26/23 05:05
Hct 25.4 % (39.0-52.0) L 12/26/23 05:05
Plt Count 307 10^3/uL (130-400) D 12/26/23 05:05
Sodium 133 mmol/L (135-145) L 12/26/23 05:05
Potassium 4.4 mmol/L (3.5-5.1) 12/26/23 05:05
Chloride 92 mmol/L (98-107) L 12/26/23 05:05
Carbon Dioxide 24 mmol/L (22-30) 12/26/23 05:05
BUN 53 mg/dl (9-20) H 12/26/23 05:05
Creatinine 7.5 mg/dL (0.7-1.3) H* 12/26/23 05:05
eGFR 8.64 12/26/23 05:05
Glucose 229 mg/dl (70-99) H 12/26/23 05:05
Calcium 9.5 mg/dl (8.4-10.2) 12/26/23 05:05
Phosphorus 5.9 mg/dl (2.5-4.5) H 12/24/23 05:15
Ohi-N-Kyfdlwrlpkr Pept > 87206 pg/ml 12/23/23 11:47
Albumin 3.8 g/dl (3.5-5.0) 12/26/23 05:05
Physical Exam
-
Vital Signs:
Vital Signs
Temp Pulse Resp BP Pulse Ox
97.7 F 81 16 175/97 99
12/26/23 07:10 12/26/23 07:10 12/26/23 07:10 12/26/23 07:10 12/26/23 07:10
Cardiovascular:: Regular rate and rhythm
Respiratory:: Bilateral: CTA
Lung Excursion:: Normal
Abdomen:: Nontender and Soft
Bowel Sounds:: Normal
Extremity Edema:: None: Bilateral:
[2023-12-26 11:20] VITALS: BP 159/85
[2023-12-26] MEDS: COREG 3.125 MG PO (11:22)
--- NOTE | 2023-12-26 11:39 | CM ---
Patient seen at bedside. Patient states his will pick him up and that he will return to HD at [facility]. Patient states that he has MC and completed IMM. Signed form placed on chart. CM will continue to follow for discharge planning
needs.
Plan; home with spouse follow up with HD
--- NOTE | 2023-12-26 11:51 | W.PN.ID1 ---
Date of Service
Date of Service: December 26, 2023
Today's Communication
Transition to doxycycline 100mg po bid plus cefuroxime 500mg po qd through 12/29/23.
Assessment / Plan
# CoNS bacteremia 1 of 2 = contaminant.
# Fever 100.8 x1 resolved
# Leukocytosis - resolved
# Acute hypoxic respiratory insufficiency improving
# Possible PNA. CT with bibasilar opacities. Pt denies cough/SOB
# MRSA colonized
# Recent CABG x 3 (12/17/23)
- Repeat blood cx's neg to date.
- Trasnitio cefepime 1g IV q24 and po doxycycline (d4) to doxycycline 100mg po bid plus cefuroxime 500mg po qd through 12/29/23.
- Follow oxygen requirement status
# ESRD on HD via AVF
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
-(AUGMENTIN 875MG SHOULD BE AVOIDED FOR CrCL <30, as in this patient.)
- Heel wound is not infected; no deep probe, no exposed bone
- Observe without abx.
# DM with neuropathy
#Additional Past Medical History:
DM2
Neuropathy
HTN
ESRD on HD via LUE AVF
CAD s/p stent; s/p CABG x3 (12/17/23)
Systolic heart failure
MRSA screen positive
Left heel chronic wound
Left 1st, 5th toe amputations
Chief Complaint
-: Pneumonia
Subjective / Review of Systems
Feels well.
Vital Signs / Physical Exam
Vital Signs
Vital Signs
Temp Pulse Resp BP Pulse Ox
98.1 F 79 14 159/85 95
12/26/23 11:20 12/26/23 11:20 12/26/23 11:20 12/26/23 11:20 12/26/23 11:20
Physical Exam
Constitutional: No Acute Distress and Comfortable
Pulmonary: Clear
Gastrointestinal: Soft, Non Tender and Non Distended
Neurological: AO x 3
Objective Data
Lab Data
Lab Results
12/26/23 05:05
12/26/23 05:05
PT 17.1 Sec (11.4-14.6) H 12/23/23 11:47
INR 1.39 12/23/23 11:47
APTT 43.0 Sec (23.4-35.0) H 12/23/23 11:47
Estimated Creat Clear 13 ml/min 12/26/23 05:05
Lactic Acid Cancelled 12/23/23 16:09
Total Bilirubin 1.0 mg/dl (0.2-1.3) 12/26/23 05:05
AST 37 U/L (17-59) 12/26/23 05:05
ALT 13 U/L (0-50) 12/26/23 05:05
Alkaline Phosphatase 97 U/L (38-126) 12/26/23 05:05
Most recent labs reviewed.
Micro Results:
12/23/23 11:47 Blood Culture - Final
Blood/Venous Coagulase neg. staphylococcus
Additional testing on request
Gram Stain - Final
12/25/23 08:20 Blood Culture - Preliminary
Blood/Venous No Growth in 24 hours- Final report to follow
12/24/23 20:26 Blood Culture - Preliminary
Blood/Venous No Growth in 24 hours- Final report to follow
12/24/23 17:23 Blood Culture - Preliminary
Blood/Venous No Growth in 24 hours- Final report to follow
12/23/23 11:47 Blood Culture - Preliminary
Blood/Venous No Growth in 48 hours- Final report to follow
12/23/[address]: Patchy parenchymal opacity within both lower lobes as well as the mid to inferior aspect of the left upper lobe. Main differential considerations of pneumonia and/or atelectasis. Small focus of parenchymal opacity in the
anteromedial and superior aspect of the right middle lobe, which is likely focal atelectasis.
12/23/[address]: No evidence of acute intracranial abnormality.
12/23/23 CXR: The lungs appear clear for portable AP technique. Cardiac silhouette size is enlarged with no evidence for pulmonary edema or pleural effusion.
[2023-12-26] MEDS: NOVOLOG FLEXPEN-LOW RESISTANCE SC (12:21)
[2023-12-26] MEDS: RENVELA PO (12:21)
--- NOTE | 2023-12-26 13:21 | W.DCSUMMARY ---
Discharge Summary
Discharge Data
Date of Admission: 12/23/23
Date of Discharge: 12/26/23
-
Pending Results: No
Hospital Course
Principal Diagnosis:
Acute toxic encephalopathy likely secondary to medication side effects with oxycodone, cyclobenzaprine and gabapentin
Possible community-acquired pneumonia
Acute hypoxic respiratory failure on admission, resolved
Diffuse ST elevation noted on EKG suggesting of pericarditis versus due to left ventricular repolarization abnormalities, no symptoms of pericarditis clinically
Chronic Diagnoses:�
Coronary Artery Disease status post recent bypass surgery, continue aspirin and Plavix
Essential Hypertension
Hyperlipidemia on Lipitor
Diabetes Mellitus Type II
End-stage renal disease on dialysis Thursday
Anemia of Chronic Disease
Chronic Left Heel Osteomyelitis, on chronic Augmentin
Consultations:�
Cardiology
Pulmonology
Nephrology
Infectious disease
Procedures:�
None
Clinical course:�
This is a 43-year-old male with past medical history as stated above, who was brought in by his due to drowsiness and confusion.
Of note, he recently had bypass surgery on December 17, 2023, and was discharged with oxycodone, cyclobenzaprine and gabapentin (new meds).
He was also noted to be hypoxic on admission, pulse ox in the 70s on room air.
Problem 1:
Acute toxic encephalopathy likely secondary to medication side effects with oxycodone/cyclobenzaprine/gabapentin, and possible community-acquired pneumonia.
This was associated with acute hypoxic respiratory failure on admission, which has resolved (weaned from 6 L admission to room air).
The patient's mental status returned to baseline which is awake and orientated x 3.
He has been informed to hold off on further oxycodone, cyclobenzaprine, and gabapentin going forward.
Of note, 1 set of his blood culture from admission was positive for coag negative staph, hence likely contaminant. Repeat blood cultures were negative.
He received cefepime and doxycycline while in the hospital, and he has been instructed by ID to continue doxycycline 100mg po bid plus cefuroxime 500mg po qd through 12/29/23.
Problem 2:
Essential Hypertension.
His prior to admission losartan was discontinued due to hyperkalemia noted.
To better control his blood pressure, his prior to admission Toprol was changed to Coreg 3.125 mg twice daily- further dosage adjustment per his outpatient PCP or engineering inspection assistant.
As for the rest of his medical problems, they were stable during his hospital stay.
Discharge Plan
-
Patient Disposition: Home (Routine Discharge)
Discharge Diagnosis/Procedures: Acute change in mental status/ acute metabolic encephalopathy likely due to medication effect; Resolved acute Hypoxic Respiratory Insufficiency; recent bypass surgery
Condition: Fair
Diet: As tolerated, Low Fat, Low Cholesterol and Low Sodium
Activity: As tolerated
Driving Restrictions: Not until seen by your Dr
Referrals:
German Borrero MD [Family Provider] - in less than 1 week
Additional Discharge Medication Instructions: Stop oxycodone, cyclobenzaprine and gabapentin.
Your Toprol was changed to Coreg (for better BP effect). There is room to increase Coreg if needed to- defer to your PCP/Boring Machine Operator.
Losartan was stopped due to high potassium level
Take doxycycline 100mg twice daily and cefuroxime 500mg daily through 12/29/23. Avoid the sun and dairy product (milk, cheese, etc.) while on doxycycline.
Resume your amoxicillin after completion of doxycycline and cefuroxime.
Prescriptions:
New
carvedilol 3.125 mg Tablet
3.125 mg PO BID Qty: 60 0RF
doxycycline hyclate 100 mg Capsule
100 mg PO Q12 3 Days Qty: 6 0RF
cefuroxime axetil 500 mg tablet
500 mg PO DAILY 3 Days Qty: 3 0RF
Continued
atorvastatin 40 mg Tablet
40 mg PO DAILY
Dialyvite 800 0.8 mg Tablet
1 tab PO DAILY
cholecalciferol (vitamin D3) [Vitamin D3] 25 mcg (1,000 unit) Tablet
25 mcg PO DAILY
sevelamer carbonate 800 mg Tablet
800 mg PO TID
aspirin 81 mg Tablet,Delayed Release (Dr/Ec)
81 mg PO DAILY
lidocaine-prilocaine 2.5-2.5 % Cream
1 applic TOPICAL DAILYPRN PRN (Reason: before hemodialysis)
Medical Marijuana
2 tab PO DAILYPRN PRN (Reason: mild pain)
Hold Instructions: Resume on 01/20/24.
clopidogrel 75 mg Tablet
75 mg PO DAILY Qty: 90 3RF
acetaminophen 325 mg Tablet
650 mg PO Q6HPRN PRN (Reason: mild pain,headache,temp >101F ) Qty: 0 0RF
pantoprazole 40 mg Tablet,Delayed Release (Dr/Ec)
40 mg PO DAILY Qty: 90 2RF
Held
amoxicillin-pot clavulanate 875-125 mg Tablet
1 tab PO BID
Hold Instructions: Resume on 12/30/23.
Discontinued
cyclobenzaprine 10 mg Tablet
5 mg PO Q8HPRN PRN (Reason: muscle spasm) Qty: 20 0RF
losartan 25 mg Tablet
25 mg PO DAILY Qty: 30 1RF
gabapentin 100 mg Capsule
100 mg PO TID Qty: 30 0RF
oxycodone 5 mg Tablet
2.5 mg PO Q4HPRN PRN (Reason: mild pain) Qty: 10 0RF
metoprolol succinate 25 mg Tablet Extended Release 24 Hr
12.5 mg PO DAILY Qty: 30 1RF
Patient Comments:
12/23/23-family did not know they were suppose to cut this in half
Discharge Orders:
Discharge Patient (As Directed); Ordered 12/26/23
Ordered By: Mila Mendoza
Discharge Date and Time
Discharge Date/Time: 12/26/23 13:10
Print Language: [email or web address]
== END 2023-12-26 13:10 | disposition home or self-care (01) | DRG 91 ==
LOC: 2 NORTH 14:12
PROVIDERS: Physician Assistant Medical; Specialist; ADMITTING PHYSICIAN Internal Medicine; CONSULT PHYSICIAN Internal Medicine Cardiovascular Disease; CONSULT PHYSICIAN Student in an Organized Health Care Education/Training Program; CONSULT PHYSICIAN Thoracic Surgery (Cardiothoracic Vascular Surgery); EMERGENCY PHYSICIAN Emergency Medicine; FAMILY PHYSICIAN Family Medicine; OTHER PHYSICIAN Internal Medicine Infectious Disease
PROC: 5A1D70Z Performance of Urinary Filtration, Intermittent, Less than 6 Hours Per Day (ICD-10-PCS; 2023-12-25)
DX: G92.8 Other toxic encephalopathy (principal); J18.9 Pneumonia, unspecified organism; J96.01 Acute respiratory failure with hypoxia; N18.6 End stage renal disease; M86.672 Other chronic osteomyelitis, left ankle and foot; I50.22 Chronic systolic (congestive) heart failure; I13.2 Hypertensive heart and chronic kidney disease with heart failure and with stage 5 chronic kidney disease, or end stage renal disease; E87.1 Hypo-osmolality and hyponatremia; I5A Non-ischemic myocardial injury (non-traumatic); E87.5 Hyperkalemia; D69.6 Thrombocytopenia, unspecified; D63.8 Anemia in other chronic diseases classified elsewhere; E11.3599 Type 2 diabetes mellitus with proliferative diabetic retinopathy without macular edema, unspecified eye; D63.1 Anemia in chronic kidney disease; E11.69 Type 2 diabetes mellitus with other specified complication; E11.22 Type 2 diabetes mellitus with diabetic chronic kidney disease; E11.40 Type 2 diabetes mellitus with diabetic neuropathy, unspecified; Z99.2 Dependence on renal dialysis; T40.2X5A Adverse effect of other opioids, initial encounter; T48.1X5A Adverse effect of skeletal muscle relaxants [neuromuscular blocking agents], initial encounter; T42.6X5A Adverse effect of other antiepileptic and sedative-hypnotic drugs, initial encounter; I25.10 Atherosclerotic heart disease of native coronary artery without angina pectoris; Z95.1 Presence of aortocoronary bypass graft; Z95.5 Presence of coronary angioplasty implant and graft; E78.5 Hyperlipidemia, unspecified; R94.31 Abnormal electrocardiogram [ECG] [EKG]; W19.XXXA Unspecified fall, initial encounter; Y92.009 Unspecified place in unspecified non-institutional (private) residence as the place of occurrence of the external cause; R29.6 Repeated falls; R79.89 Other specified abnormal findings of blood chemistry; Z98.890 Other specified postprocedural states; Z79.2 Long term (current) use of antibiotics; Z79.02 Long term (current) use of antithrombotics/antiplatelets; Z79.82 Long term (current) use of aspirin; Z79.899 Other long term (current) drug therapy; Z89.422 Acquired absence of other left toe(s); Z88.1 Allergy status to other antibiotic agents
CPT/HCPCS: 93308; 70450; 71045; 71275; 80048; 80053; 82248; 82805; 82962; 83605; 83735; 83880; 84100; 84132; 84484; 85025; 85027; 85610; 85730; 87040; 87150; 87205; 93005; 93321; 93325; 96365; 96375; 97161; 97165; 99285; G0257; P9047; Q5106; Q9967